=== PATIENT | male | born 1960 | race Caucasian/White ===

== ENCOUNTER 2019-10-28 09:57 | Emergency (ER) | payer SELFPAY ==
[2019-10-28] MEDS ORDERED: ACETAMINOPHEN 325 MG TABLET PO ONE (10:54)
[2019-10-28] MEDS ORDERED: NORMAL SALINE 1000 ML 2,250 ML IV ONE (10:54)
[2019-10-28 11:18] LABS: ABSOLUTE LYMPHOCYTES (AUTO) 0.4 10^3/uL (0.5-4.7); ABSOLUTE MONOCYTES (AUTO) 0.7 10^3/uL (0.1-1.4); ABSOLUTE NEUT (AUTO) 5.9 10^3/uL (1.7-8.2); BASOPHILS % (AUTO) 0.4 % (0-2); EOSINOPHILS % (AUTO) 0.2 % (0-6); HEMATOCRIT 43.8 % (37.9-51.0); HEMOGLOBIN 15.1 g/dL (13.5-17.0); LYMPHOCYTES % (AUTO) 6.1 % (13-45); MEAN CORPUSCULAR HEMOGLOBIN 29.8 pg (27.0-33.4); MEAN CORPUSCULAR HGB CONC 34.5 g/dL (32.0-36.0); MEAN CORPUSCULAR VOLUME 86 fl (80-97); MONOCYTES % (AUTO) 9.7 % (3-13); PLATELET COUNT 230 10^3/uL (150-450); RED BLOOD COUNT 5.08 10^6/uL (4.35-5.55); RED CELL DISTRIBUTION WIDTH 13.1 % (11.5-14.0); SEGMENTED NEUTROPHILS % (AUTO) 83.6 % (42-78); TOTAL CELLS COUNTED % (AUTO) 100 %; WHITE BLOOD COUNT 7.1 10^3/uL (4.0-10.5)
[2019-10-28 11:27] LABS: INTERNATIONAL RATION (INR) 1.03; PROTHROMBIN TIME 13.5 SEC (11.4-15.4)
[2019-10-28 11:37] LABS: ALBUMIN 4.2 g/dL (3.5-5.0); ALKALINE PHOSPHATASE 147 U/L (38-126); ANION GAP 7 (5-19); ASPARTATE AMINO TRANSFERASE 150 U/L (17-59); BILIRUBIN,DIRECT 0.1 mg/dL (0.0-0.4); BILIRUBIN,TOTAL 1.1 mg/dL (0.2-1.3); BLOOD UREA NITROGEN 19 mg/dL (7-20); CALCIUM 9.4 mg/dL (8.4-10.2); CARBON DIOXIDE 27 mmol/L (22-30); CHLORIDE 103 mmol/L (98-107); GLUCOSE 122 mg/dL (75-110); POTASSIUM 4.4 mmol/L (3.6-5.0)
[2019-10-28 11:38] LABS: VENOUS BLOOD BASE EXCESS -1.6 mmol/L; VENOUS BLOOD HCO3 22.3 mmol/L (20-32); VENOUS BLOOD PCO2 35.4 mmHg (35-63); VENOUS BLOOD PH 7.42 (7.30-7.42)
--- NOTE | 2019-10-28 11:57 | RADIOLOGY REPORT (SQ) ---
EXAM DESCRIPTION: CHEST SINGLE VIEW IMAGES COMPLETED DATE/TIME: 10/28/2019 11:27 am REASON FOR STUDY: fever COMPARISON: None. EXAM PARAMETERS: NUMBER OF VIEWS: One view. TECHNIQUE: Single frontal radiographic view of the chest acquired. RADIATION DOSE: NA LIMITATIONS: None. FINDINGS: LUNGS AND PLEURA: No opacities, masses or pneumothorax. No pleural effusion. MEDIASTINUM AND HILAR STRUCTURES: No masses. Contour normal. HEART AND VASCULAR STRUCTURES: Heart normal in size. Normal vasculature. BONES: No acute findings. HARDWARE: None in the chest. OTHER: No other significant finding. IMPRESSION: NO ACUTE RADIOGRAPHIC FINDING IN THE CHEST. TECHNICAL DOCUMENTATION: JOB ID: [id number] 2010 [employer]- All Rights Reserved Reading location - IP/workstation name: [email or web address]
--- NOTE | 2019-10-28 13:14 | RADIOLOGY REPORT (SQ) ---
EXAM DESCRIPTION: CT ABD/PELVIS NO ORAL OR IV IMAGES COMPLETED DATE/TIME: 10/28/2019 12:54 pm REASON FOR STUDY: fever, nausea, elevated lfts COMPARISON: None. TECHNIQUE: CT scan of the abdomen and pelvis performed without intravenous or oral contrast. Images reviewed with lung, soft tissue, and bone windows. Reconstructed coronal and sagittal MPR images revi ewed. All images stored on PACS. All CT scanners at this facility use dose modulation, iterative reconstruction, and/or weight based d osing when appropriate to reduce radiation dose to as low as reasonably achievable (ALARA). [facility]: Dose Right [facility]: CareDose [facility]: Dose Right [facility]: Teradose 4D [facility]: [employer] RADIATION DOSE: CT Rad equipment meets quality standard of care and radiation dose reduction techniq ues were employed. CTDIvol: 7.2 mGy. DLP: 408 mGy-cm.mGy. LIMITATIONS: None. FINDINGS: LOWER CHEST: Mild dependent hypoventilatory change. NON-CONTRASTED LIVER, SPLEEN, ADRENALS: Evaluation limited by lack of IV contrast. No identified sign ificant masses. Hepatic steatosis. PANCREAS: No masses. No peripancreatic inflammatory changes. GALLBLADDER: Cholelithiasis. No gallbladder distention, wall thickening or pericholecystic inflammat ory change. RIGHT KIDNEY AND URETER: No suspicious masses. Assessment limited by lack of IV contrast. Nonspecifi c perinephric stranding. No significant calcifications. No hydronephrosis or hydroureter. LEFT KIDNEY AND URETER: No suspicious masses. Assessment limited by lack of IV contrast. Nonspecific perinephric stranding. No significant calcifications. No hydronephrosis or hydroureter. AORTA AND RETROPERITONEUM: No aneurysm. No retroperitoneal masses or adenopathy. BOWEL AND PERITONEAL CAVITY: No obvious masses or inflammatory changes. No free fluid. Few scattered diverticula. APPENDIX: Normal. PELVIS, BLADDER, AND ABDOMINAL WALL:No abnormal masses. No free fluid. Bladder normal. Fat containin g right inguinal hernia. BONES: No significant findings. OTHER: No other significant finding. IMPRESSION: 1. No evidence of acute intra-abdominal/pelvic process. 2. Hepatic steatosis. Cholelithiasis. COMMENT: Quality ID # [id number]: Final reports with documentation of one or more dose reduction techniques (e.g., Automated exposure control, adjustment of the mA and/or kV according to patient size, use of iterative reconstruction technique) TECHNICAL DOCUMENTATION: JOB ID: [id number] 2010 [employer]- All Rights Reserved Reading location - IP/workstation name: [email or web address]
[2019-10-28 14:52] LABS: APPEARANCE,URINE CLEAR; BILIRUBIN,URINE NEGATIVE (NEGATIVE); COLOR,URINE YELLOW; GLUCOSE, URINE NEGATIVE (NEGATIVE); KETONES,URINE 20 mg/dL (NEGATIVE); PROTEIN,URINE NEGATIVE (NEGATIVE); URINE SPECIFIC GRAVITY 1.019
--- NOTE | 2019-10-28 15:00 | ER Document Report ---
ED General - General Chief Complaint: Nausea Stated Complaint: NAUSEA,COUGH,SHORT OF BREATH Time Seen by Provider: 10/28/19 10:10 Mode of Arrival: Ambulatory Information source: Patient - HPI Notes: Patient arrives complaining of fever generalized body aches and dark urine. He states the generalized body aches has been going on for approximately 24 to 48 hours. They are worse with movement and better with rest. They radiate throughout his body. They are moderate to severe. He states that he is unsure how high his fever has been as he has not taken his temperature. He denies any vomiting or diarrhea. He has had no significant cough or congestion. He states his main symptoms of just been fever and body aches. He denies any known exposures to the COVID virus. - Related Data Allergies/Adverse Reactions: haloperidol [From Haldol] Allergy (Verified 10/28/19 10:49) Past Medical History - General Information source: Patient - Social History Smoking Status: Never Smoker Chew tobacco use (# tins/day): No Frequency of alcohol use: Occasional Drug Abuse: None Family History: Reviewed & Not Pertinent Patient has homicidal ideation: No Pulmonary Medical History: Reports: Hx Asthma Review of Systems - Review of Systems Constitutional: Chills, Fever Cardiovascular: denies: Chest pain, Palpitations Respiratory: denies: Cough, Short of breath -: Yes All other systems reviewed and negative Physical Exam - Vital signs Vitals: Temp Pulse Resp BP Pulse Ox 101.2 F H 71 18 114/70 96 10/28/19 10:14 10/28/19 10:14 10/28/19 10:14 10/28/19 10:14 10/28/19 10:14 Interpretation: Febrile Course - Re-evaluation Re-evalutation: 10/28/19 15:02 Patient presents with fever body aches but no other symptoms. Is imaging of the abdomen and chest revealed no evidence of any type of infectious process. His CBC and chemistry are not significantly remarkable. His urine does not appear infected. He does have elevation of his liver enzymes as well as some hepatic steatosis. I am going to recommend to the patient that he quarantine himself into the results of his COVID test have returned. His symptoms do seem suspicious for COVID. I have also given the patient instructions about hepatic steatosis. 10/28/19 15:03 The patient was evaluated during a global COVID-19 pandemic and that diagnosis was suspected/considered upon their initial presentation. Their evaluation, treatment and testing was consistent with current guidelines for patients who present with complaints or symptoms and may be related to COVID-19. 10/28/19 15:04 - Vital Signs Vital signs: Temp Pulse Resp BP Pulse Ox 98.7 F 71 21 H 113/69 96 10/28/19 12:58 10/28/19 10:14 10/28/19 14:00 10/28/19 14:00 10/28/19 14:00 - Laboratory Result Diagrams: 10/28/19 11:02 10/28/19 11:02 Laboratory results interpreted by me: 10/28/19 10/28/19 10/28/19 11:02 11:02 11:39 Lymph % (Auto) 6.1 L Absolute Lymphs (auto) 0.4 L Seg Neutrophils % 83.6 H Glucose 122 H POC Glucose 113 H AST 150 H ALT 187 H Alkaline Phosphatase 147 H - Diagnostic Test Radiology reviewed: Image reviewed, Reports reviewed - EKG Interpretation by Me EKG shows normal: Sinus rhythm Rate: Normal - 70 Rhythm: NSR [place]/QRS: No: Right axis deviation, Left axis deviation Discharge - Discharge Clinical Impression: Suspected COVID-19 virus infection Condition: Stable Disposition: HOME, SELF-CARE Instructions: COVID-19 Guidance for Persons Under Investigation Additional Instructions: CT scan shows that you have "fatty liver" or hepatic steatosis. This means that some fat cells have invaded your liver. This will need to be monitored by your family doctor. If it progresses the fat cells can crowd out the liver cells and cause your liver to not function properly. This is why is very important that it is monitored by your family physician. Your symptoms and evaluation seem consistent with a COVID virus infection. Therefore, even if your COVID test is negative I recommend that you quarantine yourself until your symptoms have disappeared. Prescriptions: Hydrocodone/Acetaminophen [[place] 5-325 mg Tablet] 1 tab PO Q6 3 Days #12 tablet Forms: Return to Work Referrals: ELISEO MESSINA MD [ACTIVE STAFF] - Follow up in 3-5 days
[2019-10-28 15:35] VITALS: BP 121/63
--- NOTE | 2019-10-28 20:07 | EKG REPORT ---
SEVERITY:- NORMAL ECG - SINUS RHYTHM : Confirmed by: Татьяна Hay MD 28-Oct-2019 20:06:07
== END 2019-10-28 15:34 | disposition home or self-care (01) ==
LOC: ER 09:57
DX: U07.1 COVID-19 (principal); M79.10 Myalgia, unspecified site; R50.9 Fever, unspecified; R11.0 Nausea; R05 Cough; R06.02 Shortness of breath; Z20.828 Contact with and (suspected) exposure to other viral communicable diseases
CPT/HCPCS: 93005; 99284; 96360; 96361; 36415; 87040; 82962; 83605; 85025; 85610; 87635; 80053; 81001; 84484; 82803; 71045; 74176; 93010; J7030; C9803

== ENCOUNTER 2019-11-02 11:37 | Inpatient (IN) | payer SELFPAY ==
[2019-11-02 12:05] LABS: VENOUS BLOOD BASE EXCESS -0.8 mmol/L; VENOUS BLOOD HCO3 22.7 mmol/L (20-32); VENOUS BLOOD PCO2 34.5 mmHg (35-63); VENOUS BLOOD PH 7.44 (7.30-7.42)
[2019-11-02 12:06] LABS: ABSOLUTE BASOPHILS # (AUTO) 0.1 10^3/uL (0.0-0.2); ABSOLUTE LYMPHOCYTES (AUTO) 0.8 10^3/uL (0.5-4.7); ABSOLUTE MONOCYTES (AUTO) 0.5 10^3/uL (0.1-1.4); ABSOLUTE NEUT (AUTO) 10.5 10^3/uL (1.7-8.2); BASOPHILS % (AUTO) 0.5 % (0-2); EOSINOPHILS % (AUTO) 0.3 % (0-6); HEMATOCRIT 39.2 % (37.9-51.0); HEMOGLOBIN 13.4 g/dL (13.5-17.0); LYMPHOCYTES % (AUTO) 6.9 % (13-45); MEAN CORPUSCULAR HEMOGLOBIN 29.3 pg (27.0-33.4); MEAN CORPUSCULAR HGB CONC 34.3 g/dL (32.0-36.0); MEAN CORPUSCULAR VOLUME 85 fl (80-97); MONOCYTES % (AUTO) 4.5 % (3-13); PLATELET COUNT 392 10^3/uL (150-450); RED BLOOD COUNT 4.59 10^6/uL (4.35-5.55); RED CELL DISTRIBUTION WIDTH 14.3 % (11.5-14.0); SEGMENTED NEUTROPHILS % (AUTO) 87.8 % (42-78); TOTAL CELLS COUNTED % (AUTO) 100 %; WHITE BLOOD COUNT 11.9 10^3/uL (4.0-10.5)
[2019-11-02 12:19] LABS: INTERNATIONAL RATION (INR) 1.05; PROTHROMBIN TIME 13.9 SEC (11.4-15.4)
[2019-11-02 12:22] LABS: D-DIMER 2.47 ug/mL (0.00-0.50)
[2019-11-02] MEDS ORDERED: ONDANSETRON HCL INJ/PF 4 MG/2 ML SDV IV ONE (12:30)
[2019-11-02 12:59] LABS: ALBUMIN 3.5 g/dL (3.5-5.0); ALKALINE PHOSPHATASE 307 U/L (38-126); ANION GAP 9 (5-19); ASPARTATE AMINO TRANSFERASE 81 U/L (17-59); BILIRUBIN,DIRECT 1.1 mg/dL (0.0-0.4); BILIRUBIN,TOTAL 1.8 mg/dL (0.2-1.3); BLOOD UREA NITROGEN 27 mg/dL (7-20); CALCIUM 9.2 mg/dL (8.4-10.2); CARBON DIOXIDE 26 mmol/L (22-30); CHLORIDE 106 mmol/L (98-107); GLUCOSE 144 mg/dL (75-110); POTASSIUM 3.2 mmol/L (3.6-5.0); TOTAL PROTEIN 7.3 g/dL (6.3-8.2)
--- NOTE | 2019-11-02 13:00 | RADIOLOGY REPORT (SQ) ---
EXAM DESCRIPTION: CHEST SINGLE VIEW IMAGES COMPLETED DATE/TIME: 11/02/2019 12:49 pm REASON FOR STUDY: bed 5 sepsis protocol COMPARISON: 10/28/2019 EXAM PARAMETERS: NUMBER OF VIEWS: One view. TECHNIQUE: Single frontal radiographic view of the chest acquired. RADIATION DOSE: NA LIMITATIONS: None. FINDINGS: LUNGS AND PLEURA: Diffuse bilateral alveolar type infiltrate consistent with either atypic al pneumonia or pulmonary edema. No effusions. Findings have significantly progressed when compared to prior study dated 10/28/2019. MEDIASTINUM AND HILAR STRUCTURES: No masses. Contour normal. HEART AND VASCULAR STRUCTURES: Heart normal in size. Normal vasculature. BONES: No acute findings. HARDWARE: None in the chest. OTHER: No other significant finding. IMPRESSION: Diffuse bilateral airspace disease consistent with atypical pneumonia or edema. TECHNICAL DOCUMENTATION: JOB ID: [id number] 2010 [employer]- All Rights Reserved Reading location - IP/workstation name: [email or web address]
[2019-11-02] MEDS ORDERED: LORAZEPAM INJ 2 MG/1 ML VIAL IV ONE ×2 (13:03→23:00)
[2019-11-02] MEDS ORDERED: PROMETHAZINE HCL INJ 25 MG/1 ML VIAL IV PRN (13:04)
[2019-11-02] MEDS ORDERED: OXYCODONE-ACETAMINOPHEN 5-325 MG TABLET PO PRN (13:04)
[2019-11-02] MEDS ORDERED: NORMAL SALINE 1000 ML 1,000 ML IV PRN ×2 (13:04→18:25)
[2019-11-02] MEDS ORDERED: ONDANSETRON HCL INJ/PF 4 MG/2 ML SDV IV PRN (13:04)
[2019-11-02] MEDS ORDERED: ACETAMINOPHEN 325 MG TABLET PO PRN (13:04)
[2019-11-02] MEDS ORDERED: MAGNESIUM OXIDE 400 MG TABLET PO SCH (13:15)
[2019-11-02] MEDS ORDERED: CEFTRIAXONE 1 GM/D5W RTU 1 GM/50 ML RTUPB IV ONE (13:27)
[2019-11-02] MEDS ORDERED: POTASSIUM CHLORIDE 10 MEQ TABLET.ER PO ONE (14:00)
[2019-11-02] MEDS: CEFTRIAXONE 1 GM/D5W RTU 1 GM/50 ML RTUPB IV SCH (14:00)
[2019-11-02] MEDS: AZITHROMYCIN 500 MG in DEXTROSE 5%-WATER 250 ML IV SCH (14:00)
[2019-11-02] MEDS: IPRATROPIUM/ALBUTEROL 0.5-2.5 MG/3 ML AMPUL NEB SCH ×2 (14:30→19:39)
--- NOTE | 2019-11-02 15:46 | PDOC H&P ---
History of Present Illness Admission Date/PCP: 11/02/19 13:23 History of Present Illness: YOLA KAPLAN JR is a 59 year old male with no significant past medical history except for occasional tobacco and EtOH abuse, after extensive work-up including COVID-19 testing patient was sent home on hydrocodone to isolate himself. Patient is stating he was doing fine until this Saturday when he started having difficulty breathing, complaining of nausea, loss of taste, patient decided to come to ED. Denies any chest pain, headache, nausea, abdominal pain, vomiting, diarrhea, constipation or any urinary symptoms. COVID-19 testing which was done on 10/28/2019 is back and positive. In ED he was noted to have mild leukocytosis lymphopenia, elevated d-dimer, hypokalemia, elevated T bili and aminotransferases, was noted to be hypoxic on room air and was a started on BiPAP with significant improvement of his symptoms. Hospitalist was consulted for admission. Past Medical History Pulmonary Medical History: Reports: Asthma Social History Smoking Status: Unknown if Ever Smoked Family History Family History: Reviewed & Not Pertinent Parental Family History Reviewed: Yes Children Family History Reviewed: Yes Sibling(s) Family History Reviewed.: Yes Medication/Allergy Home Medications: Hydrocodone/Acetaminophen [[place] 5-325 mg Tablet] 1 tab PO Q6 3 Days #12 tablet 10/28/19 Allergies/Adverse Reactions: haloperidol [From Haldol] Allergy (Verified 10/28/19 10:49) Review of Systems Review of Systems: as per hpi Physical Exam Vital Signs: Temp Pulse Resp BP Pulse Ox 98 F 81 29 H 120/65 95 11/02/19 11:44 11/02/19 14:30 11/02/19 15:01 11/02/19 15:00 11/02/19 15:01 Intake & Output 11/01/19 11/02/19 11/03/19 06:59 06:59 06:59 Intake Total 300 Balance 300 Weight 74.9 kg General appearance: PRESENT: no acute distress, well-developed, well-nourished Head exam: PRESENT: atraumatic, normocephalic Respiratory exam: PRESENT: accessory muscle use, clear to auscultation alessandra, symmetrical, tachypnea. ABSENT: rales, rhonchi, wheezes Cardiovascular exam: PRESENT: RRR. ABSENT: diastolic murmur, rubs, systolic murmur GI/Abdominal exam: PRESENT: normal bowel sounds, soft. ABSENT: distended, guarding, mass, organolmegaly, rebound, tenderness Neurological exam: PRESENT: alert, awake, oriented to person, oriented to place, oriented to time, oriented to situation, CN II-XII grossly intact. ABSENT: motor sensory deficit Skin exam: PRESENT: dry, intact, warm. ABSENT: cyanosis, rash Results Laboratory Results: 11/02/19 11:45 11/02/19 11:45 11/02/19 11/02/19 11/02/19 11:45 11:45 11:45 WBC 11.9 H RBC 4.59 Hgb 13.4 L Hct 39.2 MCV 85 MCH 29.3 MCHC 34.3 RDW 14.3 H Plt Count 392 Seg Neutrophils % 87.8 H VBG pH 7.44 H VBG pCO2 34.5 L VBG HCO3 22.7 VBG Base Excess -0.8 Sodium 140.9 Potassium 3.2 L Chloride 106 Carbon Dioxide 26 Anion Gap 9 BUN 27 H Creatinine 0.97 Est GFR ( Amer) > 60 Glucose 144 H Lactic Acid Calcium 9.2 Total Bilirubin 1.8 H AST 81 H Alkaline Phosphatase 307 H Total Protein 7.3 Albumin 3.5 11/02/19 11:45 WBC RBC Hgb Hct MCV MCH MCHC RDW Plt Count Seg Neutrophils % VBG pH VBG pCO2 VBG HCO3 VBG Base Excess Sodium Potassium Chloride Carbon Dioxide Anion Gap BUN Creatinine Est GFR ( Amer) Glucose Lactic Acid 1.7 Calcium Total Bilirubin AST Alkaline Phosphatase Total Protein Albumin 11/02/19 11:45 Troponin I < 0.012 Impressions: Chest X-Ray 11/02/19 11:39 IMPRESSION: Diffuse bilateral airspace disease consistent with atypical pneumonia or edema. Assessment and Plan - Diagnosis (1) Acute respiratory failure with hypoxia Is this a current diagnosis for this admission?: Yes Plan: Due to COVID-19 infection. COVID-19 from 10/18/2019 is positive. CXR diffuse bilateral airspace disease consistent with atypical pneumonia or edema. Elevated aminotransferase, elevated d-dimer, mild leukocytosis, lymphopenia SPO2 on 80s on RA. VBG pH 7.44. ABG unsuccessful. Admit to IMCU, aggressive pulmonary toileting, duo nebs, BiPAP, empiric broad- spectrum IV antibiotics, IV steroids, zinc, vitamin C, therapeutic dose Lovenox, incentive spirometry, flutter valve, sputum and blood culture. (2) Pneumonia due to COVID-19 virus Is this a current diagnosis for this admission?: Yes Plan: COVID-19 test from 10/28/2019 came back positive. Plan as per 1. (3) Tobacco abuse Is this a current diagnosis for this admission?: Yes Plan: Counseled on quitting. NicoDerm patch will be provided. - Time Time Spent with patient: 25-34 minutes Smoking Cessation Education: 3 to 10 minutes Medications reviewed and adjusted accordingly: Yes Anticipated Discharge Disposition: Home, Self Care Anticipated Discharge Timeframe: within 48 hours
[2019-11-02] MEDS: ZINC SULFATE 220 MG CAPSULE PO SCH (17:58)
[2019-11-02] MEDS: DEXAMETHASONE SOD PHOSPHATE INJ 4 MG/1 ML VIAL IV SCH ×2 (17:58→21:10)
[2019-11-02] MEDS: MORPHINE SULFATE 10 MG/ML INJ IV PRN ×2 (17:58→22:00)
[2019-11-02] MEDS: NICOTINE 21 MG/24 HR PATCH.TD24 TD SCH (17:59)
[2019-11-02] MEDS: ASCORBIC ACID 500 MG TABLET PO SCH (17:59)
[2019-11-02] MEDS: LORAZEPAM INJ 2 MG/1 ML VIAL IV PRN ×2 (18:40→21:40)
[2019-11-02 19:56] LABS: APPEARANCE,URINE SLIGHTLY-CLOUDY; BILIRUBIN,URINE SMALL (NEGATIVE); COLOR,URINE AMBER; GLUCOSE, URINE NEGATIVE (NEGATIVE); KETONES,URINE TRACE mg/dL (NEGATIVE); LEUKOCYTE ESTERASE,URINE NEGATIVE (NEGATIVE); NITRITE,URINE NEGATIVE (NEGATIVE); PROTEIN,URINE 100 mg/dL (NEGATIVE); URINE SPECIFIC GRAVITY 1.034
[2019-11-02 20:14] LABS: ARTERIAL BLOOD BASE EXCESS 0.7 mmol/L; ARTERIAL BLOOD H2CO3 1.15 mmol/L (1.05-1.35); ARTERIAL BLOOD HCO3 24.9 mmol/L (20-24); ARTERIAL BLOOD O2 SATURATION 93.3 % (94-98); ARTERIAL BLOOD PCO2 38.3 mmHg (35-45); ARTERIAL BLOOD PH 7.43 (7.35-7.45); ARTERIAL BLOOD PO2 64.8 mmHg (80-100)
[2019-11-02 20:16] LABS: ARTERIAL BLOOD FIO2 60%
[2019-11-02] MEDS ORDERED: FAMOTIDINE 20 MG TABLET PO SCH (22:00)
[2019-11-02] MEDS ORDERED: TEMAZEPAM 7.5 MG CAPSULE PO SCH (22:00)
[2019-11-02] MEDS ORDERED: ENOXAPARIN SODIUM INJ 80 MG/0.8 ML DISP.SYRIN SUBCUT SCH (22:00)
[2019-11-02] MEDS ORDERED: LORAZEPAM INJ 2 MG/1 ML VIAL ONE (22:55)
[2019-11-03] MEDS: LORAZEPAM INJ 2 MG/1 ML VIAL IV PRN ×3 (00:57→20:15)
[2019-11-03] MEDS ORDERED: LORAZEPAM INJ 2 MG/1 ML VIAL ONE ×2 (01:55→17:10)
[2019-11-03] MEDS: IPRATROPIUM/ALBUTEROL 0.5-2.5 MG/3 ML AMPUL NEB PRN (01:58)
[2019-11-03] MEDS ORDERED: DIAZEPAM INJ 10 MG/2 ML DISP.SYRIN ONE ×2 (02:03→03:21)
[2019-11-03] MEDS ORDERED: DIAZEPAM INJ 10 MG/2 ML DISP.SYRIN IV ONE ×2 (03:00→04:00)
[2019-11-03] MEDS ORDERED: MORPHINE SULFATE 10 MG/ML INJ IV ONE ×2 (03:00→04:00)
[2019-11-03] MEDS ORDERED: DEXMEDETOMIDINE IN 0.9 % NACL 400 MCG/100 ML RTUPB IV ONE (03:03)
[2019-11-03] MEDS: DEXMEDETOMIDINE IN NS 400 MCG/100 ML RTUPB IV PRN ×4 (03:05→21:55)
[2019-11-03 03:31] LABS: ARTERIAL BLOOD BASE EXCESS 1.9 mmol/L; ARTERIAL BLOOD H2CO3 1.31 mmol/L (1.05-1.35); ARTERIAL BLOOD HCO3 26.9 mmol/L (20-24); ARTERIAL BLOOD O2 SATURATION 92.5 % (94-98); ARTERIAL BLOOD PCO2 43.5 mmHg (35-45); ARTERIAL BLOOD PH 7.41 (7.35-7.45); ARTERIAL BLOOD PO2 63.8 mmHg (80-100); ARTERIAL BLOOD TOTAL CO2 28.2 mmol/L (23-27)
[2019-11-03 03:32] LABS: ARTERIAL BLOOD FIO2 90%
--- NOTE | 2019-11-03 05:13 | CRITICAL CARE ADMISSION REPORT ---
HPI Date:: 11/03/19 Time:: 04:20 Reason for ICU Reason:: Hypoxemic respiratory failure. Admission Date/Time & PCP: Admission Date/Time: 11/02/19 13:23 Primary Care Provider: HPI: 59-year-old gentleman with no significant past medical history except for tobacco and EtOH abuse. He was seen in the ED on 10/28/2019 with general body aches and possible fever which was suspicious for COVID-19 infection. He was sent home to self isolate while awaiting results. Patient developed shortness of breath, nausea, loss of taste and return to the emergency room. He was noted in the ED to have mild leukocytosis, elevated d-dimer, elevated total bilirubin and aminotransferases. He was found to be hypoxemic on room air and started on BiPAP. He was then admitted to medicine service and transferred to the [facility]. Over the course of the day, patient required increased amount of oxygen to maintain an SPO2 greater than 90% while on BiPAP. He also became extremely combative requiring escalating doses of Ativan, morphine and Valium. I was called by the medicine service to evaluate the patient for possible admission to the intensive care unit. Upon arrival to his bedside, patient was combative, however he was oxygenating well on 75% FiO2 while on BiPAP. I do not believe that hypoxemia was contributing to his agitation. Due to the level of opioids and benzodiazepines required to prevent patient from removing his BiPAP mask and causing possible harm to himself, I have accepted him to the intensive care unit for close monitoring. His ABG while on BiPAP with 90% FiO2: 7.41/43.5/63.8/26.9. Chest x-ray shows scattered infiltrates which seems to be consistent with his COVID symptoms. Patient was started on a Precedex drip. We will continue to monitor his respiratory status and mental status closely. History obtained from:: Medical record documentation. - Diagnosis/Plan (1) Acute respiratory failure with hypoxia Is this a current diagnosis for this admission?: Yes Plan: Patient quickly became hypoxemic on nonrebreather trial. He is currently maintaining SPO2 greater than 90% on BiPAP with FiO2 of 90%. Given his positive COVID status and good lung compliance as well as adequate ventilation, we will maintain on BiPAP for oxygenation tolerating and SPO2 greater or equal to 85%. Avoid intubation if possible. (2) Pneumonia due to COVID-19 virus Is this a current diagnosis for this admission?: Yes Plan: Continue IV steroids Repeat CXR tomorrow a.m. Continue azithromycin Past Medical History Pulmonary Medical History: Reports: Asthma Psychiatric Medical History: Denies: Depression Past Surgical History Past Surgical History: Reports: None Social/Family History - Social History Smoking Status: Current Some Day Smoker Frequency of Alcohol Use: Social - Medication/Allergies Home Medications: Hydrocodone/Acetaminophen [[place] 5-325 mg Tablet] 1 tab PO Q6 3 Days #12 tablet 10/28/19 Allergies/Adverse Reactions: haloperidol [From Haldol] Allergy (Verified 10/28/19 10:49) Review of Systems ROS unobtainable: Due to mental status Physical Exam Vital Signs: Temp Pulse Resp BP Pulse Ox 98.1 F 121 H 33 H 113/67 93 11/03/19 03:50 11/03/19 01:59 11/03/19 03:33 11/02/19 19:40 11/03/19 03:33 Intake & Output 11/01/19 11/02/19 11/03/19 06:59 06:59 06:59 Intake Total 309 Output Total 250 Balance 59 Weight 72.2 kg Weight/Height Weight 72.2 kg Height 5 ft 6 in Head exam: PRESENT: atraumatic, normocephalic Eye exam: PRESENT: EOMI, PERRLA Ear exam: PRESENT: normal external ear exam Mouth exam: PRESENT: neck supple Neck exam: PRESENT: full ROM. ABSENT: JVD, lymphadenopathy Respiratory exam: PRESENT: rhonchi, symmetrical Cardiovascular exam: PRESENT: RRR, +S1, +S2 Pulses: PRESENT: +2 pedal pulses bilateral Vascular exam: PRESENT: normal capillary refill GI/Abdominal exam: PRESENT: normal bowel sounds, soft. ABSENT: tenderness Extremities exam: PRESENT: full ROM. ABSENT: pedal edema Musculoskeletal exam: PRESENT: full ROM Neurological exam: PRESENT: CN II-XII grossly intact Psychiatric exam: PRESENT: agitated Focused psych exam: PRESENT: restlessness Skin exam: PRESENT: normal color Laboratory/Radiographs Laboratory Results: 11/02/19 11:45 11/02/19 11:45 11/02/19 11/02/19 11/02/19 11:45 11:45 11:45 WBC 11.9 H RBC 4.59 Hgb 13.4 L Hct 39.2 MCV 85 MCH 29.3 MCHC 34.3 RDW 14.3 H Plt Count 392 Seg Neutrophils % 87.8 H Carbonic Acid HCO3/H2CO3 Ratio ABG pH ABG pCO2 ABG pO2 ABG HCO3 ABG O2 Saturation ABG Base Excess VBG pH 7.44 H VBG pCO2 34.5 L VBG HCO3 22.7 VBG Base Excess -0.8 FiO2 Sodium 140.9 Potassium 3.2 L Chloride 106 Carbon Dioxide 26 Anion Gap 9 BUN 27 H Creatinine 0.97 Est GFR ( Amer) > 60 Glucose 144 H Lactic Acid Calcium 9.2 Total Bilirubin 1.8 H AST 81 H Alkaline Phosphatase 307 H Total Protein 7.3 Albumin 3.5 Urine Color Urine Appearance Urine pH Ur Specific [place] Urine Protein Urine Glucose (UA) Urine Ketones Urine Blood Urine Nitrite Ur Leukocyte Esterase Urine WBC (Auto) Urine RBC (Auto) 11/02/19 11/02/19 11/02/19 11:45 15:15 17:42 WBC RBC Hgb Hct MCV MCH MCHC RDW Plt Count Seg Neutrophils % Carbonic Acid HCO3/H2CO3 Ratio ABG pH ABG pCO2 ABG pO2 ABG HCO3 ABG O2 Saturation ABG Base Excess VBG pH VBG pCO2 VBG HCO3 VBG Base Excess FiO2 Sodium Potassium Chloride Carbon Dioxide Anion Gap BUN Creatinine Est GFR ( Amer) Glucose Lactic Acid 1.7 1.6 2.8 H Calcium Total Bilirubin AST Alkaline Phosphatase Total Protein Albumin Urine Color Urine Appearance Urine pH Ur Specific [place] Urine Protein Urine Glucose (UA) Urine Ketones Urine Blood Urine Nitrite Ur Leukocyte Esterase Urine WBC (Auto) Urine RBC (Auto) 11/02/19 11/02/19 11/03/19 18:50 19:55 03:15 WBC RBC Hgb Hct MCV MCH MCHC RDW Plt Count Seg Neutrophils % Carbonic Acid 1.15 1.31 HCO3/H2CO3 Ratio 21:1 20:1 ABG pH 7.43 7.41 ABG pCO2 38.3 43.5 ABG pO2 64.8 L 63.8 L ABG HCO3 24.9 H 26.9 H ABG O2 Saturation 93.3 L 92.5 L ABG Base Excess 0.7 1.9 VBG pH VBG pCO2 VBG HCO3 VBG Base Excess FiO2 60% 90% Sodium Potassium Chloride Carbon Dioxide Anion Gap BUN Creatinine Est GFR ( Amer) Glucose Lactic Acid Calcium Total Bilirubin AST Alkaline Phosphatase Total Protein Albumin Urine Color CRISTELA Urine Appearance SLIGHTLY-CLOUDY Urine pH 5.0 Ur Specific [place] 1.034 Urine Protein 100 H Urine Glucose (UA) NEGATIVE Urine Ketones TRACE H Urine Blood NEGATIVE Urine Nitrite NEGATIVE Ur Leukocyte Esterase NEGATIVE Urine WBC (Auto) 5 Urine RBC (Auto) 3 11/02/19 11:45 Troponin I < 0.012 Impressions: Chest X-Ray 11/02/19 11:39 IMPRESSION: Diffuse bilateral airspace disease consistent with atypical pneumonia or edema. All labs, radiographs, diagnostic studies and EKGs were personally reviewed: Yes In addition, reports of radiographic and diagnostic studies were read: Yes Critical Time Critical Time (minutes): 80 -: The care of a critically ill patient is dynamic. This note represents a static moment in the admission process. Orders and treatments may be given simultaneously and urgently, and time is not compliance representative dealer of the treatment process. This patient requires Critical Care secondary to life threatening organ or limb dysfunction. Without Critical Care services, the patient is at risk for increased mortality and morbidity.
[2019-11-03] MEDS: DEXAMETHASONE SOD PHOSPHATE INJ 4 MG/1 ML VIAL IV SCH ×3 (06:21→21:10)
[2019-11-03] MEDS: HEPARIN SOD (PORCINE) 5,000 UNIT/ML 1 ML VIAL SUBCUT SCH ×3 (06:21→21:10)
[2019-11-03 08:13] LABS: HEMATOCRIT 36.8 % (37.9-51.0); HEMOGLOBIN 12.5 g/dL (13.5-17.0); MEAN CORPUSCULAR HEMOGLOBIN 29.2 pg (27.0-33.4); MEAN CORPUSCULAR VOLUME 86 fl (80-97); RED BLOOD COUNT 4.29 10^6/uL (4.35-5.55); RED CELL DISTRIBUTION WIDTH 14.1 % (11.5-14.0); WHITE BLOOD COUNT 12.2 10^3/uL (4.0-10.5)
[2019-11-03 08:38] LABS: ALKALINE PHOSPHATASE 264 U/L (38-126); ANION GAP 8 (5-19); ASPARTATE AMINO TRANSFERASE 50 U/L (17-59); BILIRUBIN,DIRECT 0.4 mg/dL (0.0-0.4); BILIRUBIN,TOTAL 0.8 mg/dL (0.2-1.3); BLOOD UREA NITROGEN 31 mg/dL (7-20); CALCIUM 8.8 mg/dL (8.4-10.2); CARBON DIOXIDE 26 mmol/L (22-30); CHLORIDE 109 mmol/L (98-107); GLUCOSE 161 mg/dL (75-110); TOTAL PROTEIN 5.5 g/dL (6.3-8.2)
[2019-11-03 08:50] LABS: POTASSIUM 4.4 mmol/L (3.6-5.0)
[2019-11-03 09:11] LABS: ABSOLUTE LYMPHOCYTES# (MANUAL) 0.2 10^3/uL (0.5-4.7); ABSOLUTE MONOCYTES # (MANUAL) 0.6 10^3/uL (0.1-1.4); BASOPHILS % (MANUAL) 0 % (0-2); EOSINOPHILS % (MANUAL) 0 % (0-6); LYMPHOCYTES % (MANUAL) 2 % (13-45); MONOCYTES % (MANUAL) 5 % (3-13); SEGMENTED NEUTROPHILS % (MAN) 93 % (42-78); TOTAL CELLS COUNTED 100
[2019-11-03] MEDS: CEFTRIAXONE 1 GM/D5W RTU 1 GM/50 ML RTUPB IV SCH (09:11)
[2019-11-03] MEDS: NICOTINE 21 MG/24 HR PATCH.TD24 TD SCH (09:12)
[2019-11-03 09:14] LABS: POLYCHROMASIA SLIGHT
[2019-11-03 09:15] LABS: ANISOCYTOSIS SLIGHT; PLATELET CLUMPS PRESENT; PLATELET COMMENT ADEQUATE; POIKILOCYTOSIS SLIGHT; TEAR DROP CELLS SLIGHT
[2019-11-03 09:16] LABS: PLATELET COUNT 395 10^3/uL (150-450)
[2019-11-03] MEDS: THIAMINE HCL 100 MG, FOLIC ACID 1 MG in NORMAL SALINE 250 ML IV SCH (09:50)
[2019-11-03] MEDS ORDERED: CEFTRIAXONE 1 GM/D5W RTU 1 GM/50 ML RTUPB IV SCH (10:00)
[2019-11-03] MEDS ORDERED: FLUTICASONE/UMECLIDIN/VILANTER 100-62.5-25 MCG/DOSE IH SCH (10:00)
[2019-11-03] MEDS: ASCORBIC ACID 500 MG TABLET PO SCH ×2 (11:03→17:24)
[2019-11-03] MEDS: ZINC SULFATE 220 MG CAPSULE PO SCH (11:04)
[2019-11-03] MEDS: AZITHROMYCIN 500 MG in DEXTROSE 5%-WATER 250 ML IV SCH (15:01)
--- NOTE | 2019-11-03 19:03 | EKG REPORT ---
SEVERITY:- ABNORMAL ECG - SINUS TACHYCARDIA LEFT ATRIAL ABNORMALITY DIFFUSE NONSPECIFIC ST-T CHANGES : Confirmed by: Jayro Jamil MD 03-Nov-2019 19:03:03
[2019-11-03] MEDS ORDERED: MORPHINE SULFATE 10 MG/ML INJ ONE (21:38)
[2019-11-03] MEDS: MORPHINE SULFATE 10 MG/ML INJ IV PRN (21:40)
[2019-11-04] MEDS: DEXMEDETOMIDINE IN NS 400 MCG/100 ML RTUPB IV PRN ×5 (02:16→22:30)
[2019-11-04] MEDS: LORAZEPAM INJ 2 MG/1 ML VIAL IV PRN ×8 (02:41→23:58)
[2019-11-04] MEDS: MORPHINE SULFATE 10 MG/ML INJ IV PRN ×5 (02:51→21:23)
[2019-11-04] MEDS: HEPARIN SOD (PORCINE) 5,000 UNIT/ML 1 ML VIAL SUBCUT SCH ×3 (05:39→21:24)
[2019-11-04] MEDS: DEXAMETHASONE SOD PHOSPHATE INJ 4 MG/1 ML VIAL IV SCH ×3 (05:39→21:24)
[2019-11-04 07:11] LABS: HEMATOCRIT 37.2 % (37.9-51.0); HEMOGLOBIN 12.5 g/dL (13.5-17.0); MEAN CORPUSCULAR HGB CONC 33.7 g/dL (32.0-36.0); MEAN CORPUSCULAR VOLUME 86 fl (80-97); PLATELET COUNT 421 10^3/uL (150-450); RED BLOOD COUNT 4.32 10^6/uL (4.35-5.55); RED CELL DISTRIBUTION WIDTH 14.8 % (11.5-14.0); WHITE BLOOD COUNT 12.9 10^3/uL (4.0-10.5)
[2019-11-04] MEDS: ASCORBIC ACID 500 MG TABLET PO SCH ×2 (10:04→18:17)
[2019-11-04] MEDS: ZINC SULFATE 220 MG CAPSULE PO SCH (10:04)
[2019-11-04] MEDS: CEFTRIAXONE 1 GM/D5W RTU 1 GM/50 ML RTUPB IV SCH (10:24)
[2019-11-04] MEDS: THIAMINE HCL 100 MG, FOLIC ACID 1 MG in NORMAL SALINE 250 ML IV SCH (10:24)
[2019-11-04] MEDS: NICOTINE 21 MG/24 HR PATCH.TD24 TD SCH (10:25)
--- NOTE | 2019-11-04 12:47 | PDOC CRITICAL CARE PROG REPORT ---
General Date:: 11/04/19 ICU Day:: 1 Hospital Day:: 1 Resuscitation Status: Full Code - 1 Events in the past 12 to 24 Hours:: Still in alcohol WD. Review of systems relevant to events:: Neurological, pulmonary. Reason for ICU Addmission:: Hypoxemic respiratory failure. Need for bipap. Risk of intubation, COVID positive, alcohol WD. - Medications: Medications reviewed and adjusted accordingly: Yes Vasopressors:: None Sedation:: Precedex. Physical Exam Vital Signs: Temp Pulse Resp BP Pulse Ox 95.7 F L 43 L 24 H 166/87 H 94 11/04/19 12:00 11/04/19 10:00 11/04/19 10:00 11/04/19 12:00 11/04/19 10:00 Intake & Output 11/03/19 11/04/19 11/05/19 06:59 06:59 06:59 Intake Total 329 826.2 93 Output Total 350 770 100 Balance -21 56.2 -7 Weight 72.2 kg 73.3 kg Weight/Height Weight 73.3 kg Height 5 ft 6 in General appearance: PRESENT: no acute distress, disheveled Head exam: PRESENT: atraumatic, normocephalic Eye exam: PRESENT: conjunctiva pink, EOMI, PERRLA. ABSENT: scleral icterus Ear exam: PRESENT: normal external ear exam Mouth exam: PRESENT: moist, tongue midline Respiratory exam: PRESENT: clear to auscultation alessandra. ABSENT: rales, rhonchi, wheezes Cardiovascular exam: PRESENT: bradycardia GI/Abdominal exam: PRESENT: normal bowel sounds, soft. ABSENT: distended, g uarding, mass, organolmegaly, rebound, tenderness Rectal exam: PRESENT: deferred Gentrourinary exam: PRESENT: indwelling catheter Extremities exam: PRESENT: full ROM. ABSENT: calf tenderness, clubbing, pedal edema Musculoskeletal exam: PRESENT: normal inspection Neurological exam: PRESENT: altered, CN II-XII grossly intact, other - Arousable. Skin exam: PRESENT: dry, intact, warm. ABSENT: cyanosis, rash Tubes/Lines: PRESENT: Other - Bipap Laboratory/Radiographs Laboratory Results: 11/04/19 06:38 11/03/19 07:56 11/04/19 06:38 WBC 12.9 H RBC 4.32 L Hgb 12.5 L Hct 37.2 L MCV 86 MCH 29.0 MCHC 33.7 RDW 14.8 H Plt Count 421 11/02/19 11:45 Troponin I < 0.012 Impressions: Chest X-Ray 11/02/19 11:39 IMPRESSION: Diffuse bilateral airspace disease consistent with atypical pneumonia or edema. EKG: SB All labs, radiographs, diagnostic studies and EKGs were personally reviewed: Yes In addition, reports of radiographic and diagnostic studies were read: Yes Assessment and Plan - Diagnosis (1) Alcohol withdrawal delirium Is this a current diagnosis for this admission?: Yes Plan: At this point this is his main dysfunction. He is in need of bipap. Is hypoxic without.Continue ativan and precedex. (2) Acute respiratory failure with hypoxia Is this a current diagnosis for this admission?: Yes Plan: His CXR is not looking bad and his lungs sound normal. We hope to have him off bipap when withdrawal clears. (3) Pneumonia due to COVID-19 virus Is this a current diagnosis for this admission?: Yes Plan: He is on decadron. Stable right now but at risk of intubation Plan Summary: Keep in ICU for delirium and tenuous respiratory status until he is more appropriate. Critical Time Critical Time (minutes): 35 Level of Care: ICU Anticipated discharge: Home Anticipated DC Timeframe: Other -: 1. The care of a critical patient is a dynamic process. This note is a customer success representative synopsis but static in nature. The timeframe for treatments given in order is not necessarily the actual time these treatments may have been done. 2. This patient requires critical care secondary to ongoing requirements for therapy not offered or safe outside the critical care environment. Transfer to a lower level of care will result in altered life or limb morbidity and mortality. 3. Multidisciplinary rounds completed. 4. ABCDE bundle addressed.
[2019-11-04] MEDS: AZITHROMYCIN 500 MG in DEXTROSE 5%-WATER 250 ML IV SCH (14:43)
--- NOTE | 2019-11-04 15:03 | RADIOLOGY REPORT (SQ) ---
EXAM DESCRIPTION: CT HEAD WITHOUT IMAGES COMPLETED DATE/TIME: 11/04/2019 1:30 pm REASON FOR STUDY: Mental Status Change COMPARISON: None. TECHNIQUE: Axial images acquired through the brain without intravenous contrast. Images reviewed wi th bone, brain and subdural windows. Additional sagittal and coronal reconstructions were generated. Images stored on PACS. All CT scanners at this facility use dose modulation, iterative reconstruction, and/or weight based d osing when appropriate to reduce radiation dose to as low as reasonably achievable (ALARA). [facility]: Dose Right [facility]: CareDose [facility]: Dose Right [facility]: Teradose 4D [facility]: Alloptic RADIATION DOSE: CT Rad equipment meets quality standard of care and radiation dose reduction techniq ues were employed. CTDIvol: 48.6 - 48.6 mGy. DLP: 1907 mGy-cm. mGy. LIMITATIONS: None. FINDINGS: VENTRICLES: Normal size and contour. CEREBRUM: No masses. No hemorrhage. No midline shift. No evidence for acute infarction. Normal gra y/white matter differentiation. No areas of low density in the white matter. CEREBELLUM: No masses. No hemorrhage. No alteration of density. No evidence for acute infarction. There appears to be a degree of superior vermian atrophy. EXTRAAXIAL SPACES: No fluid collections. No masses. ORBITS AND GLOBE: No intra- or extraconal masses. Normal contour of globe without masses. CALVARIUM: No fracture. PARANASAL SINUSES: Scant fluid levels are seen within the sphenoid compartment. SOFT TISSUES: No mass or hematoma. OTHER: No other significant finding. IMPRESSION: No acute intracranial findings. Incidental note is made of scant fluid levels within th e sphenoid compartment. EVIDENCE OF ACUTE STROKE: NO. COMMENT: Quality ID # [id number]: Final reports with documentation of one or more dose reduction techniques (e.g., Automated exposure control, adjustment of the mA and/or kV according to patient size, use of iterative reconstruction technique) TECHNICAL DOCUMENTATION: JOB ID: [id number] 2010 [employer]- All Rights Reserved Reading location - IP/workstation name: [email or web address]
[2019-11-04] MEDS ORDERED: LORAZEPAM INJ 2 MG/1 ML VIAL ONE (17:41)
[2019-11-04] MEDS ORDERED: MORPHINE SULFATE 10 MG/ML INJ IV ONE (19:50)
[2019-11-04] MEDS ORDERED: DIAZEPAM INJ 10 MG/2 ML DISP.SYRIN IV ONE (22:16)
[2019-11-04] MEDS ORDERED: DIAZEPAM INJ 10 MG/2 ML DISP.SYRIN ONE (22:34)
[2019-11-05] MEDS: MORPHINE SULFATE 10 MG/ML INJ IV PRN ×2 (02:00→06:00)
[2019-11-05] MEDS: DEXMEDETOMIDINE IN NS 400 MCG/100 ML RTUPB IV PRN ×5 (02:20→15:54)
[2019-11-05] MEDS: LORAZEPAM INJ 2 MG/1 ML VIAL IV PRN ×2 (04:56→18:33)
[2019-11-05] MEDS: DEXAMETHASONE SOD PHOSPHATE INJ 4 MG/1 ML VIAL IV SCH ×3 (05:00→22:31)
[2019-11-05] MEDS: HEPARIN SOD (PORCINE) 5,000 UNIT/ML 1 ML VIAL SUBCUT SCH ×3 (05:00→22:32)
[2019-11-05] MEDS: THIAMINE HCL 100 MG, FOLIC ACID 1 MG in NORMAL SALINE 250 ML IV SCH (10:21)
[2019-11-05] MEDS: NICOTINE 21 MG/24 HR PATCH.TD24 TD SCH (10:21)
[2019-11-05] MEDS: CEFTRIAXONE 1 GM/D5W RTU 1 GM/50 ML RTUPB IV SCH (10:21)
[2019-11-05] MEDS: ASCORBIC ACID 500 MG TABLET PO SCH ×2 (10:22→17:52)
[2019-11-05] MEDS: ZINC SULFATE 220 MG CAPSULE PO SCH (10:22)
--- NOTE | 2019-11-05 11:56 | PDOC CRITICAL CARE PROG REPORT ---
General Date:: 11/05/19 ICU Day:: 2 Hospital Day:: 2 Resuscitation Status: Full Code Events in the past 12 to 24 Hours:: Patient remains in four point restraints due to DT. The patient continues to require the need for BIPAP and also requires the use of Precedex for agitation/anxiety DT management. Also requiring PRN ativan and morphine for com fort and agitation. Still in DTs, needing bipap. Review of systems relevant to events:: A ful lreview of system is unable to obtain at this time due to patients sedation and agitation. The patient is on precedex and ativan for agitation control. Pulmonary, neurological. Reason for ICU Addmission:: Hypoxemic respiratory failure. Need for bipap. Risk of intubation, COVID positive, alcohol WD. - Medications: Medications reviewed and adjusted accordingly: Yes Vasopressors:: none None Sedation:: Precedex, Ativan, Morphine as needed Physical Exam Vital Signs: Temp Pulse Resp BP Pulse Ox 98.8 F 57 L 25 H 169/97 H 90 L 11/05/19 08:00 11/05/19 10:00 11/05/19 10:00 11/05/19 10:00 11/05/19 10:00 Intake & Output 11/04/19 11/05/19 11/06/19 06:59 06:59 06:59 Intake Total 826.2 1121.2 100 Output Total 770 1600 90 Balance 56.2 -478.8 10 Weight 73.3 kg 72.1 kg Weight/Height Weight 72.1 kg Height 5 ft 6 in General appearance: PRESENT: no acute distress, well-developed, well-nourished Head exam: PRESENT: atraumatic, normocephalic Eye exam: PRESENT: PERRLA Ear exam: PRESENT: normal external ear exam Mouth exam: PRESENT: dry mucosa, neck supple Neck exam: PRESENT: full ROM. ABSENT: carotid bruit, JVD, lymphadenopathy, thyromegaly Respiratory exam: PRESENT: clear to auscultation alessandra, decreased breath sounds, other - requiring use of bipap 13/11. ABSENT: rales, rhonchi, wheezes Cardiovascular exam: PRESENT: RRR, +S1, +S2. ABSENT: diastolic murmur, rubs, systolic murmur Pulses: PRESENT: normal dorsalis pedis pul Vascular exam: PRESENT: normal capillary refill GI/Abdominal exam: PRESENT: normal bowel sounds, soft. ABSENT: distended, guarding, mass, organolmegaly, rebound, tenderness Rectal exam: PRESENT: deferred Extremities exam: PRESENT: full ROM. ABSENT: calf tenderness, clubbing, pedal edema Neurological exam: PRESENT: alert, oriented to person, other - no neurological deficit noted patient on precedex for DT MAEW. ABSENT: oriented to place, oriented to time, oriented to situation, motor sensory deficit Psychiatric exam: PRESENT: agitated, anxious. ABSENT: appropriate affect, homicidal ideation, normal mood, suicidal ideation Skin exam: PRESENT: dry, intact, warm. ABSENT: cyanosis, rash Laboratory/Radiographs Laboratory Results: 11/04/19 06:38 11/03/19 07:56 11/02/19 11:45 Troponin I < 0.012 Impressions: Chest X-Ray 11/02/19 11:39 IMPRESSION: Diffuse bilateral airspace disease consistent with atypical pneumonia or edema. Head CT 11/04/19 00:00 IMPRESSION: No acute intracranial findings. Incidental note is made of scant fluid levels within the sphenoid compartment. EVIDENCE OF ACUTE STROKE: NO. All labs, radiographs, diagnostic studies and EKGs were personally reviewed: Yes In addition, reports of radiographic and diagnostic studies were read: Yes Assessment and Plan - Diagnosis (1) Acute respiratory failure with hypoxia Is this a current diagnosis for this admission?: Yes Plan: His CXR is not looking bad and his lungs sound normal. We hope to have him off bipap when withdrawal clears. Continue BIPAP wean precedex as tolerated and begin allowing breaks from Bipap as tolerated (2) Alcohol withdrawal delirium Is this a current diagnosis for this admission?: Yes Plan: At this point this is his main dysfunction. He is in need of bipap. Is hypoxic without.Continue ativan and precedex. wean ativan frequency and precedex as tolerated Plan Summary: Continue ICU monitoring due to high risk of decompensation due to COVID 19 DX and DT. Continue use of BIPAP and continue precedex wean as tolerated and wean frequency of ativan as tolerated. Keep in ICU for delirium and tenuous respiratory status until he is more appropriate. Critical Time Critical Time (minutes): 54 Level of Care: ICU Anticipated discharge: Home Anticipated DC Timeframe: within 24 hours, within 48 hours, within 36 hours, within 72 hours, when bed available -: 1. The care of a critical patient is a dynamic process. This note is a medical collections representative synopsis but static in nature. The timeframe for treatments giv en in order is not necessarily the actual time these treatments may have been done. 2. This patient requires critical care secondary to ongoing requirements for therapy not offered or safe outside the critical care environment. Transfer to a lower level of care will result in altered life or limb morbidity and mortality. 3. Multidisciplinary rounds completed. 4. ABCDE bundle addressed.
[2019-11-05] MEDS: AZITHROMYCIN 500 MG in DEXTROSE 5%-WATER 250 ML IV SCH (14:11)
[2019-11-05] MEDS ORDERED: PROPOFOL 1,000 MG/100 ML INFUS..BTL IV ONE (19:53)
[2019-11-05] MEDS: PROPOFOL 1,000 MG/100 ML INFUS..BTL IV PRN (20:08)
[2019-11-06] MEDS: LORAZEPAM INJ 2 MG/1 ML VIAL IV PRN ×2 (00:55→17:13)
[2019-11-06] MEDS: MORPHINE SULFATE 10 MG/ML INJ IV PRN ×2 (00:55→09:38)
[2019-11-06] MEDS ORDERED: ACYCLOVIR SODIUM INJ/PF 500 MG/10 ML SDV IV ONE ×2 (01:49→03:10)
[2019-11-06] MEDS: ACYCLOVIR SODIUM INJ/PF 500 MG/10 ML SDV IV SCH ×2 (03:33→05:16)
[2019-11-06 04:30] LABS: HEMATOCRIT 40.6 % (37.9-51.0); HEMOGLOBIN 13.8 g/dL (13.5-17.0); MEAN CORPUSCULAR HEMOGLOBIN 29.1 pg (27.0-33.4); MEAN CORPUSCULAR HGB CONC 33.9 g/dL (32.0-36.0); MEAN CORPUSCULAR VOLUME 86 fl (80-97); PLATELET COUNT 431 10^3/uL (150-450); RED BLOOD COUNT 4.74 10^6/uL (4.35-5.55); RED CELL DISTRIBUTION WIDTH 14.6 % (11.5-14.0)
[2019-11-06 04:50] LABS: ABSOLUTE LYMPHOCYTES# (MANUAL) 0.2 10^3/uL (0.5-4.7); BAND NEUTROPHILS % (MANUAL) 1 % (3-5); BASOPHILS % (MANUAL) 0 % (0-2); EOSINOPHILS % (MANUAL) 0 % (0-6); LYMPHOCYTES % (MANUAL) 1 % (13-45); MONOCYTES % (MANUAL) 6 % (3-13); SEGMENTED NEUTROPHILS % (MAN) 92 % (42-78); TOTAL CELLS COUNTED 100
[2019-11-06 04:51] LABS: ANISOCYTOSIS SLIGHT; PLATELET COMMENT ADEQUATE; POLYCHROMASIA SLIGHT; TOXIC GRANULATION 1+
[2019-11-06 04:57] LABS: ANION GAP 11 (5-19); BLOOD UREA NITROGEN 38 mg/dL (7-20); CALCIUM 8.9 mg/dL (8.4-10.2); CARBON DIOXIDE 26 mmol/L (22-30); CHLORIDE 111 mmol/L (98-107); GLUCOSE 114 mg/dL (75-110); POTASSIUM 4.6 mmol/L (3.6-5.0)
[2019-11-06] MEDS: HEPARIN SOD (PORCINE) 5,000 UNIT/ML 1 ML VIAL SUBCUT SCH ×3 (05:29→21:22)
[2019-11-06] MEDS: DEXAMETHASONE SOD PHOSPHATE INJ 4 MG/1 ML VIAL IV SCH ×3 (05:29→21:23)
[2019-11-06] MEDS: PROPOFOL 1,000 MG/100 ML INFUS..BTL IV PRN (05:41)
[2019-11-06] MEDS: DEXMEDETOMIDINE IN 0.9 % NACL 400 MCG/100 ML RTUPB IV PRN ×5 (07:39→21:24)
[2019-11-06] MEDS ORDERED: DEXMEDETOMIDINE IN 0.9 % NACL 400 MCG/100 ML RTUPB IV ONE (07:42)
[2019-11-06] MEDS ORDERED: NORMAL SALINE 500 ML IV PRN (09:13)
[2019-11-06] MEDS: ACYCLOVIR SODIUM 700 MG in NORMAL SALINE 250 ML IV SCH ×2 (09:41→17:13)
[2019-11-06] MEDS: CEFTRIAXONE 1 GM/D5W RTU 1 GM/50 ML RTUPB IV SCH (09:41)
[2019-11-06] MEDS: ASCORBIC ACID 500 MG TABLET PO SCH (09:42)
[2019-11-06] MEDS: ZINC SULFATE 220 MG CAPSULE PO SCH (09:42)
[2019-11-06] MEDS ORDERED: OLANZAPINE 5 MG TABLET PO ONE (09:48)
[2019-11-06] MEDS ORDERED: ACYCLOVIR SODIUM 700 MG in NORMAL SALINE 100 ML IV SCH (10:00)
--- NOTE | 2019-11-06 10:47 | PDOC CRITICAL CARE PROG REPORT ---
General Date:: 11/06/19 Resuscitation Status: Full Code Events in the past 12 to 24 Hours:: continues to require BIPAP will desaturate quickly. Continues to be withdrawing requiring restraints and use of ativan and precedex to control agitation.Continues to require ICU due to high risk of decompensation. Review of systems relevant to events:: Unable to complete a review of system due to confusion and agitation when awakened. Reason for ICU Addmission:: Hypoxemic respiratory failure. Need for bipap. Risk of intubation, COVID positive, alcohol WD. - Medications: Medications reviewed and adjusted accordingly: Yes Vasopressors:: none Sedation:: precedex, ativan Physical Exam Vital Signs: Temp Pulse Resp BP Pulse Ox 99.9 F 73 26 H 162/83 H 92 11/06/19 08:39 11/05/19 22:00 11/06/19 09:01 11/06/19 08:39 11/06/19 09:01 Intake & Output 11/05/19 11/06/19 11/07/19 06:59 06:59 06:59 Intake Total 1121.2 985.2 30 Output Total 1600 1590 140 Balance -478.8 -604.8 -110 Weight 72.1 kg 71.9 kg Weight/Height Weight 71.9 kg Height 5 ft 6 in General appearance: PRESENT: no acute distress, well-developed, well-nourished Head exam: PRESENT: atraumatic, normocephalic Eye exam: PRESENT: conjunctiva pink, EOMI, PERRLA Ear exam: PRESENT: normal external ear exam Mouth exam: PRESENT: moist, tongue midline Neck exam: PRESENT: full ROM Respiratory exam: PRESENT: clear to auscultation alessandra, decreased breath sounds Cardiovascular exam: PRESENT: RRR, +S1, +S2 Pulses: PRESENT: normal radial pulses, normal dorsalis pedis pul Vascular exam: PRESENT: normal capillary refill GI/Abdominal exam: PRESENT: normal bowel sounds, soft. ABSENT: organolmegaly, tenderness Rectal exam: PRESENT: deferred Extremities exam: PRESENT: full ROM Musculoskeletal exam: PRESENT: other - 4 point restraints ROM performed without diffuculty Neurological exam: PRESENT: alert, awake, oriented to person. ABSENT: oriented to place, oriented to time, oriented to situation Psychiatric exam: PRESENT: agitated, anxious Skin exam: PRESENT: dry, intact, warm. ABSENT: cyanosis, rash Laboratory/Radiographs Laboratory Results: 11/06/19 04:20 11/06/19 04:20 11/06/19 11/06/19 04:20 04:20 WBC 17.0 H RBC 4.74 Hgb 13.8 Hct 40.6 MCV 86 MCH 29.1 MCHC 33.9 RDW 14.6 H Plt Count 431 Seg Neutrophils % Not Reportable Sodium 148.3 H Potassium 4.6 Chloride 111 H Carbon Dioxide 26 Anion Gap 11 BUN 38 H Creatinine 0.84 Est GFR ( Amer) > 60 Glucose 114 H Calcium 8.9 11/02/19 11:45 Troponin I < 0.012 Impressions: Chest X-Ray 11/02/19 11:39 IMPRESSION: Diffuse bilateral airspace disease consistent with atypical pneumonia or edema. Head CT 11/04/19 00:00 IMPRESSION: No acute intracranial findings. Incidental note is made of scant fluid levels within the sphenoid compartment. EVIDENCE OF ACUTE STROKE: NO. All labs, radiographs, diagnostic studies and EKGs were personally reviewed: Yes In addition, reports of radiographic and diagnostic studies were read: Yes Assessment and Plan - Diagnosis (1) Acute respiratory failure with hypoxia Is this a current diagnosis for this admission?: Yes Plan: continue with BIPAP and use of precedex ativan for withdrawal and claustrophobia (2) Alcohol withdrawal delirium Is this a current diagnosis for this admission?: Yes Plan: continue use of ativan will decrease frequency and add ODT zyprexa and continue use of precedex wean as tolerated Plan Summary: Continue ICU monitoring due to high risk of decompensation due to COVID 19 DX and DT. Continue use of BIPAP and continue precedex wean as tolerated and wean frequency of ativan as tolerated. Keep in ICU for delirium and tenuous respiratory status until he is more appropriate. Continue to monitor in ICU and add zyprexa for control of DT decrease ativan frequency and wean precedex as tolerated. Continue BIPAP support for COVID induced hypoxia. Critical Time Critical Time (minutes): 55 Level of Care: ICU -: 1. The care of a critical patient is a dynamic process. This note is a appliance service representative synopsis but static in nature. The timeframe for treatments giv en in order is not necessarily the actual time these treatments may have been done. 2. This patient requires critical care secondary to ongoing requirements for therapy not offered or safe outside the critical care environment. Transfer to a lower level of care will result in altered life or limb morbidity and mortality. 3. Multidisciplinary rounds completed. 4. ABCDE bundle addressed.
[2019-11-06] MEDS: OLANZAPINE 5 MG TAB.RAPDIS PO SCH ×2 (13:48→21:23)
[2019-11-06] MEDS: NICOTINE 21 MG/24 HR PATCH.TD24 TD SCH (13:49)
[2019-11-06] MEDS: THIAMINE HCL 100 MG, FOLIC ACID 1 MG in NORMAL SALINE 250 ML IV SCH (13:50)
[2019-11-06] MEDS: AZITHROMYCIN 500 MG in DEXTROSE 5%-WATER 250 ML IV SCH (13:50)
[2019-11-06] MEDS ORDERED: DEXTROSE 10%-WATER 1,000 ML IV PRN (14:00)
[2019-11-06] MEDS ORDERED: DEXTROSE 50%-WATER SYRINGE 25 GM/50 ML DOSE IV PRN (14:00)
[2019-11-06] MEDS ORDERED: DEXTROSE 40% GEL 15 GM TUBE X 2 PO PRN (14:00)
[2019-11-06] MEDS ORDERED: DEXTROSE 50%-WATER SYRINGE 12.5 GM/25 ML DOSE IV PRN (14:00)
[2019-11-06] MEDS ORDERED: GLUCAGON,HUMAN RECOMB 1 MG INJ IM PRN (14:00)
[2019-11-06] MEDS ORDERED: DEXTROSE 40% GEL 15 GM TUBE PO PRN (14:00)
[2019-11-06] MEDS ORDERED: ASCORBIC ACID IV SCH (15:00)
[2019-11-06] MEDS ORDERED: DEXTROSE 5% IV SCH (15:00)
[2019-11-06] MEDS ORDERED: WATER IV SCH (15:00)
[2019-11-06] MEDS: DEXTROSE 5% IV SCH ×2 (15:17→21:23)
[2019-11-06] MEDS: WATER IV SCH ×2 (15:17→21:23)
[2019-11-06] MEDS: ASCORBIC ACID IV SCH ×2 (15:17→21:23)
--- NOTE | 2019-11-06 15:42 | RADIOLOGY REPORT (SQ) ---
EXAM DESCRIPTION: PICC INSERTION IMAGES COMPLETED DATE/TIME: 11/06/2019 3:17 pm REASON FOR STUDY: TPN COMPARISON: None. FLUOROSCOPY TIME: NONE 1 images saved to PACS. TECHNIQUE: Fluoroscopic and ultrasound guided PICC placement. LIMITATIONS: None. PROCEDURE: After written consent and assessment were obtained, the patient was brought into the fluo roscopy room and placed supine on the table. Ultrasound evaluation of potential access sites were per formed. After successfully identifying a patent left upper extremity basilic vein, the left upper arm was prepped and draped in a sterile fashion along with the ultrasound probe. The entry site was anes thetized with 1% lidocaine. A 21 gauge 7 cm needle was advanced through the skin and into the basilic vein under live ultrasound guidance. An ultrasound image was saved to PACS confirming access site. A .018 guide wire was then inserted through the needle and into the venous system. The needle was th en removed and an 11 blade scalpel was used to make a 1cm skin incision. A 5 fr peel-away sheath was advanced over the wire and into the venous system. A measurement was then made using the existing wi re and live fluoroscopic guidance. The wire was then removed and trimmed. The PICC was advanced throu gh the peel-away sheath and into the venous system. The peel-away sheath was removed and the catheter was adhered to the patients arm with a stat lock. The catheter was then aspirated and flushed and a sterile bandage was placed over the access site. A fluoroscopic spot image was saved to PACS confirm ing the catheter tip within the SVC. IMPRESSION: SUCCESSFUL PLACEMENT OF A 5 FR DUAL LUMEN 45 CM PICC IN THE LEFT BASILIC VEIN. COMMENT: Patient medication list reviewed: Yes- Quality ID# 130:Eligible professional attests to doc umenting in the medical record they obtained, updated, or reviewed the patient's current medications. . Quality ID 145: Final reports for procedures using fluoroscopy that document radiation exposure marita francesca, or exposure time and number of fluorographic images (if radiation exposure indices are not avail able) Quality ID #76: The patient was prepped and draped using maximum sterile barrier technique including cap, mask, sterile gown, sterile gloves, a large sterile sheet, hand hygiene, and 2% Chlorhexidine fo r cutaneous antisepsis. When ultrasound is used, sterile ultrasound techniques are followed requiring sterile gel and sterile probes. TECHNICAL DOCUMENTATION: JOB ID: [id number] 2010 [employer]- All Rights Reserved rev-08/16 Reading location - IP/workstation name: [email or web address]
[2019-11-06] MEDS: INSULIN REG, HUMAN 100 UNIT/ML 3 ML VIAL (PYX) SUBCUT SCH ×2 (17:15→23:20)
[2019-11-06 17:16] LABS: HEMATOCRIT 28.3 % (37.9-51.0); MEAN CORPUSCULAR HEMOGLOBIN 29.4 pg (27.0-33.4); MEAN CORPUSCULAR HGB CONC 33.5 g/dL (32.0-36.0); MEAN CORPUSCULAR VOLUME 88 fl (80-97); PLATELET COUNT 275 10^3/uL (150-450); RED BLOOD COUNT 3.22 10^6/uL (4.35-5.55); RED CELL DISTRIBUTION WIDTH 14.3 % (11.5-14.0); WHITE BLOOD COUNT 9.4 10^3/uL (4.0-10.5)
[2019-11-06 17:20] LABS: INTERNATIONAL RATION (INR) 1.31; PROTHROMBIN TIME 16.5 SEC (11.4-15.4)
[2019-11-06 17:33] LABS: HEMOGLOBIN 9.5 g/dL (13.5-17.0)
[2019-11-06 18:55] LABS: ALBUMIN 2.6 g/dL (3.5-5.0); ALKALINE PHOSPHATASE 262 U/L (38-126); ASPARTATE AMINO TRANSFERASE 40 U/L (17-59); BILIRUBIN,DIRECT 0.1 mg/dL (0.0-0.4); BILIRUBIN,TOTAL 0.8 mg/dL (0.2-1.3); BLOOD UREA NITROGEN 37 mg/dL (7-20); CALCIUM 7.6 mg/dL (8.4-10.2); GLUCOSE 155 mg/dL (75-110); PHOSPHORUS 3.9 mg/dL (2.5-4.5); POTASSIUM 4.6 mmol/L (3.6-5.0); TOTAL PROTEIN 5.4 g/dL (6.3-8.2); TRIGLYCERIDES 344 mg/dL (<150)
[2019-11-06 18:59] LABS: CARBON DIOXIDE 30 mmol/L (22-30); CHLORIDE 113 mmol/L (98-107)
[2019-11-06 19:06] LABS: PREALBUMIN 10.6 mg/dL (17.6-36.0)
[2019-11-06 19:07] LABS: ANION GAP 4 (5-19)
[2019-11-06] MEDS: AMINO ACIDS 5 %/DEXTROSE 20 % 1,000 ML IV PRN (21:23)
[2019-11-07] MEDS: ACYCLOVIR SODIUM 700 MG in NORMAL SALINE 100 ML IV SCH ×3 (01:12→17:45)
[2019-11-07] MEDS ORDERED: ACYCLOVIR SODIUM 700 MG in NORMAL SALINE 100 ML IV SCH (02:00)
[2019-11-07] MEDS: DEXMEDETOMIDINE IN 0.9 % NACL 400 MCG/100 ML RTUPB IV PRN ×4 (02:10→21:00)
[2019-11-07] MEDS: DEXTROSE 5% IV SCH ×4 (03:06→21:34)
[2019-11-07] MEDS: ASCORBIC ACID IV SCH ×4 (03:06→21:34)
[2019-11-07] MEDS: WATER IV SCH ×4 (03:06→21:34)
[2019-11-07] MEDS: LORAZEPAM INJ 2 MG/1 ML VIAL IV PRN (03:09)
[2019-11-07] MEDS: DEXAMETHASONE SOD PHOSPHATE INJ 4 MG/1 ML VIAL IV SCH ×2 (05:35→21:39)
[2019-11-07] MEDS: HEPARIN SOD (PORCINE) 5,000 UNIT/ML 1 ML VIAL SUBCUT SCH ×3 (05:35→21:34)
[2019-11-07] MEDS: INSULIN REG, HUMAN 100 UNIT/ML 3 ML VIAL (PYX) SUBCUT SCH ×3 (05:36→17:45)
[2019-11-07] MEDS ORDERED: OLANZAPINE 5 MG TABLET PO SCH (10:00)
[2019-11-07] MEDS: CEFTRIAXONE 1 GM/D5W RTU 1 GM/50 ML RTUPB IV SCH (10:10)
[2019-11-07] MEDS ORDERED: DEXTROSE 10%-WATER 1,000 ML IV PRN (10:48)
[2019-11-07] MEDS ORDERED: DEXTROSE 40% GEL 15 GM TUBE PO PRN ×2 (10:48)
[2019-11-07] MEDS: THIAMINE HCL 100 MG, FOLIC ACID 1 MG in NORMAL SALINE 250 ML IV SCH (11:50)
[2019-11-07 12:01] LABS: INTERNATIONAL RATION (INR) 1.17; PROTHROMBIN TIME 15.1 SEC (11.4-15.4)
[2019-11-07 12:22] LABS: D-DIMER 12.58 ug/mL (0.00-0.50)
[2019-11-07] MEDS: NORMAL SALINE 10 ML SDV (SCHEDULED) IV SCH ×2 (12:28→21:39)
[2019-11-07 13:18] LABS: ARTERIAL BLOOD BASE EXCESS 2.1 mmol/L; ARTERIAL BLOOD H2CO3 0.97 mmol/L (1.05-1.35); ARTERIAL BLOOD HCO3 24.6 mmol/L (20-24); ARTERIAL BLOOD O2 SATURATION 94.3 % (94-98); ARTERIAL BLOOD PCO2 32.1 mmHg (35-45); ARTERIAL BLOOD PO2 63.8 mmHg (80-100); ARTERIAL BLOOD TOTAL CO2 25.6 mmol/L (23-27)
[2019-11-07 13:19] LABS: ARTERIAL BLOOD FIO2 60%
[2019-11-07 13:45] LABS: HEMATOCRIT 39.3 % (37.9-51.0); MEAN CORPUSCULAR HEMOGLOBIN 28.2 pg (27.0-33.4); MEAN CORPUSCULAR HGB CONC 33.3 g/dL (32.0-36.0); MEAN CORPUSCULAR VOLUME 85 fl (80-97); PLATELET COUNT 392 10^3/uL (150-450); RED BLOOD COUNT 4.64 10^6/uL (4.35-5.55); RED CELL DISTRIBUTION WIDTH 14.1 % (11.5-14.0); WHITE BLOOD COUNT 17.1 10^3/uL (4.0-10.5)
[2019-11-07] MEDS: OLANZAPINE 5 MG TAB.RAPDIS PO SCH ×2 (13:54→21:31)
[2019-11-07] MEDS: NICOTINE 21 MG/24 HR PATCH.TD24 TD SCH (13:54)
[2019-11-07] MEDS: AZITHROMYCIN 500 MG in DEXTROSE 5%-WATER 250 ML IV SCH (13:55)
[2019-11-07] MEDS: ZINC SULFATE 220 MG CAPSULE PO SCH (14:01)
[2019-11-07 14:05] LABS: HEMOGLOBIN 13.1 g/dL (13.5-17.0)
[2019-11-07 14:07] LABS: ALKALINE PHOSPHATASE 289 U/L (38-126); ANION GAP 6 (5-19); ASPARTATE AMINO TRANSFERASE 34 U/L (17-59); BILIRUBIN,DIRECT 0.2 mg/dL (0.0-0.4); BILIRUBIN,TOTAL 0.9 mg/dL (0.2-1.3); BLOOD UREA NITROGEN 31 mg/dL (7-20); CALCIUM 8.2 mg/dL (8.4-10.2); CARBON DIOXIDE 28 mmol/L (22-30); CHLORIDE 110 mmol/L (98-107); GLUCOSE 103 mg/dL (75-110); TOTAL PROTEIN 6.1 g/dL (6.3-8.2)
[2019-11-07 14:08] LABS: ABSOLUTE LYMPHOCYTES# (MANUAL) 0.3 10^3/uL (0.5-4.7); ABSOLUTE MONOCYTES # (MANUAL) 0.7 10^3/uL (0.1-1.4); BASOPHILS % (MANUAL) 0 % (0-2); EOSINOPHILS % (MANUAL) 0 % (0-6); LYMPHOCYTES % (MANUAL) 2 % (13-45); MONOCYTES % (MANUAL) 4 % (3-13); SEGMENTED NEUTROPHILS % (MAN) 94 % (42-78); TOTAL CELLS COUNTED 100
[2019-11-07 14:09] LABS: ANISOCYTOSIS SLIGHT; PLATELET COMMENT ADEQUATE; PLATELET LARGE PRESENT
[2019-11-07 14:22] LABS: C-REACTIVE PROTEIN 136.3 mg/L (<10.0)
[2019-11-07] MEDS ORDERED: ZIPRASIDONE MESYLATE INJ/PF 20 MG SDV IM ONE (18:30)
[2019-11-07 19:33] LABS: PHOSPHORUS 3.1 mg/dL (2.5-4.5)
[2019-11-07 19:40] LABS: PREALBUMIN 14.5 mg/dL (17.6-36.0)
--- NOTE | 2019-11-07 19:56 | EKG REPORT ---
SEVERITY:- NORMAL ECG - SINUS RHYTHM : Confirmed by: Jayro Jamil MD 07-Nov-2019 19:55:50
[2019-11-07] MEDS: IPRATROPIUM/ALBUTEROL 0.5-2.5 MG/3 ML AMPUL NEB PRN (20:39)
[2019-11-07] MEDS: AMINO ACIDS 5 %/DEXTROSE 20 % 1,000 ML IV PRN (21:58)
[2019-11-08] MEDS: INSULIN REG, HUMAN 100 UNIT/ML 3 ML VIAL (PYX) SUBCUT SCH ×5 (00:26→23:17)
[2019-11-08] MEDS: ACYCLOVIR SODIUM 700 MG in NORMAL SALINE 100 ML IV SCH ×3 (01:35→18:17)
[2019-11-08] MEDS: DEXMEDETOMIDINE IN 0.9 % NACL 400 MCG/100 ML RTUPB IV PRN ×2 (01:37→12:31)
[2019-11-08] MEDS: ASCORBIC ACID IV SCH ×4 (03:05→21:19)
[2019-11-08] MEDS: WATER IV SCH ×4 (03:05→21:19)
[2019-11-08] MEDS: DEXTROSE 5% IV SCH ×4 (03:05→21:19)
[2019-11-08 03:41] LABS: HEMATOCRIT 38.5 % (37.9-51.0); HEMOGLOBIN 13.1 g/dL (13.5-17.0); MEAN CORPUSCULAR HEMOGLOBIN 28.6 pg (27.0-33.4); MEAN CORPUSCULAR VOLUME 84 fl (80-97); PLATELET COUNT 352 10^3/uL (150-450); RED BLOOD COUNT 4.56 10^6/uL (4.35-5.55); RED CELL DISTRIBUTION WIDTH 13.8 % (11.5-14.0); WHITE BLOOD COUNT 18.6 10^3/uL (4.0-10.5)
[2019-11-08 04:00] LABS: ANION GAP 5 (5-19); BLOOD UREA NITROGEN 26 mg/dL (7-20); CALCIUM 8.2 mg/dL (8.4-10.2); CARBON DIOXIDE 28 mmol/L (22-30); CHLORIDE 108 mmol/L (98-107); GLUCOSE 157 mg/dL (75-110); PHOSPHORUS 2.9 mg/dL (2.5-4.5)
[2019-11-08 04:06] LABS: PREALBUMIN 16.5 mg/dL (17.6-36.0)
[2019-11-08 04:08] LABS: ABSOLUTE LYMPHOCYTES# (MANUAL) 0.4 10^3/uL (0.5-4.7); ABSOLUTE MONOCYTES # (MANUAL) 0.7 10^3/uL (0.1-1.4); BASOPHILS % (MANUAL) 0 % (0-2); EOSINOPHILS % (MANUAL) 0 % (0-6); LYMPHOCYTES % (MANUAL) 2 % (13-45); MONOCYTES % (MANUAL) 4 % (3-13); PLATELET COMMENT ADEQUATE; SEGMENTED NEUTROPHILS % (MAN) 94 % (42-78); TOTAL CELLS COUNTED 100
[2019-11-08 04:09] LABS: HYPOCHROMASIA SLIGHT; OVALOCYTES SLIGHT
[2019-11-08] MEDS: HEPARIN SOD (PORCINE) 5,000 UNIT/ML 1 ML VIAL SUBCUT SCH ×3 (05:45→21:17)
--- NOTE | 2019-11-08 08:40 | RADIOLOGY REPORT (SQ) ---
EXAM DESCRIPTION: CHEST SINGLE VIEW IMAGES COMPLETED DATE/TIME: 11/08/2019 4:44 am REASON FOR STUDY: COVID-19 pneumonia COMPARISON: 11/02/2019 EXAM PARAMETERS: NUMBER OF VIEWS: One view. TECHNIQUE: Single frontal radiographic view of the chest acquired. RADIATION DOSE: NA LIMITATIONS: None. FINDINGS: LUNGS AND PLEURA: No significant interval change in patchy bilateral consolidation, consis tent with multifocal pneumonia. No pleural effusion or pneumothorax. MEDIASTINUM AND HILAR STRUCTURES: No masses. Contour normal. HEART AND VASCULAR STRUCTURES: Heart normal in size. Normal vasculature. BONES: No acute findings. HARDWARE: New left PICC with tip in the mid SVC. OTHER: No other significant finding. IMPRESSION: New left PICC with tip in the mid SVC. No significant interval change in patchy areas o f consolidation, suggestive of multifocal pneumonia. TECHNICAL DOCUMENTATION: JOB ID: [id number] 2010 [employer]- All Rights Reserved Reading location - IP/workstation name: [email or web address]
[2019-11-08] MEDS: NORMAL SALINE 10 ML SDV (SCHEDULED) IV SCH ×2 (09:29→21:17)
--- NOTE | 2019-11-08 10:24 | PDOC CRITICAL CARE PROG REPORT ---
General Date:: 11/07/19 ICU Day:: 5 Hospital Day:: 6 Resuscitation Status: Full Code Events in the past 12 to 24 Hours:: This 59-year-old male smoker presented to [facility] emergency department on 11/02/2019 with complaints of increased dyspnea, nausea, dysgeusia/ageusia. He had COVID-19 testing on 10/27, which was positive. He was at home in isolation but felt that he was clinically deteriorating and presented to the hospital. 11/06: At the time of clinical interview, the patient has recently had his Precedex infusion discontinued due to altered mental status (excessive sedation). He has no known home medications. He has been started on Zyprexa 5 mg p.o. every 12 hours (haloperidol is noted to be on his allergy list). The patient was also started on acyclovir empirically (presumably for possible viral encephalitis) on 11/05 with anecdotal report of overall improvement. He is on BiPAP 14/11, FiO2 60%. During the clinical interview, the patient does start to moan and groan, move all 4 extremities and shift/adjust his position in the bed. He is on dexamethasone 4 mg IV every 8 hours along with vitamin C. Review of systems relevant to events:: Unable to complete a review of system due to confusion and agitation when awakened. Reason for ICU Addmission:: Hypoxemic respiratory failure. Need for bipap. Risk of intubation, COVID positive, alcohol WD. - Medications: Medications reviewed and adjusted accordingly: Yes Vasopressors:: none Physical Exam Vital Signs: Temp Pulse Resp BP Pulse Ox 98.6 F 51 L 25 H 145/83 H 96 11/07/19 10:00 11/06/19 19:36 11/07/19 11:08 11/07/19 09:40 11/07/19 11:08 Intake & Output 11/06/19 11/07/19 11/08/19 06:59 06:59 06:59 Intake Total 985.2 2242.2 80 Output Total 1590 1750 550 Balance -604.8 492.2 -470 Weight 71.9 kg 72 kg Weight/Height Weight 72 kg Height 1.68 m General appearance: PRESENT: no acute distress, well-developed, well-nourished Head exam: PRESENT: atraumatic, normocephalic Eye exam: PRESENT: conjunctiva pink, EOMI, PERRLA. ABSENT: scleral icterus Mouth exam: PRESENT: moist, tongue midline Neck exam: ABSENT: carotid bruit, JVD, lymphadenopathy, thyromegaly Respiratory exam: PRESENT: clear to auscultation alessandra. ABSENT: rales, rhonchi, wheezes Cardiovascular exam: PRESENT: RRR. ABSENT: diastolic murmur, rubs, systolic murmur Pulses: PRESENT: normal dorsalis pedis pul GI/Abdominal exam: PRESENT: normal bowel sounds, soft. ABSENT: distended, guarding, mass, organolmegaly, rebound, tenderness Gentrourinary exam: PRESENT: indwelling catheter Extremities exam: PRESENT: full ROM. ABSENT: calf tenderness, clubbing, pedal edema Neurological exam: PRESENT: altered, reflexes normal, CN II-XII grossly intact. ABSENT: motor sensory deficit Skin exam: PRESENT: dry, intact, warm, other - Venous stasis changes involving the lower extremities. ABSENT: cyanosis Laboratory/Radiographs Laboratory Results: 11/06/19 11/06/19 11/06/19 16:05 16:48 16:48 WBC 9.4 RBC 3.22 L Hgb 9.5 L D Hct 28.3 L MCV 88 MCH 29.4 MCHC 33.5 RDW 14.3 H Plt Count 275 Sodium 146.8 H Cancelled Potassium 4.6 Cancelled Chloride 113 H Cancelled Carbon Dioxide 30 Cancelled Anion Gap 4 L Cancelled BUN 37 H Cancelled Creatinine 0.74 Cancelled Est GFR ( Amer) > 60 Cancelled Est GFR (Non-Af Amer) Cancelled Glucose 155 H Cancelled Calcium 7.6 L Cancelled Phosphorus 3.9 Cancelled Magnesium 2.7 H Cancelled Total Bilirubin 0.8 Cancelled AST 40 Cancelled Alkaline Phosphatase 262 H Cancelled Total Protein 5.4 L Cancelled Albumin 2.6 L Cancelled Prealbumin 10.6 L Cancelled Triglycerides 344 H Cancelled 11/02/19 11:45 Blood Blood Culture - Final NO GROWTH IN 5 DAYS 11/02/19 11:45 Troponin I < 0.012 Impressions: Chest X-Ray 11/02/19 11:39 IMPRESSION: Diffuse bilateral airspace disease consistent with atypical pneumonia or edema. Head CT 11/04/19 00:00 IMPRESSION: No acute intracranial findings. Incidental note is made of scant fluid levels within the sphenoid compartment. EVIDENCE OF ACUTE STROKE: NO. PICC Line Insertion 11/06/19 10:56 IMPRESSION: SUCCESSFUL PLACEMENT OF A 5 FR DUAL LUMEN 45 CM PICC IN THE LEFT BASILIC VEIN. All labs, radiographs, diagnostic studies and EKGs were personally reviewed: Yes In addition, reports of radiographic and diagnostic studies were read: Yes Assessment and Plan - Diagnosis (1) Acute respiratory failure with hypoxia Is this a current diagnosis for this admission?: Yes Plan: Change NIPPV from BiPAP to CPAP. Titrated to CPAP 10 at bedside. Check ABG in 1 hour. Wean CPAP pressure as tolerated. Maintain SPO2 90+ percent. On empiric Rocephin/azithromycin. Stop azithromycin (has received 6 day course). (2) Pneumonia due to COVID-19 virus Is this a current diagnosis for this admission?: Yes Plan: Decrease Decadron to 4 mg IV every 12 hours. On vitamin C and zinc. IL-6, ferritin, D-dimer, LDH and CRP pending. (3) Abnormal EKG Is this a current diagnosis for this admission?: Yes Plan: Repeat EKG. Repeat troponin. (4) Tobacco abuse Is this a current diagnosis for this admission?: Yes Plan: Agree with transdermal nicotine. (5) Delirium Is this a current diagnosis for this admission?: Yes Plan: It is unclear whether or not this is due to alcohol withdrawal. Precedex on hold. In light of COVID-19 pneumonia, avoid respiratory suppression with benzodiazepines. Continue Zyprexa. Trial dose of Geodon 10 mg IM (single dose) today. Critical Time Critical Time (minutes): 60 Level of Care: ICU -: 1. The care of a critical patient is a dynamic process. This note is a security representative synopsis but static in nature. The timeframe for treatments given in order is not necessarily the actual time these treatments may have been done. 2. This patient requires critical care secondary to ongoing requirements for therapy not offered or safe outside the critical care environment. Transfer to a lower level of care will result in altered life or limb morbidity and mortality. 3. Multidisciplinary rounds completed. 4. ABCDE bundle addressed.
[2019-11-08] MEDS: NICOTINE 21 MG/24 HR PATCH.TD24 TD SCH (11:06)
[2019-11-08] MEDS: OLANZAPINE 5 MG TAB.RAPDIS PO SCH ×2 (11:07→21:21)
[2019-11-08] MEDS: DEXAMETHASONE SOD PHOSPHATE INJ 4 MG/1 ML VIAL IV SCH ×2 (11:07→21:21)
[2019-11-08] MEDS: ZINC SULFATE 220 MG CAPSULE PO SCH (11:07)
[2019-11-08] MEDS: THIAMINE HCL 100 MG, FOLIC ACID 1 MG in NORMAL SALINE 250 ML IV SCH (11:28)
[2019-11-08] MEDS: CEFTRIAXONE 1 GM/D5W RTU 1 GM/50 ML RTUPB IV SCH (12:48)
--- NOTE | 2019-11-08 18:08 | PDOC CRITICAL CARE PROG REPORT ---
General Date:: 11/08/19 ICU Day:: 6 Hospital Day:: 7 Resuscitation Status: Full Code Events in the past 12 to 24 Hours:: This 59-year-old male smoker presented to [facility] emergency department on 11/02/2019 with complaints of increased dyspnea, nausea, dysgeusia/ageusia. He had COVID-19 testing on 10/27, which was positive. He was at home in isolation but felt that he was clinically deteriorating and presented to the hospital. 11/06: At the time of clinical interview, the patient has recently had his Precedex infusion discontinued due to altered mental status (excessive sedation). He has no known home medications. He has been started on Zyprexa 5 mg p.o. every 12 hours (haloperidol is noted to be on his allergy list). The patient was also started on acyclovir empirically (presumably for possible viral encephalitis) on 11/05 with anecdotal report of overall improvement. He is on BiPAP 14/11, FiO2 60%. During the clinical interview, the patient does start to moan and groan, move all 4 extremities and shift/adjust his position in the bed. He is on dexamethasone 4 mg IV every 8 hours along with vitamin C. 11/07: Now on high flow cannula (100% FiO2, 40 LPM). Respiratory rate in the 20s. SPO2 90-93%. Mentating well. Tearful. Frustrated. Denies pain. Complains about soft restraints. Yesterday, the patient required physical restraint due to uncooperative behavior (getting out of bed with CPAP mask on), resulting in interruption of IV administrations and disconnection of CPAP/BiPAP circuit. Ferritin 1780. D-dimer 12.58. LDH 752. Review of systems relevant to events:: Unable to complete a review of system due to confusion and agitation when awakened. Reason for ICU Addmission:: Hypoxemic respiratory failure. Need for bipap. Risk of intubation, COVID positive, alcohol WD. - Medications: Medications reviewed and adjusted accordingly: Yes Physical Exam Vital Signs: Temp Pulse Resp BP Pulse Ox 100.4 F 75 36 H 129/82 H 91 L 11/08/19 11:00 11/08/19 07:33 11/08/19 11:00 11/08/19 10:41 11/08/19 11:00 Intake & Output 11/07/19 11/08/19 11/09/19 06:59 06:59 06:59 Intake Total 2242.2 945 Output Total 1750 2240 510 Balance 492.2 -7454 -818 Weight 72 kg 71.5 kg Weight/Height Weight 71.5 kg Height 1.68 m General appearance: PRESENT: no acute distress, well-developed, well-nourished Head exam: PRESENT: atraumatic, normocephalic Eye exam: PRESENT: conjunctiva pink, EOMI, PERRLA. ABSENT: scleral icterus Mouth exam: PRESENT: dry mucosa, tongue midline Neck exam: ABSENT: carotid bruit, JVD, lymphadenopathy, thyromegaly Respiratory exam: PRESENT: clear to auscultation alessandra, unlabored. ABSENT: rales, rhonchi, wheezes Cardiovascular exam: PRESENT: RRR. ABSENT: diastolic murmur, rubs, systolic murmur Pulses: PRESENT: normal dorsalis pedis pul GI/Abdominal exam: PRESENT: normal bowel sounds, soft. ABSENT: distended, guarding, mass, organolmegaly, rebound, tenderness Gentrourinary exam: PRESENT: indwelling catheter Extremities exam: PRESENT: full ROM. ABSENT: calf tenderness, clubbing, pedal edema Musculoskeletal exam: PRESENT: normal inspection. ABSENT: deformity Neurological exam: PRESENT: alert, awake, oriented to person, oriented to place, oriented to time, oriented to situation, CN II-XII grossly intact. ABSENT: motor sensory deficit Psychiatric exam: PRESENT: anxious Skin exam: PRESENT: dry, intact, warm. ABSENT: cyanosis, rash Laboratory/Radiographs Laboratory Results: 11/08/19 03:12 11/08/19 03:12 11/07/19 11/07/19 11/07/19 11:17 11:17 11:17 WBC Cancelled RBC Cancelled Hgb Cancelled Hct Cancelled MCV Cancelled MCH Cancelled MCHC Cancelled RDW Cancelled Plt Count Cancelled Seg Neutrophils % Cancelled Carbonic Acid HCO3/H2CO3 Ratio ABG pH ABG pCO2 ABG pO2 ABG HCO3 ABG O2 Saturation ABG Base Excess FiO2 Sodium Cancelled Potassium Cancelled Chloride Cancelled Carbon Dioxide Cancelled Anion Gap Cancelled BUN Cancelled Creatinine Cancelled Est GFR ( Amer) Cancelled Est GFR (Non-Af Amer) Cancelled Glucose Cancelled Calcium Cancelled Phosphorus Magnesium Cancelled Cancelled Ferritin Cancelled Total Bilirubin Cancelled AST Cancelled Alkaline Phosphatase Cancelled C-Reactive Protein Cancelled Total Protein Cancelled Albumin Cancelled Prealbumin Triglycerides 307 H 11/07/19 11/07/19 11/07/19 13:00 13:20 13:20 WBC 17.1 H RBC 4.64 Hgb 13.1 L D Hct 39.3 MCV 85 MCH 28.2 MCHC 33.3 RDW 14.1 H Plt Count 392 Seg Neutrophils % Not Reportable Carbonic Acid 0.97 L HCO3/H2CO3 Ratio 25:1 ABG pH 7.50 H ABG pCO2 32.1 L ABG pO2 63.8 L ABG HCO3 24.6 H ABG O2 Saturation 94.3 ABG Base Excess 2.1 FiO2 60% Sodium 144.0 Potassium 4.0 Chloride 110 H Carbon Dioxide 28 Anion Gap 6 BUN 31 H Creatinine 0.64 Est GFR ( Amer) > 60 Est GFR (Non-Af Amer) Glucose 103 Calcium 8.2 L Phosphorus Magnesium 2.5 H Ferritin 1780.00 H Total Bilirubin 0.9 AST 34 Alkaline Phosphatase 289 H C-Reactive Protein 136.3 H Total Protein 6.1 L Albumin 3.0 L Prealbumin Triglycerides 11/07/19 11/08/19 11/08/19 13:20 03:12 03:12 WBC 18.6 H RBC 4.56 Hgb 13.1 L Hct 38.5 MCV 84 MCH 28.6 MCHC 34.0 RDW 13.8 Plt Count 352 Seg Neutrophils % Not Reportable Carbonic Acid HCO3/H2CO3 Ratio ABG pH ABG pCO2 ABG pO2 ABG HCO3 ABG O2 Saturation ABG Base Excess FiO2 Sodium 141.2 Potassium 4.0 Chloride 108 H Carbon Dioxide 28 Anion Gap 5 BUN 26 H Creatinine 0.59 Est GFR ( Amer) > 60 Est GFR (Non-Af Amer) Glucose 157 H Calcium 8.2 L Phosphorus 3.1 2.9 Magnesium 2.4 H Ferritin Total Bilirubin AST Alkaline Phosphatase C-Reactive Protein Total Protein Albumin Prealbumin 14.5 L 16.5 L Triglycerides 11/02/19 15:15 Blood Blood Culture - Final NO GROWTH IN 5 DAYS 11/02/19 11:45 Blood Blood Culture - Final NO GROWTH IN 5 DAYS 11/02/19 11/07/19 11/08/19 11:45 13:20 03:12 Troponin I < 0.012 < 0.012 NT-Pro-B Natriuret Pep 175 H Impressions: Head CT 11/04/19 00:00 IMPRESSION: No acute intracranial findings. Incidental note is made of scant fluid levels within the sphenoid compartment. EVIDENCE OF ACUTE STROKE: NO. PICC Line Insertion 11/06/19 10:56 IMPRESSION: SUCCESSFUL PLACEMENT OF A 5 FR DUAL LUMEN 45 CM PICC IN THE LEFT BASILIC VEIN. Chest X-Ray 11/08/19 05:00 IMPRESSION: New left PICC with tip in the mid SVC. No significant interval change in patchy areas of consolidation, suggestive of multifocal pneumonia. All labs, radiographs, diagnostic studies and EKGs were personally reviewed: Yes In addition, reports of radiographic and diagnostic studies were read: Yes Assessment and Plan - Diagnosis (1) Acute respiratory failure with hypoxia Is this a current diagnosis for this admission?: Yes Plan: To new high flow nasal cannula. Maintain FiO2 100%. Wean flow rate, as tolerated to keep SPO2 90+%. On empiric Rocephin. Completed azithromycin (has received 6 day course). (2) Pneumonia due to COVID-19 virus Is this a current diagnosis for this admission?: Yes Plan: Decrease Decadron to 3 mg IV every 12 hours. (10 day course). On vitamin C and zinc. IL-6 pending. (3) Delirium Is this a current diagnosis for this admission?: Yes Plan: Precedex on hold. In light of COVID-19 pneumonia, avoid respiratory suppression with benzodiazepines. Haldol "allergy" noted. Continue Zyprexa. (4) Abnormal EKG Is this a current diagnosis for this admission?: Yes Plan: Repeat EKG shows interval improvement in diffuse ST-T wave changes. Repeat troponin was undetectable. (5) Tobacco abuse Is this a current diagnosis for this admission?: Yes Critical Time Critical Time (minutes): 60 Level of Care: ICU -: 1. The care of a critical patient is a dynamic process. This note is a chemical sales representative synopsis but static in nature. The timeframe for treatments given in order is not necessarily the actual time these treatments may have been done. 2. This patient requires critical care secondary to ongoing requirements for therapy not offered or safe outside the critical care environment. Transfer to a lower level of care will result in altered life or limb morbidity and mortality. 3. Multidisciplinary rounds completed. 4. ABCDE bundle addressed.
[2019-11-08] MEDS: AMINO ACIDS 5 %/DEXTROSE 20 % 1,000 ML IV PRN (21:21)
[2019-11-09] MEDS: ACYCLOVIR SODIUM 700 MG in NORMAL SALINE 100 ML IV SCH ×3 (02:20→18:50)
[2019-11-09] MEDS: ASCORBIC ACID 500 MG TABLET PO SCH ×4 (02:44→22:27)
[2019-11-09] MEDS: HEPARIN SOD (PORCINE) 5,000 UNIT/ML 1 ML VIAL SUBCUT SCH ×3 (05:39→22:28)
[2019-11-09] MEDS: INSULIN REG, HUMAN 100 UNIT/ML 3 ML VIAL (PYX) SUBCUT SCH ×3 (05:39→18:49)
[2019-11-09 06:18] LABS: ARTERIAL BLOOD BASE EXCESS 0 mmol/L; ARTERIAL BLOOD H2CO3 0.83 mmol/L (1.05-1.35); ARTERIAL BLOOD HCO3 21.6 mmol/L (20-24); ARTERIAL BLOOD O2 SATURATION 90.4 % (94-98); ARTERIAL BLOOD PCO2 27.7 mmHg (35-45); ARTERIAL BLOOD PH 7.51 (7.35-7.45); ARTERIAL BLOOD PO2 51.7 mmHg (80-100); ARTERIAL BLOOD TOTAL CO2 22.5 mmol/L (23-27)
[2019-11-09 06:27] LABS: ARTERIAL BLOOD FIO2 40L
[2019-11-09 08:35] LABS: HEMATOCRIT 44.2 % (37.9-51.0); MEAN CORPUSCULAR HEMOGLOBIN 28.9 pg (27.0-33.4); MEAN CORPUSCULAR HGB CONC 33.8 g/dL (32.0-36.0); MEAN CORPUSCULAR VOLUME 86 fl (80-97); PLATELET COUNT 320 10^3/uL (150-450); RED BLOOD COUNT 5.16 10^6/uL (4.35-5.55); RED CELL DISTRIBUTION WIDTH 14.2 % (11.5-14.0); WHITE BLOOD COUNT 20.4 10^3/uL (4.0-10.5)
[2019-11-09 08:36] LABS: INTERNATIONAL RATION (INR) 0.94; PROTHROMBIN TIME 12.8 SEC (11.4-15.4)
[2019-11-09 08:51] LABS: ANION GAP 8 (5-19); BLOOD UREA NITROGEN 24 mg/dL (7-20); CALCIUM 8.5 mg/dL (8.4-10.2); CARBON DIOXIDE 24 mmol/L (22-30); CHLORIDE 107 mmol/L (98-107); GLUCOSE 143 mg/dL (75-110); PHOSPHORUS 3.3 mg/dL (2.5-4.5); POTASSIUM 4.6 mmol/L (3.6-5.0)
[2019-11-09 08:54] LABS: HEMOGLOBIN 14.9 g/dL (13.5-17.0)
[2019-11-09] MEDS: NICOTINE 21 MG/24 HR PATCH.TD24 TD SCH (09:50)
[2019-11-09] MEDS: DEXAMETHASONE SOD PHOSPHATE INJ 4 MG/1 ML VIAL IV SCH ×2 (09:51→22:28)
[2019-11-09] MEDS: ZINC SULFATE 220 MG CAPSULE PO SCH (09:52)
[2019-11-09] MEDS: CEFTRIAXONE 1 GM/D5W RTU 1 GM/50 ML RTUPB IV SCH (09:53)
[2019-11-09] MEDS: NORMAL SALINE 10 ML SDV (SCHEDULED) IV SCH ×2 (09:55→22:29)
[2019-11-09] MEDS ORDERED: FAT EMULSIONS 250 ML IV SCH (10:00)
[2019-11-09] MEDS: OLANZAPINE 5 MG TAB.RAPDIS PO SCH (10:51)
[2019-11-09] MEDS: THIAMINE HCL 100 MG, FOLIC ACID 1 MG in NORMAL SALINE 250 ML IV SCH (11:36)
[2019-11-09 12:51] LABS: HEMATOCRIT 41.1 % (37.9-51.0); HEMOGLOBIN 13.7 g/dL (13.5-17.0); MEAN CORPUSCULAR HEMOGLOBIN 28.4 pg (27.0-33.4); MEAN CORPUSCULAR HGB CONC 33.5 g/dL (32.0-36.0); MEAN CORPUSCULAR VOLUME 85 fl (80-97); RED BLOOD COUNT 4.83 10^6/uL (4.35-5.55); RED CELL DISTRIBUTION WIDTH 14.1 % (11.5-14.0); WHITE BLOOD COUNT 27.7 10^3/uL (4.0-10.5)
[2019-11-09 13:28] LABS: PLATELET COUNT 369 10^3/uL (150-450)
[2019-11-09] MEDS ORDERED: MORPHINE SULFATE 10 MG/ML INJ IV PRN (13:38)
--- NOTE | 2019-11-09 18:23 | PDOC CRITICAL CARE PROG REPORT ---
General Date:: 11/09/19 ICU Day:: 7 Hospital Day:: 8 Resuscitation Status: Full Code Events in the past 12 to 24 Hours:: This 59-year-old male smoker presented to [facility] emergency department on 11/02/2019 with complaints of increased dyspnea, nausea, dysgeusia/ageusia. He had COVID-19 testing on 10/27, which was positive. He was at home in isolation but felt that he was clinically deteriorating and presented to the hospital. 11/06: At the time of clinical interview, the patient has recently had his Precedex infusion discontinued due to altered mental status (excessive sedation). He has no known home medications. He has been started on Zyprexa 5 mg p.o. every 12 hours (haloperidol is noted to be on his allergy list). The patient was also started on acyclovir empirically (presumably for possible viral encephalitis) on 11/05 with anecdotal report of overall improvement. He is on BiPAP 14/11, FiO2 60%. During the clinical interview, the patient does start to moan and groan, move all 4 extremities and shift/adjust his position in the bed. He is on dexamethasone 4 mg IV every 8 hours along with vitamin C. 11/07: Now on high flow cannula (100% FiO2, 40 LPM). Respiratory rate in the 20s. SPO2 90-93%. Mentating well. Tearful. Frustrated. Denies pain. Complains about soft restraints. Yesterday, the patient required physical restraint due to uncooperative behavior (getting out of bed with CPAP mask on), resulting in interruption of IV administrations and disconnection of CPAP/BiPAP circuit. Ferritin 1780. D-dimer 12.58. LDH 752. 11/08: Has remained on high flow nasal cannula, tolerating it well. 100% FiO2, 30 LPM. Respiratory rate 20s to 30s. Mentating well. Review of systems relevant to events:: Unable to complete a review of system due to confusion and agitation when awakened. Reason for ICU Addmission:: Hypoxemic respiratory failure. Need for bipap. Risk of intubation, COVID positive, alcohol WD. - Medications: Medications reviewed and adjusted accordingly: Yes Physical Exam Vital Signs: Temp Pulse Resp BP Pulse Ox 38.6 F L 102 H 41 H 163/90 H 93 11/09/19 13:10 11/09/19 08:00 11/09/19 11:00 11/09/19 10:41 11/09/19 12:48 Intake & Output 11/08/19 11/09/19 11/10/19 06:59 06:59 06:59 Intake Total 995 413 114 Output Total 2240 1940 1025 Balance -1245 -1527 -911 Weight 71.5 kg 71.7 kg Weight/Height Weight 71.7 kg Height 1.68 m General appearance: PRESENT: no acute distress, well-developed, well-nourished Head exam: PRESENT: atraumatic, normocephalic Eye exam: PRESENT: conjunctiva pink, EOMI, PERRLA. ABSENT: scleral icterus Ear exam: PRESENT: normal external ear exam Mouth exam: PRESENT: moist, tongue midline Neck exam: ABSENT: carotid bruit, JVD, lymphadenopathy, thyromegaly Respiratory exam: PRESENT: crackles. ABSENT: rales, rhonchi, wheezes Cardiovascular exam: PRESENT: RRR, tachycardia. ABSENT: diastolic murmur, rubs, systolic murmur Pulses: PRESENT: normal dorsalis pedis pul GI/Abdominal exam: PRESENT: normal bowel sounds, soft. ABSENT: distended, guarding, mass, organolmegaly, rebound, tenderness Extremities exam: PRESENT: full ROM. ABSENT: calf tenderness, clubbing, pedal edema Musculoskeletal exam: PRESENT: normal inspection. ABSENT: deformity Neurological exam: PRESENT: alert, awake, oriented to person, oriented to place, oriented to time, oriented to situation, CN II-XII grossly intact. ABSENT: motor sensory deficit Psychiatric exam: PRESENT: anxious, appropriate affect. ABSENT: agitated Skin exam: PRESENT: dry, intact, warm. ABSENT: cyanosis, rash Laboratory/Radiographs Laboratory Results: 11/09/19 12:28 11/09/19 08:03 11/07/19 11/09/19 11/09/19 11:17 06:05 06:05 WBC Cancelled RBC Cancelled Hgb Cancelled Hct Cancelled MCV Cancelled MCH Cancelled MCHC Cancelled RDW Cancelled Plt Count Cancelled Seg Neutrophils % Cancelled Carbonic Acid 0.83 L HCO3/H2CO3 Ratio 26:1 ABG pH 7.51 H ABG pCO2 27.7 L ABG pO2 51.7 L ABG HCO3 21.6 ABG O2 Saturation 90.4 L ABG Base Excess 0 FiO2 40L Sodium Cancelled Potassium Cancelled Chloride Cancelled Carbon Dioxide Cancelled Anion Gap Cancelled BUN Cancelled Creatinine Cancelled Est GFR ( Amer) Cancelled Est GFR (Non-Af Amer) Cancelled Glucose Cancelled Calcium Cancelled Phosphorus Cancelled Magnesium Cancelled Prealbumin Cancelled Triglycerides 11/09/19 11/09/19 11/09/19 06:05 08:03 08:03 WBC Cancelled 20.4 H RBC Cancelled 5.16 Hgb Cancelled 14.9 Hct Cancelled 44.2 MCV Cancelled 86 MCH Cancelled 28.9 MCHC Cancelled 33.8 RDW Cancelled 14.2 H Plt Count Cancelled 320 Seg Neutrophils % Carbonic Acid HCO3/H2CO3 Ratio ABG pH ABG pCO2 ABG pO2 ABG HCO3 ABG O2 Saturation ABG Base Excess FiO2 Sodium 139.3 Potassium 4.6 Chloride 107 Carbon Dioxide 24 Anion Gap 8 BUN 24 H Creatinine 0.62 Est GFR ( Amer) > 60 Est GFR (Non-Af Amer) Glucose 143 H Calcium 8.5 Phosphorus 3.3 Magnesium 2.7 H Prealbumin 22.0 Triglycerides 11/09/19 11/09/19 12:28 12:28 WBC 27.7 H RBC 4.83 Hgb 13.7 Hct 41.1 MCV 85 MCH 28.4 MCHC 33.5 RDW 14.1 H Plt Count 369 Seg Neutrophils % Carbonic Acid HCO3/H2CO3 Ratio ABG pH ABG pCO2 ABG pO2 ABG HCO3 ABG O2 Saturation ABG Base Excess FiO2 Sodium Potassium Chloride Carbon Dioxide Anion Gap BUN Creatinine Est GFR ( Amer) Est GFR (Non-Af Amer) Glucose Calcium Phosphorus Magnesium Prealbumin Triglycerides 275 H 11/02/19 11/07/19 11/08/19 11:45 13:20 03:12 Troponin I < 0.012 < 0.012 NT-Pro-B Natriuret Pep 175 H Impressions: Head CT 11/04/19 00:00 IMPRESSION: No acute intracranial findings. Incidental note is made of scant fluid levels within the sphenoid compartment. EVIDENCE OF ACUTE STROKE: NO. PICC Line Insertion 11/06/19 10:56 IMPRESSION: SUCCESSFUL PLACEMENT OF A 5 FR DUAL LUMEN 45 CM PICC IN THE LEFT BASILIC VEIN. Chest X-Ray 11/08/19 05:00 IMPRESSION: New left PICC with tip in the mid SVC. No significant interval change in patchy areas of consolidation, suggestive of multifocal pneumonia. All labs, radiographs, diagnostic studies and EKGs were personally reviewed: Yes In addition, reports of radiographic and diagnostic studies were read: Yes Assessment and Plan - Diagnosis (1) Acute respiratory failure with hypoxia Is this a current diagnosis for this admission?: Yes Plan: To new high flow nasal cannula. Maintain FiO2 100%. Wean flow rate, as kevin ated to keep SPO2 90+%. On empiric Rocephin. Completed azithromycin (has received 6 day course). (2) Pneumonia due to COVID-19 virus Is this a current diagnosis for this admission?: Yes Plan: Decrease Decadron to 3 mg IV every 12 hours. (10 day course). On vitamin C and zinc. IL-6 pending. (3) Delirium Is this a current diagnosis for this admission?: Yes Plan: Precedex on hold. In light of COVID-19 pneumonia, avoid respiratory suppression with benzodiazep mildred. Haldol "allergy" noted. Stop Zyprexa. Home medications are noted to include hydrocodone. (4) Abnormal EKG Is this a current diagnosis for this admission?: Yes (5) Tobacco abuse Is this a current diagnosis for this admission?: Yes Plan: Agree with transdermal nicotine. Decrease nicotine transdermal to 14 mg/day. Critical Time Critical Time (minutes): 60 Level of Care: ICU -: 1. The care of a critical patient is a dynamic process. This note is a premium representative synopsis but static in nature. The timeframe for treatments given in order is not necessarily the actual time these treatments may have been done. 2. This patient requires critical care secondary to ongoing requirements for therapy not offered or safe outside the critical care environment. Transfer to a lower level of care will result in altered life or limb morbidity and mortality. 3. Multidisciplinary rounds completed. 4. ABCDE bundle addressed.
[2019-11-09] MEDS ORDERED: PHENOL/SODIUM PHENOLATE 100 SPRAY/177 ML BOTTLE PO PRN (23:43)
[2019-11-10] MEDS: INSULIN REG, HUMAN 100 UNIT/ML 3 ML VIAL (PYX) SUBCUT SCH ×4 (00:45→18:47)
[2019-11-10] MEDS: ACYCLOVIR SODIUM 700 MG in NORMAL SALINE 100 ML IV SCH (02:00)
[2019-11-10] MEDS: ASCORBIC ACID 500 MG TABLET PO SCH ×4 (03:24→21:13)
[2019-11-10 03:52] LABS: HEMATOCRIT 39.4 % (37.9-51.0); HEMOGLOBIN 13.3 g/dL (13.5-17.0); MEAN CORPUSCULAR HEMOGLOBIN 28.7 pg (27.0-33.4); MEAN CORPUSCULAR HGB CONC 33.8 g/dL (32.0-36.0); MEAN CORPUSCULAR VOLUME 85 fl (80-97); PLATELET COUNT 372 10^3/uL (150-450); RED BLOOD COUNT 4.65 10^6/uL (4.35-5.55); RED CELL DISTRIBUTION WIDTH 13.7 % (11.5-14.0); WHITE BLOOD COUNT 26.1 10^3/uL (4.0-10.5)
[2019-11-10 05:03] LABS: ANION GAP 7 (5-19); BLOOD UREA NITROGEN 26 mg/dL (7-20); CALCIUM 8.3 mg/dL (8.4-10.2); CARBON DIOXIDE 27 mmol/L (22-30); CHLORIDE 104 mmol/L (98-107); GLUCOSE 124 mg/dL (75-110); PHOSPHORUS 4.1 mg/dL (2.5-4.5); POTASSIUM 4.6 mmol/L (3.6-5.0)
[2019-11-10] MEDS: HEPARIN SOD (PORCINE) 5,000 UNIT/ML 1 ML VIAL SUBCUT SCH ×3 (06:24→21:13)
[2019-11-10] MEDS ORDERED: FUROSEMIDE INJ/PF 40 MG/4 ML SDV IV ONE (08:05)
[2019-11-10] MEDS ORDERED: NICOTINE 7 MG/24 HR PATCH.TD24 TD SCH (10:00)
--- NOTE | 2019-11-10 10:07 | RADIOLOGY REPORT (SQ) ---
EXAM DESCRIPTION: CHEST SINGLE VIEW IMAGES COMPLETED DATE/TIME: 11/10/2019 9:34 am REASON FOR STUDY: COVID pneumonia COMPARISON: 11/08/2019. EXAM PARAMETERS: NUMBER OF VIEWS: One view. TECHNIQUE: Single frontal radiographic view of the chest acquired. RADIATION DOSE: NA LIMITATIONS: None. FINDINGS: LUNGS AND PLEURA: Diffuse bilateral airspace disease, unchanged. MEDIASTINUM AND HILAR STRUCTURES: No masses. Contour normal. HEART AND VASCULAR STRUCTURES: Stable cardiomegaly. BONES: No acute findings. HARDWARE: PICC line. OTHER: No other significant finding. IMPRESSION: NO SIGNIFICANT CHANGE IN APPEARANCE OF THE CHEST. TECHNICAL DOCUMENTATION: JOB ID: [id number]- All Rights Reserved Reading location - IP/workstation name: [email or web address]
[2019-11-10] MEDS: NICOTINE 14 MG/24 HR PATCH.TD24 TD SCH (10:45)
[2019-11-10] MEDS: THIAMINE HCL 100 MG TABLET PO SCH (11:39)
[2019-11-10] MEDS: ZINC SULFATE 220 MG CAPSULE PO SCH (11:39)
[2019-11-10] MEDS: DEXAMETHASONE SOD PHOSPHATE INJ 4 MG/1 ML VIAL IV SCH ×2 (11:39→21:13)
[2019-11-10] MEDS: FOLIC ACID 1 MG TABLET PO SCH (11:39)
[2019-11-10] MEDS: NORMAL SALINE 10 ML SDV (SCHEDULED) IV SCH ×2 (11:40→21:14)
[2019-11-10] MEDS: FAMOTIDINE 20 MG TABLET PO SCH ×2 (15:21→21:13)
--- NOTE | 2019-11-10 20:41 | PDOC CRITICAL CARE PROG REPORT ---
General Date:: 11/10/19 ICU Day:: 8 Hospital Day:: 9 Resuscitation Status: Full Code Events in the past 12 to 24 Hours:: This 59-year-old male smoker presented to [facility] emergency department on 11/02/2019 with complaints of increased dyspnea, nausea, dysgeusia/ageusia. He had COVID-19 testing on 10/27, which was positive. He was at home in isolation but felt that he was clinically deteriorating and presented to the hospital. 11/06: At the time of clinical interview, the patient has recently had his Precedex infusion discontinued due to altered mental status (excessive sedation). He has no known home medications. He has been started on Zyprexa 5 mg p.o. every 12 hours (haloperidol is noted to be on his allergy list). The patient was also started on acyclovir empirically (presumably for possible viral encephalitis) on 11/05 with anecdotal report of overall improvement. He is on BiPAP 14/11, FiO2 60%. During the clinical interview, the patient does start to moan and groan, move all 4 extremities and shift/adjust his position in the bed. He is on dexamethasone 4 mg IV every 8 hours along with vitamin C. 11/07: Now on high flow cannula (100% FiO2, 40 LPM). Respiratory rate in the 20s. SPO2 90-93%. Mentating well. Tearful. Frustrated. Denies pain. Complains about soft restraints. Yesterday, the patient required physical restraint due to uncooperative behavior (getting out of bed with CPAP mask on), resulting in interruption of IV administrations and disconnection of CPAP/BiPAP circuit. Ferritin 1780. D-dimer 12.58. LDH 752. 11/08: Has remained on high flow nasal cannula, tolerating it well. 100% FiO2, 30 LPM. Respiratory rate 20s to 30s. Mentating well. 11/09: On high flow nasal cannula, 100% FiO2, 25 LPM. Mentating well. Review of systems relevant to events:: Respiratory: COVID-19 pneumonia Neurologic: Delirium Reason for ICU Addmission:: Hypoxemic respiratory failure secondary to COVID-19 pneumonia - Medications: Medications reviewed and adjusted accordingly: Yes Physical Exam Vital Signs: Temp Pulse Resp BP Pulse Ox 98.6 F 110 H 33 H 136/76 H 94 11/10/19 11:42 08/11/20 10:00 11/10/19 12:50 11/10/19 11:42 11/10/19 12:50 Intake & Output 11/09/19 11/10/19 11/11/19 06:59 06:59 06:59 Intake Total 413 342 240 Output Total 3310 2163 100 Balance -1527 -1823 140 Weight 71.7 kg 71.7 kg Weight/Height Weight 71.7 kg Height 1.68 m General appearance: PRESENT: no acute distress, well-developed, well-nourished Head exam: PRESENT: atraumatic, normocephalic Eye exam: PRESENT: conjunctiva pink, EOMI, PERRLA. ABSENT: scleral icterus Mouth exam: PRESENT: moist, tongue midline Neck exam: ABSENT: carotid bruit, JVD, lymphadenopathy, thyromegaly Respiratory exam: PRESENT: crackles, tachypnea, unlabored. ABSENT: rales, rhonchi Cardiovascular exam: PRESENT: RRR. ABSENT: diastolic murmur, rubs, systolic murmur Pulses: PRESENT: normal dorsalis pedis pul GI/Abdominal exam: PRESENT: normal bowel sounds, soft. ABSENT: distended, guarding, mass, organolmegaly, rebound, tenderness Extremities exam: PRESENT: full ROM. ABSENT: calf tenderness, clubbing, pedal edema Musculoskeletal exam: PRESENT: normal inspection. ABSENT: deformity Neurological exam: PRESENT: alert, awake, oriented to person, oriented to place, oriented to time, oriented to situation, CN II-XII grossly intact. ABSENT: motor sensory deficit Psychiatric exam: ABSENT: agitated, anxious Skin exam: PRESENT: dry, intact, warm. ABSENT: cyanosis, rash Laboratory/Radiographs Laboratory Results: 11/10/19 03:35 11/10/19 03:35 11/10/19 11/10/19 11/10/19 03:35 03:35 03:35 WBC 26.1 H RBC 4.65 Hgb 13.3 L Hct 39.4 MCV 85 MCH 28.7 MCHC 33.8 RDW 13.7 Plt Count 372 Sodium 137.7 Potassium 4.6 Chloride 104 Carbon Dioxide 27 Anion Gap 7 BUN 26 H Creatinine 0.72 Est GFR ( Amer) > 60 Glucose 124 H Calcium 8.3 L Phosphorus 4.1 Magnesium 2.3 Prealbumin 20.3 08/03/20 08/08/20 08/09/20 11:45 13:20 03:12 Troponin I < 0.012 < 0.012 NT-Pro-B Natriuret Pep 175 H Impressions: Head CT 11/04/19 00:00 IMPRESSION: No acute intracranial findings. Incidental note is made of scant fluid levels within the sphenoid compartment. EVIDENCE OF ACUTE STROKE: NO. PICC Line Insertion 11/06/19 10:56 IMPRESSION: SUCCESSFUL PLACEMENT OF A 5 FR DUAL LUMEN 45 CM PICC IN THE LEFT BASILIC VEIN. Chest X-Ray 11/10/19 00:00 IMPRESSION: NO SIGNIFICANT CHANGE IN APPEARANCE OF THE CHEST. All labs, radiographs, diagnostic studies and EKGs were personally reviewed: Yes In addition, reports of radiographic and diagnostic studies were read: Yes Assessment and Plan - Diagnosis (1) Acute respiratory failure with hypoxia Is this a current diagnosis for this admission?: Yes Plan: Maintain FiO2 100%. Wean flow rate, as tolerated to keep SPO2 90+%. On empiric Rocephin. Completed azithromycin (has received 6 day course). (2) Pneumonia due to COVID-19 virus Is this a current diagnosis for this admission?: Yes Plan: Decrease Decadron to 3 mg IV every 12 hours. (10 day course. Stop date 11/11/2019). He may need a rapid taper after completion of the 10-day course. WBC count rising, likely secondary to steroids. On vitamin C and zinc. IL-6 sample submitted but was reported to be insufficient for analysis. (3) Delirium Is this a current diagnosis for this admission?: Yes Plan: Resolved. Will parse medications on the MAR to avoid any sedative/hypnotic or narcotic medications. (4) Abnormal EKG Is this a current diagnosis for this admission?: Yes (5) Tobacco abuse Is this a current diagnosis for this admission?: Yes Plan Summary: OK to transfer to [facility] from pulmonary/critical care standpoint. Critical Time Critical Time (minutes): 45 Level of Care: ICU -: 1. The care of a critical patient is a dynamic process. This note is a entry level sales representative synopsis but static in nature. The timeframe for treatments given in order is not necessarily the actual time these treatments may have been done. 2. This patient requires critical care secondary to ongoing requirements for therapy not offered or safe outside the critical care environment. Transfer to a lower level of care will result in altered life or limb morbidity and mortality. 3. Multidisciplinary rounds completed. 4. ABCDE bundle addressed.
[2019-11-11] MEDS: INSULIN REG, HUMAN 100 UNIT/ML 3 ML VIAL (PYX) SUBCUT SCH ×3 (00:07→11:10)
[2019-11-11] MEDS: ASCORBIC ACID 500 MG TABLET PO SCH ×4 (03:43→20:43)
[2019-11-11] MEDS: HEPARIN SOD (PORCINE) 5,000 UNIT/ML 1 ML VIAL SUBCUT SCH ×3 (05:54→22:16)
[2019-11-11 06:44] LABS: HEMATOCRIT 38.3 % (37.9-51.0); HEMOGLOBIN 12.9 g/dL (13.5-17.0); MEAN CORPUSCULAR HGB CONC 33.7 g/dL (32.0-36.0); MEAN CORPUSCULAR VOLUME 86 fl (80-97); PLATELET COUNT 457 10^3/uL (150-450); RED BLOOD COUNT 4.45 10^6/uL (4.35-5.55); RED CELL DISTRIBUTION WIDTH 13.9 % (11.5-14.0)
[2019-11-11 07:06] LABS: ANION GAP 6 (5-19); BLOOD UREA NITROGEN 28 mg/dL (7-20); CALCIUM 8.4 mg/dL (8.4-10.2); CARBON DIOXIDE 28 mmol/L (22-30); CHLORIDE 102 mmol/L (98-107); GLUCOSE 111 mg/dL (75-110); PHOSPHORUS 4.3 mg/dL (2.5-4.5); POTASSIUM 4.8 mmol/L (3.6-5.0)
[2019-11-11] MEDS: FOLIC ACID 1 MG TABLET PO SCH (11:09)
[2019-11-11] MEDS: FAMOTIDINE 20 MG TABLET PO SCH ×2 (11:09→22:15)
[2019-11-11] MEDS: THIAMINE HCL 100 MG TABLET PO SCH (11:09)
[2019-11-11] MEDS: DEXAMETHASONE SOD PHOSPHATE INJ 4 MG/1 ML VIAL IV SCH (11:09)
[2019-11-11] MEDS: ZINC SULFATE 220 MG CAPSULE PO SCH (11:09)
[2019-11-11] MEDS: NICOTINE 14 MG/24 HR PATCH.TD24 TD SCH (11:10)
[2019-11-11] MEDS: NORMAL SALINE 10 ML SDV (SCHEDULED) IV SCH ×2 (11:10→22:17)
--- NOTE | 2019-11-11 13:17 | PDOC CRITICAL CARE PROG REPORT ---
General Date:: 11/11/19 ICU Day:: 9 Hospital Day:: 10 Resuscitation Status: Full Code Events in the past 12 to 24 Hours:: This 59-year-old male smoker [facility] with complaints of increased dyspnea, nausea, dysgeusia/ageusia. He had COVID-19 testing on 10/27, which was positive. He was at home in isolation but felt that he was clinically deteriorating and presented to the hospital. 11/06: At the time of clinical interview, the patient has recently had his Precedex infusion discontinued due to altered mental status (excessive sedation). He has no known home medications. He has been started on Zyprexa 5 mg p.o. every 12 hours (haloperidol is noted to be on his allergy list). The patient was also started on acyclovir empirically (presumably for possible viral encephalitis) on 11/05 with anecdotal report of overall improvement. He is on BiPAP 14/11, FiO2 60%. During the clinical interview, the patient does start to moan and groan, move all 4 extremities and shift/adjust his position in the bed. He is on dexamethasone 4 mg IV every 8 hours along with vitamin C. 11/07: Now on high flow cannula (100% FiO2, 40 LPM). Respiratory rate in the 20s. SPO2 90-93%. Mentating well. Tearful. Frustrated. Denies pain. Complains about soft restraints. Yesterday, the patient required physical restraint due to uncooperative behavior (getting out of bed with CPAP mask on), resulting in interruption of IV administrations and disconnection of CPAP/BiPAP circuit. Kurt gannon 178. D-dimer 12.58. LDH 752. 11/08: Has remained on high flow nasal cannula, tolerating it well. 100% FiO2, 30 LPM. Respiratory rate 20s to 30s. Mentating well. 11/09: On high flow nasal cannula, 100% FiO2, 25 LPM. Mentating well. 11/10: On high flow nasal cannula, 100% FiO2, 20 LPM. Mentating well. Complains of generalized weakness. WBC 26.1>22. Review of systems relevant to events:: Respiratory: COVID-19 pneumonia Neurologic: Delirium Reason for ICU Addmission:: Hypoxemic respiratory failure secondary to COVID-19 pneumonia - Medications: Medications reviewed and adjusted accordingly: Yes Physical Exam Vital Signs: Temp Pulse Resp BP Pulse Ox 98.4 F 90 30 H 108/70 97 11/11/19 10:00 11/11/19 10:00 11/11/19 11:00 11/11/19 10:43 11/11/19 11:00 Intake & Output 11/10/19 11/11/19 11/12/19 06:59 06:59 06:59 Intake Total 342 840 240 Output Total 2165 1035 200 Balance -1823 -195 40 Weight 71.7 kg 69.8 kg Weight/Height Weight 69.8 kg Height 1.68 m General appearance: PRESENT: no acute distress, well-developed, well-nourished Head exam: PRESENT: atraumatic, normocephalic Eye exam: PRESENT: conjunctiva pink, EOMI, PERRLA. ABSENT: scleral icterus Mouth exam: PRESENT: moist, tongue midline Neck exam: ABSENT: carotid bruit, JVD, lymphadenopathy, thyromegaly Respiratory exam: PRESENT: crackles, tachypnea. ABSENT: rhonchi, wheezes Cardiovascular exam: PRESENT: RRR. ABSENT: diastolic murmur, rubs, systolic murmur Pulses: PRESENT: normal dorsalis pedis pul GI/Abdominal exam: PRESENT: normal bowel sounds, soft. ABSENT: distended, guarding, mass, organolmegaly, rebound, tenderness Extremities exam: PRESENT: full ROM. ABSENT: calf tenderness, clubbing, pedal edema Musculoskeletal exam: PRESENT: normal inspection. ABSENT: deformity Neurological exam: PRESENT: alert, awake, oriented to person, oriented to place, oriented to time, oriented to situation, CN II-XII grossly intact. ABSENT: motor sensory deficit Psychiatric exam: PRESENT: depressed. ABSENT: agitated, anxious Skin exam: PRESENT: dry, intact, warm. ABSENT: cyanosis, rash Laboratory/Radiographs Laboratory Results: 11/11/19 06:03 11/11/19 06:03 11/11/19 11/11/19 06:03 06:03 WBC 22.0 H RBC 4.45 Hgb 12.9 L Hct 38.3 MCV 86 MCH 29.0 MCHC 33.7 RDW 13.9 Plt Count 457 H Sodium 136.0 L Potassium 4.8 Chloride 102 Carbon Dioxide 28 Anion Gap 6 BUN 28 H Creatinine 0.71 Est GFR ( Amer) > 60 Glucose 111 H Calcium 8.4 Phosphorus 4.3 Magnesium 2.4 H 11/02/19 11/07/19 11/08/19 11:45 13:20 03:12 Troponin I < 0.012 < 0.012 NT-Pro-B Natriuret Pep 175 H Impressions: Head CT 11/04/19 00:00 IMPRESSION: No acute intracranial findings. Incidental note is made of scant fluid levels within the sphenoid compartment. EVIDENCE OF ACUTE STROKE: NO. PICC Line Insertion 11/06/19 10:56 IMPRESSION: SUCCESSFUL PLACEMENT OF A 5 FR DUAL LUMEN 45 CM PICC IN THE LEFT BASILIC VEIN. Chest X-Ray 11/10/19 00:00 IMPRESSION: NO SIGNIFICANT CHANGE IN APPEARANCE OF THE CHEST. All labs, radiographs, diagnostic studies and EKGs were personally reviewed: Yes In addition, reports of radiographic and diagnostic studies were read: Yes Assessment and Plan - Diagnosis (1) Acute respiratory failure with hypoxia Is this a current diagnosis for this admission?: Yes Plan: Maintain FiO2 100%. Wean flow rate, as tolerated to keep SPO2 90+%. Treated with empiric Rocephin/azithromycin (has received 6 day course). (2) Pneumonia due to COVID-19 virus Is this a current diagnosis for this admission?: Yes Plan: Stop Decadron today (10 day course. Stop date 11/11/2019). He may need a rapid taper after completion of the 10-day course. WBC count downtrending, likely secondary to steroids. On vitamin C and zinc. IL-6 sample submitted but was reported to be insufficient for analysis. (3) Delirium Is this a current diagnosis for this admission?: Yes Plan: Resolved. Will parse medications on the MAY to avoid any sedative/hypnotic or narcotic medications. (4) Abnormal EKG Is this a current diagnosis for this admission?: Yes (5) Tobacco abuse Is this a current diagnosis for this admission?: Yes Plan Summary: OK to transfer to [facility] from pulmonary/critical care standpoint. Critical Time Critical Time (minutes): 45 Level of Care: ICU -: 1. The care of a critical patient is a dynamic process. This note is a district sales representative synopsis but static in nature. The timeframe for treatments given in order is not necessarily the actual time these treatments may have been done. 2. This patient requires critical care secondary to ongoing requirements for therapy not offered or safe outside the critical care environment. Transfer to a lower level of care will result in altered life or limb morbidity and mortality. 3. Multidisciplinary rounds completed. 4. ABCDE bundle addressed.
[2019-11-12] MEDS: ASCORBIC ACID 500 MG TABLET PO SCH ×4 (02:25→21:10)
[2019-11-12] MEDS: HEPARIN SOD (PORCINE) 5,000 UNIT/ML 1 ML VIAL SUBCUT SCH (05:37)
[2019-11-12] MEDS ORDERED: LORAZEPAM 1 MG TABLET PO PRN (09:03)
[2019-11-12] MEDS: NICOTINE 14 MG/24 HR PATCH.TD24 TD SCH (09:24)
[2019-11-12] MEDS: DEXAMETHASONE 4 MG TABLET PO SCH ×2 (09:29→21:11)
[2019-11-12] MEDS: BUSPIRONE HCL 10 MG TABLET PO SCH ×2 (09:29→21:14)
[2019-11-12] MEDS: FOLIC ACID 1 MG TABLET PO SCH (09:29)
[2019-11-12] MEDS: THIAMINE HCL 100 MG TABLET PO SCH (09:30)
[2019-11-12] MEDS: ZINC SULFATE 220 MG CAPSULE PO SCH (09:30)
[2019-11-12] MEDS: NORMAL SALINE 10 ML SDV (SCHEDULED) IV SCH ×2 (09:30→21:15)
[2019-11-12] MEDS: FAMOTIDINE 20 MG TABLET PO SCH ×2 (09:30→21:11)
[2019-11-12] MEDS: CHOLECALCIFEROL (D3) 400 UNIT TABLET PO SCH (09:30)
--- NOTE | 2019-11-12 11:02 | PDOC PROGRESS REPORT ---
Subjective Progress Note for:: 11/12/19 Subjective:: Patient was seen on morning rounds. He was found resting in bed, comfortably, on supplemental oxygen via HFNC (FiO2 90%, 20 LPM). Patient is A&Ox4, though with mild encephalopathy (restless, picking at sheets, poor attention, easy startle, and repetitiveness). Patient reports mild dyspnea at rest, although significantly improved. He denies pleurisy and cough. He further denies fever, chest pain, palpitations, abdominal pain, nausea vomiting and diarrhea. He request something for anxiety and otherwise has no concerns at this time. No concerns per nursing. Reason For Visit: HYPOXEMIA, HYPERCOAGULABLE STATE ASS W/COVID-19 Physical Exam Vital Signs: Temp Pulse Resp BP Pulse Ox 98 F 91 28 H 114/66 97 11/12/19 05:43 11/12/19 07:00 11/12/19 06:00 11/12/19 05:42 11/12/19 06:00 Intake & Output 11/11/19 11/12/19 11/13/19 06:59 06:59 06:59 Intake Total 840 240 Output Total 1035 900 Balance -195 -660 Weight 69.8 kg 69.2 kg General appearance: PRESENT: no acute distress, cooperative, well-developed, well-nourished Head exam: PRESENT: atraumatic, normocephalic Eye exam: PRESENT: conjunctiva pink, EOMI, PERRLA. ABSENT: scleral icterus Mouth exam: PRESENT: moist, tongue midline Respiratory exam: PRESENT: clear to auscultation alessandra, decreased breath sounds - bibasilar, symmetrical, unlabored, other - supplemental O2. ABSENT: rales, rhonchi, wheezes Cardiovascular exam: PRESENT: RRR. ABSENT: diastolic murmur, rubs, systolic murmur Pulses: PRESENT: normal dorsalis pedis pul Vascular exam: PRESENT: normal capillary refill GI/Abdominal exam: PRESENT: normal bowel sounds, soft. ABSENT: distended, guarding, mass, organolmegaly, rebound, tenderness Rectal exam: PRESENT: deferred Extremities exam: PRESENT: full ROM. ABSENT: calf tenderness, clubbing, pedal edema Neurological exam: PRESENT: alert, awake, oriented to person, oriented to place, oriented to time, oriented to situation, CN II-XII grossly intact. ABSENT: motor sensory deficit Psychiatric exam: PRESENT: anxious, appropriate affect, normal mood. ABSENT: homicidal ideation, suicidal ideation Focused psych exam: PRESENT: restlessness Skin exam: PRESENT: dry, intact, warm. ABSENT: cyanosis, rash Results Laboratory Results: 11/11/19 06:03 11/11/19 06:03 11/02/19 11/07/19 11/08/19 11:45 13:20 03:12 Troponin I < 0.012 < 0.012 NT-Pro-B Natriuret Pep 175 H Impressions: Head CT 11/04/19 00:00 IMPRESSION: No acute intracranial findings. Incidental note is made of scant fluid levels within the sphenoid compartment. EVIDENCE OF ACUTE STROKE: NO. PICC Line Insertion 11/06/19 10:56 IMPRESSION: SUCCESSFUL PLACEMENT OF A 5 FR DUAL LUMEN 45 CM PICC IN THE LEFT BASILIC VEIN. Chest X-Ray 11/10/19 00:00 IMPRESSION: NO SIGNIFICANT CHANGE IN APPEARANCE OF THE CHEST. Assessment and Plan - Diagnosis (1) Pneumonia due to COVID-19 virus Is this a current diagnosis for this admission?: Yes Plan: Previously received IV azithromycin. Transition to p.o. Decadron 2 mg twice daily for steroid weaning. Continue vitamin C, vitamin D, zinc, melatonin. Continue supplemental oxygen and pulmonary toilet. (2) Acute respiratory failure with hypoxia Is this a current diagnosis for this admission?: Yes Plan: Improved. Secondary to #1. Management as above. (3) Delirium Is this a current diagnosis for this admission?: Yes Plan: Improved Continue weaning sedatives; decrease Ativan from 2 mg IV to 1 mg p.o. as needed anxiety/agitation. Continue weaning steroids. Supportive care. (4) Tobacco abuse Is this a current diagnosis for this admission?: Yes Plan: Cessation encouraged. Nicotine replacement therapies provided. (5) Abnormal EKG Is this a current diagnosis for this admission?: Yes Plan: Resolved. Prior diffuse ST segment changes likely secondary to respiratory failure with hypoxia Troponin negative - Time Time Spent with patient: 25-34 minutes Medications reviewed and adjusted accordingly: Yes Anticipated Discharge Disposition: Home, Self Care Anticipated Discharge Timeframe: >72 hrs
[2019-11-12 11:48] LABS: ANION GAP 5 (5-19); BLOOD UREA NITROGEN 30 mg/dL (7-20); C-REACTIVE PROTEIN 48.7 mg/L (<10.0); CALCIUM 8.5 mg/dL (8.4-10.2); CARBON DIOXIDE 29 mmol/L (22-30); CHLORIDE 101 mmol/L (98-107); GLUCOSE 108 mg/dL (75-110); POTASSIUM 4.5 mmol/L (3.6-5.0)
[2019-11-12 12:05] LABS: ABSOLUTE EOSINOPHILS # (AUTO) 0.3 10^3/uL (0.0-0.6); ABSOLUTE LYMPHOCYTES (AUTO) 1.2 10^3/uL (0.5-4.7); ABSOLUTE MONOCYTES (AUTO) 1.7 10^3/uL (0.1-1.4); ABSOLUTE NEUT (AUTO) 15.4 10^3/uL (1.7-8.2); BASOPHILS % (AUTO) 0.3 % (0-2); EOSINOPHILS % (AUTO) 1.5 % (0-6); HEMATOCRIT 39.3 % (37.9-51.0); HEMOGLOBIN 12.9 g/dL (13.5-17.0); LYMPHOCYTES % (AUTO) 6.5 % (13-45); MEAN CORPUSCULAR HEMOGLOBIN 28.5 pg (27.0-33.4); MEAN CORPUSCULAR HGB CONC 32.7 g/dL (32.0-36.0); MEAN CORPUSCULAR VOLUME 87 fl (80-97); MONOCYTES % (AUTO) 9.2 % (3-13); PLATELET COUNT 622 10^3/uL (150-450); RED BLOOD COUNT 4.52 10^6/uL (4.35-5.55); RED CELL DISTRIBUTION WIDTH 13.6 % (11.5-14.0); SEGMENTED NEUTROPHILS % (AUTO) 82.5 % (42-78); TOTAL CELLS COUNTED % (AUTO) 100 %; WHITE BLOOD COUNT 18.6 10^3/uL (4.0-10.5)
[2019-11-12] MEDS: ENOXAPARIN SODIUM INJ 80 MG/0.8 ML DISP.SYRIN SUBCUT SCH (21:10)
[2019-11-12] MEDS: MELATONIN 3 MG TABLET PO SCH (21:13)
[2019-11-12 22:49] LABS: APPEARANCE,URINE CLEAR; BILIRUBIN,URINE NEGATIVE (NEGATIVE); COLOR,URINE YELLOW; GLUCOSE, URINE NEGATIVE (NEGATIVE); KETONES,URINE NEGATIVE (NEGATIVE); LEUKOCYTE ESTERASE,URINE NEGATIVE (NEGATIVE); NITRITE,URINE NEGATIVE (NEGATIVE); PROTEIN,URINE NEGATIVE (NEGATIVE); URINE SPECIFIC GRAVITY 1.026
[2019-11-13] MEDS: ASCORBIC ACID 500 MG TABLET PO SCH ×4 (04:52→21:14)
[2019-11-13 05:22] LABS: HEMATOCRIT 35.2 % (37.9-51.0); HEMOGLOBIN 11.8 g/dL (13.5-17.0); MEAN CORPUSCULAR HEMOGLOBIN 29.2 pg (27.0-33.4); MEAN CORPUSCULAR HGB CONC 33.4 g/dL (32.0-36.0); MEAN CORPUSCULAR VOLUME 87 fl (80-97); PLATELET COUNT 503 10^3/uL (150-450); RED BLOOD COUNT 4.03 10^6/uL (4.35-5.55); RED CELL DISTRIBUTION WIDTH 13.7 % (11.5-14.0); WHITE BLOOD COUNT 13.8 10^3/uL (4.0-10.5)
[2019-11-13 05:38] LABS: ANION GAP 6 (5-19); BLOOD UREA NITROGEN 26 mg/dL (7-20); CALCIUM 8.3 mg/dL (8.4-10.2); CARBON DIOXIDE 30 mmol/L (22-30); CHLORIDE 101 mmol/L (98-107); GLUCOSE 128 mg/dL (75-110); POTASSIUM 4.8 mmol/L (3.6-5.0)
[2019-11-13] MEDS: NICOTINE 14 MG/24 HR PATCH.TD24 TD SCH (11:40)
[2019-11-13] MEDS: ENOXAPARIN SODIUM INJ 80 MG/0.8 ML DISP.SYRIN SUBCUT SCH ×2 (11:41→21:17)
[2019-11-13] MEDS: ZINC SULFATE 220 MG CAPSULE PO SCH (11:41)
[2019-11-13] MEDS: FAMOTIDINE 20 MG TABLET PO SCH ×2 (11:41→21:16)
[2019-11-13] MEDS: CHOLECALCIFEROL (D3) 400 UNIT TABLET PO SCH (11:42)
[2019-11-13] MEDS: FOLIC ACID 1 MG TABLET PO SCH (11:42)
[2019-11-13] MEDS: DEXAMETHASONE 4 MG TABLET PO SCH ×2 (11:42→21:14)
[2019-11-13] MEDS: THIAMINE HCL 100 MG TABLET PO SCH (11:42)
[2019-11-13] MEDS: BUSPIRONE HCL 10 MG TABLET PO SCH ×2 (11:42→21:16)
[2019-11-13] MEDS: NORMAL SALINE 10 ML SDV (SCHEDULED) IV SCH ×2 (11:43→21:17)
[2019-11-13] MEDS: INSULIN REG, HUMAN 100 UNIT/ML 3 ML VIAL (PYX) SUBCUT SCH (12:10)
--- NOTE | 2019-11-13 13:49 | PDOC PROGRESS REPORT ---
Subjective Progress Note for:: 11/13/19 Subjective:: Patient was seen on morning rounds. He was found resting in bed, comfortably, on supplemental oxygen via HFNC (FiO2 70%, 35 LPM). Patient is A&Ox4. Slightly tearful today; tells me that his [id number]'s is today ( of COVID-19 while he was in the ICU). He is missing his family. Patient reports mild dyspnea at rest, although significantly improved. He denies pleurisy and cough. He also reports generalized weakness; states that he was trying to ambulate independently and had to sit down on the floor, "leg suddenly became Jell-O." He admits to some anxiety regarding the length of his illness. Otherwise, he has no questions or concerns and does tell me that he is feeling better than yesterday. Very appreciative of his care. He further denies fever, chest pain, palpitations, abdominal pain, nausea vomiting and diarrhea. No concerns per nursing. Reason For Visit: HYPOXEMIA, HYPERCOAGULABLE STATE ASS W/COVID-19 Physical Exam Vital Signs: Temp Pulse Resp BP Pulse Ox 97.8 F 77 20 112/58 L 97 11/13/19 11:30 11/13/19 11:30 11/13/19 11:45 11/13/19 11:30 11/13/19 11:45 Intake & Output 11/12/19 11/13/19 11/14/19 06:59 06:59 06:59 Intake Total 240 740 Output Total 900 250 Balance -660 490 Weight 69.2 kg 69.2 kg General appearance: PRESENT: no acute distress, cooperative, well-developed, well-nourished Head exam: PRESENT: atraumatic, normocephalic Eye exam: PRESENT: conjunctiva pink, EOMI, PERRLA. ABSENT: scleral icterus Mouth exam: PRESENT: moist, tongue midline Respiratory exam: PRESENT: clear to auscultation alessandra, decreased breath sounds, symmetrical, unlabored. ABSENT: rales, rhonchi, wheezes Cardiovascular exam: PRESENT: RRR, +S1, +S2. ABSENT: diastolic murmur, rubs, systolic murmur Vascular exam: PRESENT: normal capillary refill Extremities exam: PRESENT: full ROM. ABSENT: calf tenderness, clubbing, pedal edema Neurological exam: PRESENT: alert, awake, oriented to person, oriented to place, oriented to time, oriented to situation, CN II-XII grossly intact. ABSENT: motor sensory deficit Psychiatric exam: PRESENT: anxious, appropriate affect, normal mood - tearful. ABSENT: homicidal ideation, suicidal ideation Skin exam: PRESENT: dry, intact, warm. ABSENT: cyanosis, rash Results Laboratory Results: 11/13/19 04:23 11/13/19 04:23 11/12/19 11/13/19 11/13/19 22:00 04:23 04:23 WBC 13.8 H RBC 4.03 L Hgb 11.8 L Hct 35.2 L MCV 87 MCH 29.2 MCHC 33.4 RDW 13.7 Plt Count 503 H Sodium 136.7 L Potassium 4.8 Chloride 101 Carbon Dioxide 30 Anion Gap 6 BUN 26 H Creatinine 0.72 Est GFR ( Amer) > 60 Glucose 128 H Calcium 8.3 L Urine Color YELLOW Urine Appearance CLEAR Urine pH 5.0 Ur Specific [place] 1.026 Urine Protein NEGATIVE Urine Glucose (UA) NEGATIVE Urine Ketones NEGATIVE Urine Blood NEGATIVE Urine Nitrite NEGATIVE Ur Leukocyte Esterase NEGATIVE Urine WBC (Auto) 1 Urine RBC (Auto) 1 11/02/19 11/07/19 11/08/19 11:45 13:20 03:12 Troponin I < 0.012 < 0.012 NT-Pro-B Natriuret Pep 175 H Impressions: Head CT 11/04/19 00:00 IMPRESSION: No acute intracranial findings. Incidental note is made of scant fluid levels within the sphenoid compartment. EVIDENCE OF ACUTE STROKE: NO. PICC Line Insertion 11/06/19 10:56 IMPRESSION: SUCCESSFUL PLACEMENT OF A 5 FR DUAL LUMEN 45 CM PICC IN THE LEFT BASILIC VEIN. Chest X-Ray 11/10/19 00:00 IMPRESSION: NO SIGNIFICANT CHANGE IN APPEARANCE OF THE CHEST. Assessment and Plan - Diagnosis (1) Pneumonia due to COVID-19 virus Is this a current diagnosis for this admission?: Yes Plan: Previously received IV azithromycin. Transition to p.o. Decadron 2 mg twice daily for steroid weaning. Continue vitamin C, vitamin D, zinc, melatonin. Continue supplemental oxygen and pulmonary toilet; continue weaning O2. PT eval. (2) Acute respiratory failure with hypoxia Is this a current diagnosis for this admission?: Yes Plan: Continues to improve Secondary to #1. Management as above. (3) Delirium Is this a current diagnosis for this admission?: Yes Plan: Improved Continue weaning sedatives; currently has Ativan from 1 mg p.o. as needed anxiety/agitation. Continue weaning steroids. Supportive care. (4) Tobacco abuse Is this a current diagnosis for this admission?: Yes Plan: Cessation encouraged. Nicotine replacement therapies provided. (5) Abnormal EKG Is this a current diagnosis for this admission?: Yes Plan: Resolved. Prior diffuse ST segment changes likely secondary to respiratory failure with hypoxia Troponin negative (6) Anxiety Is this a current diagnosis for this admission?: Yes Plan: BuSpar twice daily. P.o. Ativan as needed. Supportive care. - Time Time Spent with patient: 35 or more minutes Medications reviewed and adjusted accordingly: Yes Anticipated Discharge Disposition: Home with Home Health - PT OT Anticipated Discharge Timeframe: > 72 hrs
[2019-11-13] MEDS: MELATONIN 3 MG TABLET PO SCH (21:14)
[2019-11-14] MEDS: ASCORBIC ACID 500 MG TABLET PO SCH ×4 (05:42→21:41)
[2019-11-14] MEDS: IPRATROPIUM/ALBUTEROL 0.5-2.5 MG/3 ML AMPUL NEB PRN (08:48)
[2019-11-14] MEDS: FAMOTIDINE 20 MG TABLET PO SCH ×2 (09:49→21:39)
[2019-11-14] MEDS: DEXAMETHASONE 4 MG TABLET PO SCH (09:49)
[2019-11-14] MEDS: FOLIC ACID 1 MG TABLET PO SCH (09:49)
[2019-11-14] MEDS: ENOXAPARIN SODIUM INJ 80 MG/0.8 ML DISP.SYRIN SUBCUT SCH ×2 (09:49→21:39)
[2019-11-14] MEDS: THIAMINE HCL 100 MG TABLET PO SCH (09:50)
[2019-11-14] MEDS: ZINC SULFATE 220 MG CAPSULE PO SCH (09:50)
[2019-11-14] MEDS: CHOLECALCIFEROL (D3) 400 UNIT TABLET PO SCH (09:50)
[2019-11-14] MEDS: BUSPIRONE HCL 10 MG TABLET PO SCH ×2 (09:50→21:39)
[2019-11-14] MEDS: NICOTINE 14 MG/24 HR PATCH.TD24 TD SCH (09:50)
[2019-11-14] MEDS: NORMAL SALINE 10 ML SDV (SCHEDULED) IV SCH (09:50)
--- NOTE | 2019-11-14 13:51 | PDOC PROGRESS REPORT ---
Subjective Progress Note for:: 11/14/19 Subjective:: Patient was seen on morning rounds. He was found resting in bed, comfortably, on supplemental oxygen via HFNC (FiO2 50%, 20 LPM). Patient is A&Ox4. Tearful today; he is missing his family and feels like he has not made any progress. He continues to be quite weak is having difficulty getting up to the restroom without profound exhaustion or shortness of breath. Patient admits to increased anxiety from baseline. Patient reports mild dyspnea at rest, although significantly improved. He denies pleurisy and cough. H Otherwise, he has no questions or concerns and does tell me that he is feeling better than yesterday. Very appreciative of his care. Provided encouragement and reassurance He further denies fever, chest pain, palpitations, abdominal pain, nausea vomiting and diarrhea. No concerns per nursing. Reason For Visit: HYPOXEMIA, HYPERCOAGULABLE STATE ASS W/COVID-19 Physical Exam Vital Signs: Temp Pulse Resp BP Pulse Ox 97.7 F 68 18 108/61 97 11/14/19 09:12 11/14/19 09:12 11/14/19 13:03 11/14/19 09:12 11/14/19 13:03 Intake & Output 11/13/19 11/14/19 11/15/19 06:59 06:59 06:59 Intake Total 740 700 Output Total 250 300 Balance 490 400 Weight 69.2 kg 69.5 kg General appearance: PRESENT: no acute distress, cooperative, well-developed, well-nourished Head exam: PRESENT: atraumatic, normocephalic Eye exam: PRESENT: conjunctiva pink, EOMI, PERRLA. ABSENT: scleral icterus Mouth exam: PRESENT: moist, tongue midline Respiratory exam: PRESENT: clear to auscultation alessandra, symmetrical, unlabored. ABSENT: rales, rhonchi, wheezes Cardiovascular exam: PRESENT: RRR. ABSENT: diastolic murmur, rubs, systolic murmur Pulses: PRESENT: normal dorsalis pedis pul Vascular exam: PRESENT: normal capillary refill Extremities exam: PRESENT: full ROM. ABSENT: calf tenderness, clubbing, pedal edema Neurological exam: PRESENT: alert, awake, oriented to person, oriented to place, oriented to time, oriented to situation, CN II-XII grossly intact. ABSENT: motor sensory deficit Psychiatric exam: PRESENT: anxious, appropriate affect, normal mood - Tearful. ABSENT: homicidal ideation, suicidal ideation Skin exam: PRESENT: dry, intact, warm. ABSENT: cyanosis, rash Results Laboratory Results: 11/13/19 04:23 11/13/19 04:23 11/02/19 11/07/19 11/08/19 11:45 13:20 03:12 Troponin I < 0.012 < 0.012 NT-Pro-B Natriuret Pep 175 H Impressions: Head CT 11/04/19 00:00 IMPRESSION: No acute intracranial findings. Incidental note is made of scant fluid levels within the sphenoid compartment. EVIDENCE OF ACUTE STROKE: NO. PICC Line Insertion 11/06/19 10:56 IMPRESSION: SUCCESSFUL PLACEMENT OF A 5 FR DUAL LUMEN 45 CM PICC IN THE LEFT BASILIC VEIN. Chest X-Ray 11/10/19 00:00 IMPRESSION: NO SIGNIFICANT CHANGE IN APPEARANCE OF THE CHEST. Assessment and Plan - Diagnosis (1) Pneumonia due to COVID-19 virus Is this a current diagnosis for this admission?: Yes Plan: Previously received IV azithromycin. Decrease to p.o. Decadron 1 mg twice daily for steroid weaning. Continue vitamin C, vitamin D, zinc, melatonin. Continue supplemental oxygen and pulmonary toilet; continue weaning O2. Doing well. PT eval. (2) Acute respiratory failure with hypoxia Is this a current diagnosis for this admission?: Yes Plan: Continues to improve Secondary to #1. Management as above. (3) Delirium Is this a current diagnosis for this admission?: Yes Plan: Improved Continue weaning sedatives; currently has Ativan from 1 mg p.o. as needed anxiety/agitation. Continue weaning steroids. Supportive care. (4) Tobacco abuse Is this a current diagnosis for this admission?: Yes Plan: Cessation encouraged. Nicotine replacement therapies provided. (5) Abnormal EKG Is this a current diagnosis for this admission?: Yes Plan: Resolved. Prior diffuse ST segment changes likely secondary to respiratory failure with hypoxia Troponin negative (6) Anxiety Is this a current diagnosis for this admission?: Yes Plan: BuSpar twice daily. Will add low-dose Depakote for labile emotions. Patient may benefit from SSRI; will discuss this with him tomorrow; Paxil, Lexapro, Effexor may be most effective given his anxious disposition P.o. Ativan as needed. Supportive care. - Time Time Spent with patient: 25-34 minutes Medications reviewed and adjusted accordingly: Yes Anticipated Discharge Disposition: Home with Home Health Anticipated Discharge Timeframe: > 72 hr
[2019-11-14] MEDS: MELATONIN 3 MG TABLET PO SCH (21:39)
[2019-11-14] MEDS: DEXAMETHASONE 0.5 MG TABLET PO SCH (21:43)
[2019-11-14] MEDS: DIVALPROEX SODIUM 250 MG TAB.SR.24H PO SCH (21:43)
[2019-11-15] MEDS: NORMAL SALINE 10 ML SDV (SCHEDULED) IV SCH ×3 (01:37→21:22)
[2019-11-15] MEDS: ASCORBIC ACID 500 MG TABLET PO SCH ×4 (05:18→21:20)
[2019-11-15 06:36] LABS: HEMATOCRIT 34.9 % (37.9-51.0); HEMOGLOBIN 11.7 g/dL (13.5-17.0); MEAN CORPUSCULAR HEMOGLOBIN 29.2 pg (27.0-33.4); MEAN CORPUSCULAR HGB CONC 33.4 g/dL (32.0-36.0); MEAN CORPUSCULAR VOLUME 88 fl (80-97); PLATELET COUNT 534 10^3/uL (150-450); RED BLOOD COUNT 3.99 10^6/uL (4.35-5.55); RED CELL DISTRIBUTION WIDTH 13.5 % (11.5-14.0); WHITE BLOOD COUNT 12.3 10^3/uL (4.0-10.5)
[2019-11-15 06:44] LABS: ANION GAP 5 (5-19); BLOOD UREA NITROGEN 16 mg/dL (7-20); CALCIUM 8.7 mg/dL (8.4-10.2); CARBON DIOXIDE 31 mmol/L (22-30); CHLORIDE 98 mmol/L (98-107); GLUCOSE 115 mg/dL (75-110); POTASSIUM 4.8 mmol/L (3.6-5.0)
[2019-11-15] MEDS: IPRATROPIUM/ALBUTEROL 0.5-2.5 MG/3 ML AMPUL NEB PRN (08:11)
[2019-11-15] MEDS: DIVALPROEX SODIUM 250 MG TAB.SR.24H PO SCH (09:10)
[2019-11-15] MEDS: FOLIC ACID 1 MG TABLET PO SCH (09:10)
[2019-11-15] MEDS: DEXAMETHASONE 0.5 MG TABLET PO SCH ×2 (09:10→21:21)
[2019-11-15] MEDS: FAMOTIDINE 20 MG TABLET PO SCH ×2 (09:10→21:20)
[2019-11-15] MEDS: ENOXAPARIN SODIUM INJ 80 MG/0.8 ML DISP.SYRIN SUBCUT SCH ×2 (09:11→21:19)
[2019-11-15] MEDS: ZINC SULFATE 220 MG CAPSULE PO SCH (09:11)
[2019-11-15] MEDS: BUSPIRONE HCL 10 MG TABLET PO SCH ×2 (09:12→21:22)
[2019-11-15] MEDS: THIAMINE HCL 100 MG TABLET PO SCH (09:12)
[2019-11-15] MEDS: CHOLECALCIFEROL (D3) 400 UNIT TABLET PO SCH (09:12)
[2019-11-15] MEDS: NICOTINE 14 MG/24 HR PATCH.TD24 TD SCH (09:17)
--- NOTE | 2019-11-15 14:31 | PDOC PROGRESS REPORT ---
Subjective Progress Note for:: 11/15/19 Subjective:: Patient was seen on morning rounds. He was found resting in bed, comfortably, on supplemental oxygen via HFNC (FiO2 50%, 20 LPM). Patient is A&Ox4. Tearful today and somewhat confused today. He tells me that he is feeling very tired; thinks that he is worsened today. He is noted to maintain oxygen saturations in the mid 90s while at rest, does continue to desat to the mid 80s with minimal activity. He denies fever, chest pain, palpitations, abdominal pain, nausea vomiting and diarrhea. Decreased appetite today. He has no other questions or concerns at this time. No concerns per nursing. Reason For Visit: HYPOXEMIA, HYPERCOAGULABLE STATE ASS W/COVID-19 Physical Exam Vital Signs: Temp Pulse Resp BP Pulse Ox 98.1 F 85 24 H 106/65 97 11/15/19 11:10 11/15/19 11:10 11/15/19 11:10 11/15/19 11:10 11/15/19 11:10 Intake & Output 11/14/19 11/15/19 11/16/19 06:59 06:59 06:59 Intake Total 700 561 222 Output Total 300 475 Balance 400 86 222 Weight 69.5 kg 71.5 kg General appearance: PRESENT: no acute distress, cooperative, well-developed, well-nourished Head exam: PRESENT: atraumatic, normocephalic Eye exam: PRESENT: conjunctiva pink, EOMI, PERRLA. ABSENT: scleral icterus Mouth exam: PRESENT: moist, tongue midline Respiratory exam: PRESENT: clear to auscultation alessandra, symmetrical, unlabored, other - High flow nasal cannula. ABSENT: rales, rhonchi, wheezes Cardiovascular exam: PRESENT: RRR. ABSENT: diastolic murmur, rubs, systolic murmur Pulses: PRESENT: normal dorsalis pedis pul Vascular exam: PRESENT: normal capillary refill Extremities exam: PRESENT: full ROM. ABSENT: calf tenderness, clubbing, pedal edema Neurological exam: PRESENT: alert, awake, oriented to person, oriented to place, oriented to time, oriented to situation, CN II-XII grossly intact. ABSENT: motor sensory deficit Psychiatric exam: PRESENT: appropriate affect. ABSENT: homicidal ideation, normal mood - Labile emotions; tearful, suicidal ideation Skin exam: PRESENT: dry, intact, warm. ABSENT: cyanosis, rash Results Laboratory Results: 11/15/19 05:50 11/15/19 05:50 11/15/19 11/15/19 05:50 05:50 WBC 12.3 H RBC 3.99 L Hgb 11.7 L Hct 34.9 L MCV 88 MCH 29.2 MCHC 33.4 RDW 13.5 Plt Count 534 H Sodium 134.3 L Potassium 4.8 Chloride 98 Carbon Dioxide 31 H Anion Gap 5 BUN 16 Creatinine 0.72 Est GFR ( Amer) > 60 Glucose 115 H Calcium 8.7 Ferritin 680.00 H 11/02/19 11/07/19 11/08/19 11:45 13:20 03:12 Troponin I < 0.012 < 0.012 NT-Pro-B Natriuret Pep 175 H Impressions: Head CT 11/04/19 00:00 IMPRESSION: No acute intracranial findings. Incidental note is made of scant fluid levels within the sphenoid compartment. EVIDENCE OF ACUTE STROKE: NO. PICC Line Insertion 11/06/19 10:56 IMPRESSION: SUCCESSFUL PLACEMENT OF A 5 FR DUAL LUMEN 45 CM PICC IN THE LEFT BASILIC VEIN. Chest X-Ray 11/10/19 00:00 IMPRESSION: NO SIGNIFICANT CHANGE IN APPEARANCE OF THE CHEST. Assessment and Plan - Diagnosis (1) Pneumonia due to COVID-19 virus Is this a current diagnosis for this admission?: Yes Plan: Previously received IV azithromycin. Decrease to p.o. Decadron 1 mg twice daily for steroid weaning. Continue vitamin C, vitamin D, zinc, melatonin. Continue supplemental oxygen and pulmonary toilet; continue weaning O2. Doing well; will try to transition to Oxymizer PT eval. (2) Acute respiratory failure with hypoxia Is this a current diagnosis for this admission?: Yes Plan: Continues to improve Secondary to #1. Management as above. (3) Delirium Is this a current diagnosis for this admission?: Yes Plan: Improved Continue weaning sedatives; currently has Ativan from 1 mg p.o. as needed anxiety/agitation. Continue weaning steroids. Supportive care. (4) Tobacco abuse Is this a current diagnosis for this admission?: Yes Plan: Cessation encouraged. Nicotine replacement therapies provided. (5) Abnormal EKG Is this a current diagnosis for this admission?: Yes Plan: Resolved. Prior diffuse ST segment changes likely secondary to respiratory failure with hypoxia Troponin negative (6) Anxiety Is this a current diagnosis for this admission?: Yes Plan: BuSpar twice daily. Patient agreeable to start of antidepressant; will try Effexor due to antianxiety effect. P.o. Ativan as needed. Supportive care. - Time Time Spent with patient: 25-34 minutes Medications reviewed and adjusted accordingly: Yes Anticipated Discharge Disposition: Home, Self Care Anticipated Discharge Timeframe: >72 hrs
[2019-11-15] MEDS: LORAZEPAM 1 MG TABLET PO PRN (21:20)
[2019-11-15] MEDS: MELATONIN 3 MG TABLET PO SCH (21:20)
[2019-11-16] MEDS: ASCORBIC ACID 500 MG TABLET PO SCH ×4 (03:55→21:43)
[2019-11-16 06:58] LABS: HEMATOCRIT 36.3 % (37.9-51.0); HEMOGLOBIN 12.6 g/dL (13.5-17.0); MEAN CORPUSCULAR HEMOGLOBIN 29.9 pg (27.0-33.4); MEAN CORPUSCULAR HGB CONC 34.6 g/dL (32.0-36.0); MEAN CORPUSCULAR VOLUME 86 fl (80-97); PLATELET COUNT 593 10^3/uL (150-450); RED CELL DISTRIBUTION WIDTH 13.8 % (11.5-14.0); WHITE BLOOD COUNT 12.2 10^3/uL (4.0-10.5)
[2019-11-16] MEDS: ZINC SULFATE 220 MG CAPSULE PO SCH (09:07)
[2019-11-16] MEDS: BUSPIRONE HCL 10 MG TABLET PO SCH (09:07)
[2019-11-16] MEDS: THIAMINE HCL 100 MG TABLET PO SCH (09:07)
[2019-11-16] MEDS: DEXAMETHASONE 0.5 MG TABLET PO SCH (09:07)
[2019-11-16] MEDS: FAMOTIDINE 20 MG TABLET PO SCH (09:07)
[2019-11-16] MEDS: FOLIC ACID 1 MG TABLET PO SCH (09:08)
[2019-11-16] MEDS: NORMAL SALINE 10 ML SDV (SCHEDULED) IV SCH ×2 (09:08→21:44)
[2019-11-16] MEDS: NORMAL SALINE 10 ML SDV (AFTER EACH USE) IV PRN (09:08)
[2019-11-16] MEDS: CHOLECALCIFEROL (D3) 400 UNIT TABLET PO SCH (09:08)
[2019-11-16] MEDS: VENLAFAXINE HCL 37.5 MG CAP.SR.24H PO SCH (09:08)
[2019-11-16] MEDS: ENOXAPARIN SODIUM INJ 80 MG/0.8 ML DISP.SYRIN SUBCUT SCH (09:09)
--- NOTE | 2019-11-16 17:51 | PDOC PROGRESS REPORT ---
Subjective Progress Note for:: 11/16/19 Subjective:: Patient was seen on afternoon rounds. He was found resting in bed, comfortably, on supplemental oxygen via venti-mask just after having finished working with physical therapy; SpO2 remained > 92% throughout. Patient is A&Ox4. Remains very anxious with labial emotions and tangential thinking. He tells me that he is feeling very tired; thinks that he is worsened today. He denies fever, chest pain, palpitations, abdominal pain, nausea vomiting and diarrhea. He has no other questions or concerns at this time. No concerns per nursing. Reason For Visit: HYPOXEMIA, HYPERCOAGULABLE STATE ASS W/COVID-19 Physical Exam Vital Signs: Temp Pulse Resp BP Pulse Ox 98.1 F 93 14 101/66 95 11/16/19 10:58 11/16/19 14:00 11/16/19 11:36 11/16/19 10:58 11/16/19 16:40 Intake & Output 11/15/19 11/16/19 11/17/19 06:59 06:59 06:59 Intake Total 561 333 444 Output Total 475 1075 640 Balance 86 -742 -196 Weight 71.5 kg 71.5 kg 71.5 kg General appearance: PRESENT: no acute distress, cooperative, well-developed, well-nourished Head exam: PRESENT: atraumatic, normocephalic Eye exam: PRESENT: conjunctiva pink, EOMI, PERRLA. ABSENT: scleral icterus Mouth exam: PRESENT: moist, tongue midline Respiratory exam: PRESENT: clear to auscultation alessandra, symmetrical, tachypnea - appears to be r/t anxiety, unlabored, other - venti-mask. ABSENT: rales, rhonchi, wheezes Cardiovascular exam: PRESENT: RRR. ABSENT: diastolic murmur, rubs, systolic murmur Pulses: PRESENT: normal dorsalis pedis pul Vascular exam: PRESENT: normal capillary refill Extremities exam: PRESENT: full ROM. ABSENT: calf tenderness, clubbing, pedal edema Neurological exam: PRESENT: alert, awake, oriented to person, oriented to place, oriented to time, oriented to situation, CN II-XII grossly intact. ABSENT: motor sensory deficit Psychiatric exam: PRESENT: anxious, appropriate affect. ABSENT: homicidal ideation, suicidal ideation Skin exam: PRESENT: dry, intact, warm. ABSENT: cyanosis, rash Results Laboratory Results: 11/16/19 05:40 11/15/19 05:50 11/16/19 05:40 WBC 12.2 H RBC 4.20 L Hgb 12.6 L Hct 36.3 L MCV 86 MCH 29.9 MCHC 34.6 RDW 13.8 Plt Count 593 H 11/02/19 11/07/19 11/08/19 11:45 13:20 03:12 Troponin I < 0.012 < 0.012 NT-Pro-B Natriuret Pep 175 H Impressions: Head CT 11/04/19 00:00 IMPRESSION: No acute intracranial findings. Incidental note is made of scant fluid levels within the sphenoid compartment. EVIDENCE OF ACUTE STROKE: NO. PICC Line Insertion 11/06/19 10:56 IMPRESSION: SUCCESSFUL PLACEMENT OF A 5 FR DUAL LUMEN 45 CM PICC IN THE LEFT BASILIC VEIN. Chest X-Ray 11/10/19 00:00 IMPRESSION: NO SIGNIFICANT CHANGE IN APPEARANCE OF THE CHEST. Assessment and Plan - Diagnosis (1) Pneumonia due to COVID-19 virus Is this a current diagnosis for this admission?: Yes Plan: Improved; decreased oxygen requirement. Leukocytosis improved 26->12. D-dimer overall improved 2.47->12.58->6.48->3.38 Ferritin trending down 1780->1670-> 680 LDH improved 752->632 CRP improved 136->47 Previously received IV azithromycin. Discontinue Decadron today following slow steroid weaning. Continue vitamin C, vitamin D, zinc, melatonin. Continue supplemental oxygen and pulmonary toilet; continue weaning O2. Doing well; have transitioned to standard Nasal Cannula this afternoon. PT eval. (2) Acute respiratory failure with hypoxia Is this a current diagnosis for this admission?: Yes Plan: Continues to improve Secondary to #1. Management as above. (3) Delirium Is this a current diagnosis for this admission?: Yes Plan: Improved Continue weaning sedatives; currently has Ativan from 0.5 mg p.o. as needed anxiety/agitation. Have discontinued steroids. Supportive care. (4) Tobacco abuse Is this a current diagnosis for this admission?: Yes Plan: Cessation encouraged. Nicotine replacement therapies provided. (5) Abnormal EKG Is this a current diagnosis for this admission?: Yes Plan: Resolved. Prior diffuse ST segment changes likely secondary to respiratory failure with hypoxia Troponin negative (6) Anxiety Is this a current diagnosis for this admission?: Yes Plan: BuSpar twice daily. Patient agreeable to start of antidepressant; will try Effexor due to antianxiety effect. P.o. Ativan as needed. Supportive care. - Time Time Spent with patient: 25-34 minutes Medications reviewed and adjusted accordingly: Yes Anticipated Discharge Disposition: Home, Self Care Anticipated Discharge Timeframe: 3-4 days
[2019-11-17] MEDS: ENOXAPARIN SODIUM INJ 80 MG/0.8 ML DISP.SYRIN SUBCUT SCH ×3 (01:30→21:17)
[2019-11-17] MEDS: BUSPIRONE HCL 10 MG TABLET PO SCH ×3 (01:30→21:17)
[2019-11-17] MEDS: MELATONIN 3 MG TABLET PO SCH ×2 (01:30→21:17)
[2019-11-17] MEDS: FAMOTIDINE 20 MG TABLET PO SCH ×3 (01:30→21:17)
[2019-11-17] MEDS: LORAZEPAM 1 MG TABLET PO PRN ×3 (01:45→21:17)
[2019-11-17 01:50] LABS: ARTERIAL BLOOD H2CO3 1.32 mmol/L (1.05-1.35); ARTERIAL BLOOD HCO3 30.5 mmol/L (20-24); ARTERIAL BLOOD O2 SATURATION 94.9 % (94-98); ARTERIAL BLOOD PCO2 43.7 mmHg (35-45); ARTERIAL BLOOD PH 7.46 (7.35-7.45); ARTERIAL BLOOD PO2 70.1 mmHg (80-100); ARTERIAL BLOOD TOTAL CO2 31.9 mmol/L (23-27)
[2019-11-17 01:51] LABS: ARTERIAL BLOOD FIO2 6L
[2019-11-17] MEDS: ASCORBIC ACID 500 MG TABLET PO SCH ×4 (03:33→21:17)
[2019-11-17 06:18] LABS: HEMATOCRIT 36.6 % (37.9-51.0); HEMOGLOBIN 12.4 g/dL (13.5-17.0); MEAN CORPUSCULAR HEMOGLOBIN 29.5 pg (27.0-33.4); MEAN CORPUSCULAR HGB CONC 33.9 g/dL (32.0-36.0); MEAN CORPUSCULAR VOLUME 87 fl (80-97); PLATELET COUNT 522 10^3/uL (150-450); RED CELL DISTRIBUTION WIDTH 13.9 % (11.5-14.0); WHITE BLOOD COUNT 10.1 10^3/uL (4.0-10.5)
[2019-11-17 06:40] LABS: ALBUMIN 2.9 g/dL (3.5-5.0); ALKALINE PHOSPHATASE 267 U/L (38-126); ANION GAP 6 (5-19); ASPARTATE AMINO TRANSFERASE 50 U/L (17-59); BILIRUBIN,TOTAL 0.6 mg/dL (0.2-1.3); BLOOD UREA NITROGEN 22 mg/dL (7-20); CALCIUM 8.8 mg/dL (8.4-10.2); CARBON DIOXIDE 31 mmol/L (22-30); CHLORIDE 99 mmol/L (98-107); GLUCOSE 117 mg/dL (75-110); POTASSIUM 4.7 mmol/L (3.6-5.0); TOTAL PROTEIN 5.7 g/dL (6.3-8.2)
[2019-11-17] MEDS: FOLIC ACID 1 MG TABLET PO SCH (09:17)
[2019-11-17] MEDS: THIAMINE HCL 100 MG TABLET PO SCH (09:17)
[2019-11-17] MEDS: ZINC SULFATE 220 MG CAPSULE PO SCH (09:17)
[2019-11-17] MEDS: VENLAFAXINE HCL 37.5 MG CAP.SR.24H PO SCH (09:17)
[2019-11-17] MEDS: CHOLECALCIFEROL (D3) 400 UNIT TABLET PO SCH (09:17)
[2019-11-17] MEDS: NORMAL SALINE 10 ML SDV (SCHEDULED) IV SCH ×2 (09:19→21:28)
[2019-11-17] MEDS: NORMAL SALINE 10 ML SDV (AFTER EACH USE) IV PRN (09:19)
--- NOTE | 2019-11-17 15:34 | PDOC PROGRESS REPORT ---
Subjective Progress Note for:: 11/17/19 Subjective:: Patient got out of bed last night to try and call the nurses. He was having some difficulty breathing. He does admit that he gets panicky and anxious. Even during this encounter who reports that he is short of breath but his oxygenation is normal. Reason For Visit: HYPOXEMIA, HYPERCOAGULABLE STATE ASS W/COVID-19 Physical Exam Vital Signs: Temp Pulse Resp BP Pulse Ox 98.0 F 64 16 92/60 L 94 11/17/19 12:40 11/17/19 14:00 11/17/19 12:40 11/17/19 12:40 11/17/19 12:40 Intake & Output 11/16/19 11/17/19 11/18/19 06:59 06:59 06:59 Intake Total 333 555 410 Output Total 1075 915 400 Balance -742 -360 10 Weight 71.5 kg 69.4 kg General appearance: PRESENT: cooperative, mild distress, well-developed Head exam: PRESENT: atraumatic, normocephalic Eye exam: PRESENT: conjunctiva pink. ABSENT: scleral icterus Ear exam: PRESENT: normal external ear exam. ABSENT: bleeding, drainage Mouth exam: PRESENT: dry mucosa, tongue midline Respiratory exam: PRESENT: decreased breath sounds - Very shallow inspiratory phase. Difficult to auscultate., symmetrical, tachypnea. ABSENT: accessory muscle use, rhonchi, wheezes Cardiovascular exam: PRESENT: RRR, +S1, +S2. ABSENT: bradycardia, diastolic murmur, irregular rhythm, systolic murmur, tachycardia GI/Abdominal exam: PRESENT: normal bowel sounds, soft. ABSENT: distended, guarding, tenderness Rectal exam: PRESENT: deferred Gentrourinary exam: ABSENT: indwelling catheter Extremities exam: ABSENT: pedal edema Musculoskeletal exam: PRESENT: ambulatory, normal inspection Neurological exam: PRESENT: alert, awake, oriented to person, oriented to place, oriented to time, oriented to situation, CN II-XII grossly intact. ABSENT: altered Psychiatric exam: PRESENT: anxious, appropriate affect. ABSENT: agitated Focused psych exam: ABSENT: delusional, paranoid, restlessness Skin exam: PRESENT: dry, warm. ABSENT: rash Results Laboratory Results: 11/17/19 05:40 11/17/19 05:40 11/17/19 11/17/19 11/17/19 01:38 05:40 05:40 WBC 10.1 RBC 4.20 L Hgb 12.4 L Hct 36.6 L MCV 87 MCH 29.5 MCHC 33.9 RDW 13.9 Plt Count 522 H Carbonic Acid 1.32 HCO3/H2CO3 Ratio 23:1 ABG pH 7.46 H ABG pCO2 43.7 ABG pO2 70.1 L ABG HCO3 30.5 H ABG O2 Saturation 94.9 ABG Base Excess 6.0 FiO2 6L Sodium 135.5 L Potassium 4.7 Chloride 99 Carbon Dioxide 31 H Anion Gap 6 BUN 22 H Creatinine 0.70 Est GFR ( Amer) > 60 Glucose 117 H Calcium 8.8 Total Bilirubin 0.6 AST 50 Alkaline Phosphatase 267 H Total Protein 5.7 L Albumin 2.9 L 11/02/19 11/07/19 11/08/19 11:45 13:20 03:12 Troponin I < 0.012 < 0.012 NT-Pro-B Natriuret Pep 175 H Impressions: Head CT 11/04/19 00:00 IMPRESSION: No acute intracranial findings. Incidental note is made of scant fluid levels within the sphenoid compartment. EVIDENCE OF ACUTE STROKE: NO. PICC Line Insertion 11/06/19 10:56 IMPRESSION: SUCCESSFUL PLACEMENT OF A 5 FR DUAL LUMEN 45 CM PICC IN THE LEFT BASILIC VEIN. Chest X-Ray 11/10/19 00:00 IMPRESSION: NO SIGNIFICANT CHANGE IN APPEARANCE OF THE CHEST. Assessment and Plan - Diagnosis (1) Pneumonia due to COVID-19 virus Is this a current diagnosis for this admission?: Yes Plan: Stable on nasal cannula oxygen. Unfortunately the patient's perceived shortness of breath is more anxiety. We will continue with vitamin C, vitamin D, zinc and melatonin. Continue to wean oxygen as tolerated. (2) Acute respiratory failure with hypoxia Is this a current diagnosis for this admission?: Yes Plan: Slowly improving. There is no history of COPD and so typical inhalers will likely not be helpful. He has tapered off of the Decadron and we will continue to wean his oxygen. (3) Delirium Is this a current diagnosis for this admission?: Yes Plan: Likely a combination of infection and medications. Anxiety is still a significant issue and since we are weaning his benzodiazepine therapy he has been started on BuSpar and Effexor. Delirium seems to have resolved completely at this point. (4) Tobacco abuse Is this a current diagnosis for this admission?: Yes Plan: Continued cessation during hospitalization. Nicotine replacement therapy available. (5) Abnormal EKG Is this a current diagnosis for this admission?: Yes Plan: ST changes noted at admission secondary to respiratory failure with hypoxia. Serial troponins were negative. EKG is normal. (6) Anxiety Is this a current diagnosis for this admission?: Yes Plan: Currently on scheduled BuSpar 10 mg twice daily. Effexor 37.5 mg has been initiated. He still has PRN lorazepam available. - Time Time Spent with patient: 15-24 minutes Medications reviewed and adjusted accordingly: Yes Anticipated Discharge Disposition: Home with Home Health Anticipated Discharge Timeframe: Unknown
[2019-11-17] MEDS ORDERED: ALBUTEROL SULFATE HFA (90 MCG/PUFF) 8 GM MDI IH PRN (21:18)
[2019-11-17 21:21] LABS: APPEARANCE,URINE SLIGHTLY-CLOUDY; BILIRUBIN,URINE NEGATIVE (NEGATIVE); CALCIUM OXALATE CRYSTALS,URINE MODERATE /HPF; COLOR,URINE YELLOW; GLUCOSE, URINE NEGATIVE (NEGATIVE); KETONES,URINE NEGATIVE (NEGATIVE); LEUKOCYTE ESTERASE,URINE NEGATIVE (NEGATIVE); NITRITE,URINE NEGATIVE (NEGATIVE); PROTEIN,URINE NEGATIVE (NEGATIVE); URINE SPECIFIC GRAVITY 1.018; UROBILINOGEN,URINE NEGATIVE mg/dL (<2.0)
[2019-11-17] MEDS ORDERED: ALBUTEROL SULFATE HFA (90 MCG/PUFF) 200 PUFF/8.5 GM MDI IH PRN (21:42)
[2019-11-18] MEDS: ASCORBIC ACID 500 MG TABLET PO SCH ×4 (05:06→21:15)
[2019-11-18] MEDS ORDERED: NICOTINE 7 MG/24 HR PATCH.TD24 TD PRN (06:10)
[2019-11-18 07:03] LABS: ALBUMIN 3.1 g/dL (3.5-5.0); ALKALINE PHOSPHATASE 254 U/L (38-126); ANION GAP 9 (5-19); ASPARTATE AMINO TRANSFERASE 50 U/L (17-59); BILIRUBIN,TOTAL 0.6 mg/dL (0.2-1.3); BLOOD UREA NITROGEN 23 mg/dL (7-20); CALCIUM 8.8 mg/dL (8.4-10.2); CARBON DIOXIDE 29 mmol/L (22-30); CHLORIDE 97 mmol/L (98-107); GLUCOSE 106 mg/dL (75-110); POTASSIUM 4.8 mmol/L (3.6-5.0); TOTAL PROTEIN 5.8 g/dL (6.3-8.2)
--- NOTE | 2019-11-18 08:56 | PDOC PROGRESS REPORT ---
Subjective Progress Note for:: 11/18/19 Subjective:: restful night. Decreased anxiety. Still with limited inspiratory volumes Reason For Visit: HYPOXEMIA, HYPERCOAGULABLE STATE ASS W/COVID-19 Physical Exam Vital Signs: Temp Pulse Resp BP Pulse Ox 98.3 F 81 17 94/63 L 93 11/18/19 05:03 11/18/19 05:03 11/18/19 05:03 11/18/19 05:03 11/18/19 05:03 Intake & Output 11/17/19 11/18/19 11/19/19 06:59 06:59 06:59 Intake Total 555 670 Output Total 915 600 Balance -360 70 Weight 69.4 kg 70 kg General appearance: PRESENT: no acute distress, cooperative, well-developed Head exam: PRESENT: atraumatic, normocephalic Eye exam: PRESENT: conjunctiva pink. ABSENT: scleral icterus Ear exam: PRESENT: normal external ear exam. ABSENT: bleeding, drainage Mouth exam: PRESENT: moist, tongue midline Respiratory exam: PRESENT: rales - Still with Velcro rales and short inspiratory phase, symmetrical, unlabored. ABSENT: rhonchi, tachypnea, wheezes Cardiovascular exam: PRESENT: RRR, +S1, +S2. ABSENT: bradycardia, diastolic murmur, irregular rhythm, systolic murmur, tachycardia GI/Abdominal exam: PRESENT: normal bowel sounds, soft. ABSENT: distended, guarding, tenderness Rectal exam: PRESENT: deferred Gentrourinary exam: ABSENT: indwelling catheter Extremities exam: PRESENT: full ROM. ABSENT: joint swelling, pedal edema Musculoskeletal exam: PRESENT: ambulatory, full ROM, normal inspection. ABSENT: deformity, dislocation Neurological exam: PRESENT: alert, awake, oriented to person, oriented to place, oriented to time, oriented to situation, CN II-XII grossly intact. ABSENT: altered, motor sensory deficit Psychiatric exam: PRESENT: appropriate affect. ABSENT: agitated, anxious Focused psych exam: ABSENT: delusional, paranoid, restlessness Skin exam: PRESENT: dry, normal color, warm. ABSENT: rash Results Laboratory Results: 11/18/19 05:20 11/18/19 05:20 11/17/19 11/18/19 11/18/19 20:54 05:20 05:20 WBC 7.7 RBC 4.30 L Hgb 12.7 L Hct 38.0 MCV 88 MCH 29.6 MCHC 33.5 RDW 14.0 Plt Count 523 H Sodium 134.5 L Potassium 4.8 Chloride 97 L Carbon Dioxide 29 Anion Gap 9 BUN 23 H Creatinine 0.70 Est GFR ( Amer) > 60 Glucose 106 Calcium 8.8 Ferritin 577.00 H Total Bilirubin 0.6 AST 50 Alkaline Phosphatase 254 H Total Protein 5.8 L Albumin 3.1 L Urine Color YELLOW Urine Appearance SLIGHTLY-CLOUDY Urine pH 6.0 Ur Specific [place] 1.018 Urine Protein NEGATIVE Urine Glucose (UA) NEGATIVE Urine Ketones NEGATIVE Urine Blood NEGATIVE Urine Nitrite NEGATIVE Ur Leukocyte Esterase NEGATIVE Urine WBC (Auto) 1 Urine RBC (Auto) 0 11/02/19 11/07/19 11/08/19 11:45 13:20 03:12 Troponin I < 0.012 < 0.012 NT-Pro-B Natriuret Pep 175 H Impressions: Head CT 11/04/19 00:00 IMPRESSION: No acute intracranial findings. Incidental note is made of scant fluid levels within the sphenoid compartment. EVIDENCE OF ACUTE STROKE: NO. PICC Line Insertion 11/06/19 10:56 IMPRESSION: SUCCESSFUL PLACEMENT OF A 5 FR DUAL LUMEN 45 CM PICC IN THE LEFT BASILIC VEIN. Chest X-Ray 11/10/19 00:00 IMPRESSION: NO SIGNIFICANT CHANGE IN APPEARANCE OF THE CHEST. Assessment and Plan - Diagnosis (1) Pneumonia due to COVID-19 virus Is this a current diagnosis for this admission?: Yes Plan: Continues to slowly improve. Antibiotic therapy completed. Still requiring oxygen supplement. (2) Acute respiratory failure with hypoxia Is this a current diagnosis for this admission?: Yes Plan: Still requiring oxygen supplementation. Will taper to room air. (3) Delirium Is this a current diagnosis for this admission?: Yes Plan: Resolved (4) Tobacco abuse Is this a current diagnosis for this admission?: Yes Plan: Continue smoking cessation. Nicotine patch if needed. (5) Abnormal EKG Is this a current diagnosis for this admission?: Yes Plan: Resolved ST changes noted at admission secondary to respiratory failure with hypoxia. Serial troponins were negative. EKG is normal. (6) Anxiety Is this a current diagnosis for this admission?: Yes Plan: Anxiety is much improved today. BuSpar and increased dose of Effexor seem to be helping. - Time Time Spent with patient: 15-24 minutes Medications reviewed and adjusted accordingly: Yes Anticipated Discharge Disposition: Home, Self Care Anticipated Discharge Timeframe: Will be determined by oxygen requirements
[2019-11-18] MEDS ORDERED: VENLAFAXINE HCL 75 MG CAP.SR.24H PO SCH (10:00)
[2019-11-18] MEDS: ENOXAPARIN SODIUM INJ 80 MG/0.8 ML DISP.SYRIN SUBCUT SCH ×2 (10:00→21:16)
[2019-11-18] MEDS: ZINC SULFATE 220 MG CAPSULE PO SCH (11:18)
[2019-11-18] MEDS: FAMOTIDINE 20 MG TABLET PO SCH ×2 (11:19→21:15)
[2019-11-18] MEDS: BUSPIRONE HCL 10 MG TABLET PO SCH ×2 (11:19→21:16)
[2019-11-18] MEDS: FOLIC ACID 1 MG TABLET PO SCH (11:19)
[2019-11-18] MEDS: THIAMINE HCL 100 MG TABLET PO SCH (11:20)
[2019-11-18] MEDS: NORMAL SALINE 10 ML SDV (SCHEDULED) IV SCH ×2 (11:20→21:16)
[2019-11-18] MEDS: CHOLECALCIFEROL (D3) 400 UNIT TABLET PO SCH (11:20)
[2019-11-18] MEDS: MELATONIN 3 MG TABLET PO SCH (21:15)
[2019-11-19] MEDS: ASCORBIC ACID 500 MG TABLET PO SCH ×5 (03:07→23:53)
--- NOTE | 2019-11-19 09:26 | PDOC PROGRESS REPORT ---
Subjective Progress Note for:: 11/19/19 Subjective:: Still anxious. Wants to go home. Now complains of pills getting stuck when swallowing Reason For Visit: HYPOXEMIA, HYPERCOAGULABLE STATE ASS W/COVID-19 Physical Exam Vital Signs: Temp Pulse Resp BP Pulse Ox 97.9 F 96 24 H 108/62 95 11/19/19 07:59 11/19/19 07:59 11/19/19 07:59 11/19/19 07:59 11/19/19 08:11 Intake & Output 11/18/19 11/19/19 11/20/19 06:59 06:59 06:59 Intake Total 670 0 Output Total 600 700 Balance 70 -700 Weight 70 kg 70 kg General appearance: PRESENT: no acute distress, cooperative, well-developed Head exam: PRESENT: atraumatic, normocephalic Mouth exam: PRESENT: moist, tongue midline Respiratory exam: PRESENT: clear to auscultation alessandra, symmetrical, tachypnea - with shallow respirations, unlabored. ABSENT: rales, rhonchi, wheezes Cardiovascular exam: PRESENT: RRR, +S1, +S2, systolic murmur. ABSENT: bradycardia, diastolic murmur, irregular rhythm GI/Abdominal exam: PRESENT: normal bowel sounds, soft. ABSENT: distended, guarding, tenderness Rectal exam: PRESENT: deferred Gentrourinary exam: ABSENT: indwelling catheter Extremities exam: PRESENT: full ROM. ABSENT: joint swelling, pedal edema Musculoskeletal exam: PRESENT: ambulatory, normal inspection. ABSENT: deformity, dislocation Neurological exam: PRESENT: alert, awake, oriented to person, oriented to place, oriented to time, oriented to situation, CN II-XII grossly intact, normal gait. ABSENT: altered Psychiatric exam: PRESENT: anxious, appropriate affect. ABSENT: agitated Focused psych exam: ABSENT: delusional, paranoid, restlessness Skin exam: PRESENT: dry, normal color, warm. ABSENT: erythema, rash Results Laboratory Results: 11/18/19 05:20 11/18/19 05:20 11/02/19 11/07/19 11/08/19 11:45 13:20 03:12 Troponin I < 0.012 < 0.012 NT-Pro-B Natriuret Pep 175 H Impressions: Head CT 11/04/19 00:00 IMPRESSION: No acute intracranial findings. Incidental note is made of scant fluid levels within the sphenoid compartment. EVIDENCE OF ACUTE STROKE: NO. PICC Line Insertion 11/06/19 10:56 IMPRESSION: SUCCESSFUL PLACEMENT OF A 5 FR DUAL LUMEN 45 CM PICC IN THE LEFT BASILIC VEIN. Chest X-Ray 11/10/19 00:00 IMPRESSION: NO SIGNIFICANT CHANGE IN APPEARANCE OF THE CHEST. Assessment and Plan - Diagnosis (1) Pneumonia due to COVID-19 virus Is this a current diagnosis for this admission?: Yes Plan: Antibiotics completed. Pneumonia appears to be resolved however he still requires oxygen to keep his saturation greater than or equal to 90%. Will apply for home oxygen therapy. The patient is an active smoker and supposedly has a history of COPD that could be complicating his recovery. (2) Acute respiratory failure with hypoxia Is this a current diagnosis for this admission?: Yes Plan: Secondary to the COVID pneumonia. Pneumonia has resolved however patient still requires oxygen therapy to maintain saturation greater than 90% (3) Anxiety Is this a current diagnosis for this admission?: Yes Plan: I have adjusted his medications again. I have changed him to venlafaxine 50 mg immediate release twice daily instead of 75 mg extended release. This should continue to augment the BuSpar to settle his anxiety. He is also extremely anxious from his prolonged hospitalization. If I can get home oxygen therapy I will be able to discharge him. The sensation of pills getting stuck in his throat is more likely due to his anxiety. If this persists we can check an upper GI series/esophagram. (4) Tobacco abuse Is this a current diagnosis for this admission?: Yes Plan: Continue to encourage cessation (5) Elevated transaminase level Is this a current diagnosis for this admission?: Yes Plan: AST is 125 and ALT is 254. They seem to be slowly improving. Likely from the COVID infection. (6) Abnormal EKG Is this a current diagnosis for this admission?: Yes Plan: Resolved ST changes noted at admission secondary to respiratory failure with hypoxia. Serial troponins were negative. EKG is normal. (7) Delirium Is this a current diagnosis for this admission?: Yes Plan: Second to infection. Resolved. - Time Time Spent with patient: 25-34 minutes Smoking Cessation Education: 3 to 10 minutes Medications reviewed and adjusted accordingly: Yes Anticipated Discharge Disposition: Home with Home Health Anticipated Discharge Timeframe: within 48 hours
[2019-11-19] MEDS: BUSPIRONE HCL 10 MG TABLET PO SCH ×2 (10:23→22:04)
[2019-11-19] MEDS: FOLIC ACID 1 MG TABLET PO SCH (10:23)
[2019-11-19] MEDS: ZINC SULFATE 220 MG CAPSULE PO SCH (10:23)
[2019-11-19] MEDS: ENOXAPARIN SODIUM INJ 80 MG/0.8 ML DISP.SYRIN SUBCUT SCH ×2 (10:23→22:04)
[2019-11-19] MEDS: FAMOTIDINE 20 MG TABLET PO SCH ×2 (10:23→22:04)
[2019-11-19] MEDS: THIAMINE HCL 100 MG TABLET PO SCH (10:23)
[2019-11-19] MEDS: NORMAL SALINE 10 ML SDV (SCHEDULED) IV SCH ×2 (10:24→22:05)
[2019-11-19] MEDS: VENLAFAXINE HCL 25 MG TABLET PO SCH ×2 (12:22→22:04)
[2019-11-19 14:24] LABS: APPEARANCE,URINE CLEAR; BILIRUBIN,URINE NEGATIVE (NEGATIVE); CALCIUM OXALATE CRYSTALS,URINE MODERATE /HPF; COLOR,URINE YELLOW; GLUCOSE, URINE NEGATIVE (NEGATIVE); KETONES,URINE NEGATIVE (NEGATIVE); LEUKOCYTE ESTERASE,URINE NEGATIVE (NEGATIVE); NITRITE,URINE NEGATIVE (NEGATIVE); PROTEIN,URINE NEGATIVE (NEGATIVE); URINE SPECIFIC GRAVITY 1.005; UROBILINOGEN,URINE NEGATIVE mg/dL (<2.0)
[2019-11-19] MEDS ORDERED: MELATONIN 3 MG TABLET PO SCH (22:00)
[2019-11-20] MEDS: ASCORBIC ACID 500 MG TABLET PO SCH ×3 (05:34→19:02)
[2019-11-20 06:18] LABS: HEMATOCRIT 37.9 % (37.9-51.0); HEMOGLOBIN 12.9 g/dL (13.5-17.0); MEAN CORPUSCULAR HEMOGLOBIN 29.5 pg (27.0-33.4); MEAN CORPUSCULAR HGB CONC 34.1 g/dL (32.0-36.0); MEAN CORPUSCULAR VOLUME 87 fl (80-97); PLATELET COUNT 426 10^3/uL (150-450); RED BLOOD COUNT 4.38 10^6/uL (4.35-5.55); RED CELL DISTRIBUTION WIDTH 14.3 % (11.5-14.0); WHITE BLOOD COUNT 6.7 10^3/uL (4.0-10.5)
[2019-11-20 06:26] LABS: ALBUMIN 3.1 g/dL (3.5-5.0); ALKALINE PHOSPHATASE 248 U/L (38-126); ANION GAP 6 (5-19); ASPARTATE AMINO TRANSFERASE 44 U/L (17-59); BILIRUBIN,TOTAL 0.5 mg/dL (0.2-1.3); BLOOD UREA NITROGEN 22 mg/dL (7-20); CALCIUM 8.7 mg/dL (8.4-10.2); CARBON DIOXIDE 33 mmol/L (22-30); CHLORIDE 98 mmol/L (98-107); GLUCOSE 109 mg/dL (75-110); POTASSIUM 4.4 mmol/L (3.6-5.0); TOTAL PROTEIN 5.8 g/dL (6.3-8.2)
[2019-11-20] MEDS: FOLIC ACID 1 MG TABLET PO SCH (10:20)
[2019-11-20] MEDS: BUSPIRONE HCL 10 MG TABLET PO SCH (10:20)
[2019-11-20] MEDS: FAMOTIDINE 20 MG TABLET PO SCH (10:20)
[2019-11-20] MEDS: ZINC SULFATE 220 MG CAPSULE PO SCH (10:20)
[2019-11-20] MEDS: THIAMINE HCL 100 MG TABLET PO SCH (10:20)
[2019-11-20] MEDS: VENLAFAXINE HCL 25 MG TABLET PO SCH (10:21)
[2019-11-20] MEDS: ENOXAPARIN SODIUM INJ 80 MG/0.8 ML DISP.SYRIN SUBCUT SCH (10:21)
[2019-11-20] MEDS: NORMAL SALINE 10 ML SDV (SCHEDULED) IV SCH (10:22)
[2019-11-20 11:23] LABS: APPEARANCE,URINE SLIGHTLY-CLOUDY; BILIRUBIN,URINE NEGATIVE (NEGATIVE); CALCIUM OXALATE CRYSTALS,URINE FEW /HPF; COLOR,URINE AMBER; GLUCOSE, URINE NEGATIVE (NEGATIVE); KETONES,URINE NEGATIVE (NEGATIVE); LEUKOCYTE ESTERASE,URINE NEGATIVE (NEGATIVE); NITRITE,URINE NEGATIVE (NEGATIVE); PROTEIN,URINE NEGATIVE (NEGATIVE); URINE SPECIFIC GRAVITY 1.027; UROBILINOGEN,URINE NEGATIVE mg/dL (<2.0)
[2019-11-20 15:14] VITALS: BP 149/79
--- NOTE | 2019-11-20 15:32 | PDOC DISCHARGE SUMMARY ---
Impression - Admit/DC Date/PCP Admission Date/Primary Care Provider: 11/02/19 13:23 Discharge Date: 11/20/19 - Discharge Diagnosis (1) Pneumonia due to COVID-19 virus Is this a current diagnosis for this admission?: Yes (2) Acute respiratory failure with hypoxia Is this a current diagnosis for this admission?: Yes (3) Anxiety Is this a current diagnosis for this admission?: Yes (4) Tobacco abuse Is this a current diagnosis for this admission?: Yes (5) Elevated transaminase level Is this a current diagnosis for this admission?: Yes (6) Abnormal EKG Is this a current diagnosis for this admission?: Yes (7) Delirium Is this a current diagnosis for this admission?: Yes - Additional Information Resuscitation Status: Full Code Discharge Diet: Regular Discharge Activity: Balance Activity w/Rest, Slowly Increase Activity Referrals: PADMINI HILLS MD [ACTIVE STAFF] - 11/27/19 9:00 am LANCE HUNT MD [EMERITUS] - Prescriptions: Buspirone HCl [Buspar 10 mg Tablet] 10 mg PO Q12 #60 tablet Venlafaxine HCl [Effexor 25 mg Tablet] 50 mg PO Q12 #60 tablet Home Medications: Acetaminophen [Tylenol 325 mg Tablet] 650 mg PO Q4HP PRN tablet 11/20/19 Albuterol Sulfate [Proair HFA Inhalation Aerosol 8.5 gm MDI] 2 puff IH Q4HP PRN hfa.[id number].[email or web address] 11/20/19 Ascorbic Acid [Vitamin C 500 mg Tablet] 500 mg PO BID tablet 11/20/19 Buspirone HCl [Buspar 10 mg Tablet] 10 mg PO Q12 #60 tablet 11/20/19 Melatonin [Melatonin 3 mg Tablet] 3 mg PO QHS tablet 11/20/19 Nicotine [Nicoderm 7 mg/24 Hr Transdermal Patch] 1 each TD DAILYP PRN patch.td24 11/20/19 Phenol/Sodium Phenolate [Chloraseptic Sore Throat Sharon 177 ml] 1 spray PO Q6HP PRN bottle 11/20/19 Thiamine HCl [Thiamine 100 mg Tablet] 100 mg PO DAILY tablet 11/20/19 Venlafaxine HCl [Effexor 25 mg Tablet] 50 mg PO Q12 #60 tablet 11/20/19 Zinc Sulfate [Zinc-220 Capsule] 220 mg PO DAILY capsule 11/20/19 History of Present Illiness History of Present Illness: YOLA KAPLAN JR is a 59-year-old gentleman with no significant past medical history except for tobacco and EtOH abuse. He was seen in the ED on 10/28/2019 with general body aches and possible fever which was suspicious for COVID-19 infection. He was sent home to self isolate while awaiting results. Patient developed shortness of breath, nausea, loss of taste and return to the emergency room. He was noted in the ED to have mild leukocytosis, elevated d- dimer, elevated total bilirubin and aminotransferases. He was found to be hypoxemic on room air and started on BiPAP. He was then admitted to medicine service and transferred to the [facility]. Over the course of the day, patient required increased amount of oxygen to maintain an SPO2 greater than 90% while on BiPAP. He also became extremely combative requiring escalating doses of Ativan, morphine and Valium. I was called by the medicine service to evaluate the patient for possible admission to the intensive care unit. Upon arrival to his bedside, patient was combative, however he was oxygenating well on 75% FiO2 while on BiPAP. I do not believe that hypoxemia was contributing to his agitation. Due to the level of opioids and benzodiazepines required to prevent patient from removing his BiPAP mask and causing possible harm to himself, I have accepted him to the intensive care unit for close monitoring. His ABG while on BiPAP with 90% FiO2: 7.41/43.5/63.8/26.9. Chest x-ray shows scattered infiltrates which seems to be consistent with his COVID symptoms. Patient was started on a Precedex drip. We will continue to monitor his respiratory status and mental status closely. Hospital Course Hospital Course: (1) Pneumonia due to COVID-19 virus Is this a current diagnosis for this admission?: Yes Plan: Antibiotics completed. Pneumonia appears to be resolved however he still requires oxygen to keep his saturation greater than or equal to 90%. Will apply for home oxygen therapy. The patient is an active smoker and supposedly has a history of COPD that could be complicating his recovery. (2) Acute respiratory failure with hypoxia Is this a current diagnosis for this admission?: Yes Plan: Secondary to the COVID pneumonia. Pneumonia has resolved however patient still requires oxygen therapy to maintain saturation greater than 90% (3) Anxiety Is this a current diagnosis for this admission?: Yes Plan: I have adjusted his medications again. I have changed him to venlafaxine 50 mg immediate release twice daily instead of 75 mg extended release. This should continue to augment the BuSpar to settle his anxiety. He is also extremely anxious from his prolonged hospitalization. If I can get home oxygen therapy I will be able to discharge him. The sensation of pills getting stuck in his throat is more likely due to his anxiety. If this persists we can check an upper GI series/esophagram. (4) Tobacco abuse Is this a current diagnosis for this admission?: Yes Plan: Continue to encourage cessation (5) Elevated transaminase level Is this a current diagnosis for this admission?: Yes Plan: AST is 125 and ALT is 254. They seem to be slowly improving. Likely from the COVID infection. (6) Abnormal EKG Is this a current diagnosis for this admission?: Yes Plan: Resolved ST changes noted at admission secondary to respiratory failure with hypoxia. Serial troponins were negative. EKG is normal. (7) Delirium Is this a current diagnosis for this admission?: Yes Plan: Second to infection. Resolved. Physical Exam Vital Signs: Temp Pulse Resp BP Pulse Ox 97.9 F 68 24 H 149/79 H 95 11/20/19 15:12 11/20/19 15:12 11/20/19 15:12 11/20/19 15:12 11/20/19 15:12 Pulse Oximeter Ambulatory Start: 11/19/19 15:33 Freq: ONCE Status: Active Protocol: Document 11/19/19 17:50 [facility] (Rec: 11/19/19 18:02 [facility] [email or web address]) Exercise Oximetry Treatment Ambulating SpO2 Charge Now No Additional RT Notes Other RN attempted ambulating sa02 with patient but patient not wanting to do, will attempt tomorrow Intake & Output 11/19/19 11/20/19 11/21/19 06:59 06:59 06:59 Intake Total 0 960 Output Total 700 950 450 Balance -700 10 -450 Weight 70 kg 68.3 kg General appearance: PRESENT: mild distress Respiratory exam: PRESENT: clear to auscultation alessandra, symmetrical, unlabored. ABSENT: rales, rhonchi, tachypnea, wheezes Cardiovascular exam: PRESENT: RRR, +S1, +S2 GI/Abdominal exam: PRESENT: normal bowel sounds, soft. ABSENT: distended, tenderness Psychiatric exam: ABSENT: agitated, anxious Results Laboratory Results: WBC 6.7 10^3/uL (4.0-10.5) 11/20/19 05:35 RBC 4.38 10^6/uL (4.35-5.55) 11/20/19 05:35 Hgb 12.9 g/dL (13.5-17.0) L 11/20/19 05:35 Hct 37.9 % (37.9-51.0) 11/20/19 05:35 MCV 87 fl (80-97) 11/20/19 05:35 MCH 29.5 pg (27.0-33.4) 11/20/19 05:35 MCHC 34.1 g/dL (32.0-36.0) 11/20/19 05:35 RDW 14.3 % (11.5-14.0) H 11/20/19 05:35 Plt Count 426 10^3/uL (150-450) 11/20/19 05:35 Lymph % (Auto) 6.5 % (13-45) L 11/12/19 11:00 [place] % (Auto) 9.2 % (3-13) 11/12/19 11:00 Eos % (Auto) 1.5 % (0-6) 11/12/19 11:00 Baso % (Auto) 0.3 % (0-2) 11/12/19 11:00 Absolute Neuts (auto) 15.4 10^3/uL (1.7-8.2) H 11/12/19 11:00 Absolute Lymphs (auto) 1.2 10^3/uL (0.5-4.7) 11/12/19 11:00 Absolute Monos (auto) 1.7 10^3/uL (0.1-1.4) H 11/12/19 11:00 Absolute Eos (auto) 0.3 10^3/uL (0.0-0.6) 11/12/19 11:00 Absolute Basos (auto) 0.0 10^3/uL (0.0-0.2) 11/12/19 11:00 Total Counted 100 11/08/19 03:12 Seg Neutrophils % 82.5 % (42-78) H 11/12/19 11:00 Seg Neuts % (Manual) 94 % (42-78) H 11/08/19 03:12 Band Neutrophils % 1 % (3-5) L 11/06/19 04:20 Lymphocytes % (Manual) 2 % (13-45) L 11/08/19 03:12 Monocytes % (Manual) 4 % (3-13) 11/08/19 03:12 Eosinophils % (Manual) 0 % (0-6) 11/08/19 03:12 Basophils % (Manual) 0 % (0-2) 11/08/19 03:12 Abs Neuts (Manual) 17.5 10^3/uL (1.7-8.2) H 11/08/19 03:12 Abs Lymphs (Manual) 0.4 10^3/uL (0.5-4.7) L 11/08/19 03:12 Abs Monocytes (Manual) 0.7 10^3/uL (0.1-1.4) 11/08/19 03:12 Absolute Eos (Manual) 0.0 10^3/uL (0.0-0.6) 11/08/19 03:12 Abs Basophils (Manual) 0.0 10^3/uL (0.0-0.2) 11/08/19 03:12 Toxic Granulation 1+ 11/06/19 04:20 Platelet Estimate Cancelled 11/09/19 06:05 Clumped Platelets PRESENT 11/03/19 07:59 Large Platelets PRESENT 11/07/19 13:20 Platelet Comment ADEQUATE 11/08/19 03:12 Polychromasia SLIGHT 11/06/19 04:20 Hypochromasia SLIGHT 11/08/19 03:12 Poikilocytosis SLIGHT 11/03/19 07:59 Anisocytosis SLIGHT 11/07/19 13:20 Tear Drop Cells SLIGHT 11/03/19 07:59 Ovalocytes SLIGHT 11/08/19 03:12 PT 12.8 SEC (11.4-15.4) 11/09/19 08:03 INR 0.94 11/09/19 08:03 INR (Anticoag Therapy) Cancelled 11/09/19 06:05 D-Dimer 2.63 ug/mL (0.00-0.50) H 11/18/19 05:20 Carbonic Acid 1.32 mmol/L (1.05-1.35) 11/17/19 01:38 HCO3/H2CO3 Ratio 23:1 11/17/19 01:38 ABG pH 7.46 (7.35-7.45) H 11/17/19 01:38 ABG pCO2 43.7 mmHg (35-45) 11/17/19 01:38 ABG pO2 70.1 mmHg (80-100) L 11/17/19 01:38 ABG HCO3 30.5 mmol/L (20-24) H 11/17/19 01:38 ABG Total CO2 31.9 mmol/L (23-27) H 11/17/19 01:38 ABG O2 Saturation 94.9 % (94-98) 11/17/19 01:38 ABG Base Excess 6.0 mmol/L 11/17/19 01:38 VBG pH 7.44 (7.30-7.42) H 11/02/19 11:45 VBG pCO2 34.5 mmHg (35-63) L 11/02/19 11:45 VBG HCO3 22.7 mmol/L (20-32) 11/02/19 11:45 VBG Base Excess -0.8 mmol/L 11/02/19 11:45 FiO2 6L 11/17/19 01:38 Sodium 137.2 mmol/L (137-145) 11/20/19 05:35 Potassium 4.4 mmol/L (3.6-5.0) 11/20/19 05:35 Chloride 98 mmol/L (98-107) 11/20/19 05:35 Carbon Dioxide 33 mmol/L (22-30) H 11/20/19 05:35 Anion Gap 6 (5-19) 11/20/19 05:35 BUN 22 mg/dL (7-20) H 11/20/19 05:35 Creatinine 0.79 mg/dL (0.52-1.25) 11/20/19 05:35 Est GFR ( Amer) > 60 (>60) 11/20/19 05:35 Est GFR (Non-Af Amer) Cancelled 11/09/19 06:05 Est GFR (MDRD) Non-Af > 60 (>60) 11/20/19 05:35 Glucose 109 mg/dL (75-110) 11/20/19 05:35 POC Glucose 136 mg/dL (70-110) H 11/10/19 18:14 Lactic Acid 2.8 mmol/L (0.7-2.1) H 11/02/19 17:42 Calcium 8.7 mg/dL (8.4-10.2) 11/20/19 05:35 Phosphorus 4.3 mg/dL (2.5-4.5) 11/11/19 06:03 Magnesium 2.3 mg/dL (1.6-2.3) 11/20/19 05:35 Ferritin 577.00 ng/mL (17.9-464.0) H 11/18/19 05:20 Total Bilirubin 0.5 mg/dL (0.2-1.3) 11/20/19 05:35 Direct Bilirubin 0.0 mg/dL (0.0-0.4) 11/20/19 05:35 Neonat Total Bilirubin Not Reportable 11/20/19 05:35 Neonat Direct Bilirubin Not Reportable 11/20/19 05:35 Neonat Indirect Bili Not Reportable 11/20/19 05:35 AST 44 U/L (17-59) 11/20/19 05:35 ALT 106 U/L (<50) H 11/20/19 05:35 Alkaline Phosphatase 248 U/L (38-126) H 11/20/19 05:35 Lactate Dehydrogenase 632 U/L (120-246) H 11/12/19 11:00 Troponin I < 0.012 ng/mL 11/07/19 13:20 C-Reactive Protein 48.7 mg/L (<10.0) H 11/12/19 11:00 NT-Pro-B Natriuret Pep 175 pg/mL (<125) H 11/08/19 03:12 Total Protein 5.8 g/dL (6.3-8.2) L 11/20/19 05:35 Albumin 3.1 g/dL (3.5-5.0) L 11/20/19 05:35 Prealbumin 20.3 mg/dL (17.6-36.0) 11/10/19 03:35 Triglycerides 275 mg/dL (<150) H 11/09/19 12:28 Interleukin 6 49.8 pg/mL (0.0-12.2) H 11/10/19 11:50 EGFR Cancelled 11/09/19 06:05 Vitamin D 25-Hydroxy 21.8 ng/mL (14.7-68.3) 11/12/19 11:00 Urine Color CRISTELA 11/20/19 10:30 Urine Appearance SLIGHTLY-CLOUDY 11/20/19 10:30 Urine pH 5.0 (5.0-9.0) 11/20/19 10:30 Ur Specific [place] 1.027 11/20/19 10:30 Urine Protein NEGATIVE mg/dL (NEGATIVE) 11/20/19 10:30 Urine Glucose (UA) NEGATIVE mg/dL (NEGATIVE) 11/20/19 10:30 Urine Ketones NEGATIVE mg/dL (NEGATIVE) 11/20/19 10:30 Urine Blood NEGATIVE (NEGATIVE) 11/20/19 10:30 Urine Nitrite NEGATIVE (NEGATIVE) 11/20/19 10:30 Urine Bilirubin NEGATIVE (NEGATIVE) 11/20/19 10:30 Urine Urobilinogen NEGATIVE mg/dL (<2.0) 11/20/19 10:30 Ur Leukocyte Esterase NEGATIVE (NEGATIVE) 11/20/19 10:30 Urine WBC (Auto) 2 /HPF 11/20/19 10:30 Urine RBC (Auto) 20 /HPF 11/20/19 10:30 U Hyaline Cast (Auto) 3 /LPF 11/20/19 10:30 Urine Bacteria (Auto) TRACE /HPF 11/19/19 10:45 Squamous Epi Cells Auto <1 /HPF 11/12/19 22:00 Calcium Oxalate Cr Auto FEW /HPF 11/20/19 10:30 Urine Mucus (Auto) MANY /LPF 11/20/19 10:30 Urine Ascorbic Acid 40 (NEGATIVE) H 11/20/19 10:30 Slides for Path Review Cancelled 11/09/19 06:05 11/02/19 11/07/19 11/08/19 11:45 13:20 03:12 Troponin I < 0.012 < 0.012 NT-Pro-B Natriuret Pep 175 H Impressions: Chest X-Ray 11/02/19 11:39 IMPRESSION: Diffuse bilateral airspace disease consistent with atypical pneumonia or edema. Head CT 11/04/19 00:00 IMPRESSION: No acute intracranial findings. Incidental note is made of scant fluid levels within the sphenoid compartment. EVIDENCE OF ACUTE STROKE: NO. PICC Line Insertion 11/06/19 10:56 IMPRESSION: SUCCESSFUL PLACEMENT OF A 5 FR DUAL LUMEN 45 CM PICC IN THE LEFT BASILIC VEIN. Chest X-Ray 11/08/19 05:00 IMPRESSION: New left PICC with tip in the mid SVC. No significant interval change in patchy areas of consolidation, suggestive of multifocal pneumonia. Chest X-Ray 11/10/19 00:00 IMPRESSION: NO SIGNIFICANT CHANGE IN APPEARANCE OF THE CHEST. Plan Health Concerns: needs to wean from oxygen Plan of Treatment: home with oxygen. Patients arranging home health since there is no coverage Goals: complete taper from oxygen and continue to regain strength Time Spent: Greater than 30 Minutes Stroke Is this a Stroke Patient?: No Acute Heart Failure - Is this a Heart Failure Patient?: No
[2019-11-20] MEDS ORDERED: ALPRAZOLAM 0.5 MG TABLET PO ONE (19:58)
--- NOTE | 2019-11-20 20:05 | Progress Note ---
Provider Note Provider Note: 11/20/2019 8:00 PM Call from the nursing supervisor grading regarding this patient. Patient is laying on the floor than lying in bed than laying on the floor than lying in bed otherwise complaining that he cannot breathe. I discussed with the patient and his the fact that discharge was safe. They were able to obtain oxygen at home. Medications for anxiety have been initiated. He is on BuSpar 10 mg twice a day and venlafaxine 50 mg twice a day. Patient's called the nursing supervisor grading and stated that she wanted to take the patient home. I asked the nurse on [address] to see if the patient could call his . In addition I am giving him 1 mg of Xanax to see if it settles him enough to go home. If not I have spoken to psychiatry about evaluating the patient in the morning.
== END 2019-11-20 20:40 | disposition home health service (06) | DRG 177 ==
LOC: ER 11:37 → EH 13:23 → 3N 17:35 → ICU 11-03 03:02 → 3N 11-12 06:35
PROVIDERS: ADMIT Internal Medicine; ATTEND Hospitalist
PROC: 5A09557 Assistance with Respiratory Ventilation, Greater than 96 Consecutive Hours, Continuous Positive Airway Pressure (ICD-10-PCS; 2019-11-02)
PROC: 02HV33Z Insertion of Infusion Device into Superior Vena Cava, Percutaneous Approach (ICD-10-PCS; 2019-11-06)
PROC: B548ZZA Ultrasonography of Superior Vena Cava, Guidance (ICD-10-PCS; 2019-11-06)
PROC: 3E0436Z Introduction of Nutritional Substance into Central Vein, Percutaneous Approach (ICD-10-PCS; principal; 2019-11-08)
DX: U07.1 COVID-19 (principal); J12.89 Other viral pneumonia; J96.01 Acute respiratory failure with hypoxia; F17.200 Nicotine dependence, unspecified, uncomplicated; J45.909 Unspecified asthma, uncomplicated; R79.1 Abnormal coagulation profile; R41.0 Disorientation, unspecified; E87.6 Hypokalemia; Z71.6 Tobacco abuse counseling; Z78.1 Physical restraint status; F41.9 Anxiety disorder, unspecified; Z88.8 Allergy status to other drugs, medicaments and biological substances; F10.10 Alcohol abuse, uncomplicated; R74.0 Nonspecific elevation of levels of transaminase and lactic acid dehydrogenase [LDH]
CPT/HCPCS: 36415; 36573; 36600; 70450; 71045; 80048; 80053; 81001; 82306; 82728; 82803; 82962; 83520; 83605; 83615; 83735; 83880; 84100; 84134; 84478; 84484; 85025; 85027; 85379; 85610; 86140; 87040; 87070; 93005; 93010; 94640; 94660; 96374; 99291; 99292; J0133; J0456; J0696; J1100; J1642; J1644; J1650; J1815; J2060; J2270; J2704; J3360; J3411; J3486; J3490; J7030; J7040; J7050; J7060; J8540

== ENCOUNTER → 2020-01-28 | Outpatient (CLI) | payer SELFPAY ==
--- NOTE | 2020-01-28 13:36 | RADIOLOGY REPORT (SQ) ---
EXAM DESCRIPTION: CHEST PA/LATERAL IMAGES COMPLETED DATE/TIME: 01/28/2020 12:53 pm REASON FOR STUDY: COVID-19 COMPARISON: 11/10/2019 EXAM PARAMETERS: NUMBER OF VIEWS: two views TECHNIQUE: Digital Frontal and Lateral radiographic views of the chest acquired. RADIATION DOSE: NA LIMITATIONS: none FINDINGS: LUNGS AND PLEURA: Chronic interstitial changes. No focal consolidation. MEDIASTINUM AND HILAR STRUCTURES: No masses or contour abnormalities. HEART AND VASCULAR STRUCTURES: Heart size is borderline. No levy pulmonary edema. BONES: No acute findings. HARDWARE: None in the chest. OTHER: No other significant finding. IMPRESSION: Borderline cardiomegaly without levy pulmonary edema. Chronic lung changes. TECHNICAL DOCUMENTATION: JOB ID: [id number] 2010 [employer]- All Rights Reserved Reading location - IP/workstation name: [email or web address]
== END ==
LOC: OD 12:37
PROVIDERS: ATTEND Internal Medicine Pulmonary Disease
DX: Z09 Encounter for follow-up examination after completed treatment for conditions other than malignant neoplasm (principal); Z86.19 Personal history of other infectious and parasitic diseases
CPT/HCPCS: 71046

== ENCOUNTER → 2020-03-28 | Outpatient (CLI) | payer MEDICAID ==
--- NOTE | 2020-03-28 15:16 | RADIOLOGY REPORT (SQ) ---
EXAM DESCRIPTION: CHEST 2 VIEWS IMAGES COMPLETED DATE/TIME: 03/28/2020 3:02 pm REASON FOR STUDY: (U07.1)COVID-19 COMPARISON: 01/28/2020 EXAM PARAMETERS: NUMBER OF VIEWS: two views TECHNIQUE: Digital Frontal and Lateral radiographic views of the chest acquired. RADIATION DOSE: NA LIMITATIONS: none FINDINGS: LUNGS AND PLEURA: Prominent bibasilar interstitial markings no focal consolidation or effu shannon. Similar findings were noted in December. MEDIASTINUM AND HILAR STRUCTURES: No masses or contour abnormalities. HEART AND VASCULAR STRUCTURES: Heart normal size. No evidence for failure. BONES: No acute findings. HARDWARE: None in the chest. OTHER: No other significant finding. IMPRESSION: Stable bibasilar interstitial markings. No focal consolidation. TECHNICAL DOCUMENTATION: JOB ID: [id number] 2010 [employer]- All Rights Reserved Reading location - IP/workstation name: [email or web address]
== END ==
LOC: RAD 14:20
PROVIDERS: ATTEND Internal Medicine Pulmonary Disease
DX: U07.1 COVID-19 (principal)
CPT/HCPCS: 71046